=== PATIENT | female | born 1965 | race Caucasian/White ===

== ENCOUNTER 2016-06-01 12:39 | Emergency (ER) | payer OTHER, MEDICARE ==
--- NOTE | 2016-06-01 14:50 | EDDOCDS ---
Physician Documentation [facility] Name: Candice Malcolm Age: 50 yrs Sex: Female : 1965 Arrival Date: 06/01/2016 Time: 12:39 Bed TR7 Private MD: rGeg Wolf A. Disposition: 06/01/16 14:49 Patient has left against medical advice. - Patients states they are going to Home/Self Care. - Condition is Stable. Medication Reconciliation, Local Pharmacy Hours form. Follow up: Private Physician; When: As needed. Historical: - Allergies: Aspirin; Erythromycin; PENICILLINS; SULFA (SULFONAMIDES); - Home Meds: 1. Clozaril 325 oral once daily pt reports taking 650 mg this am (Last dose: 06/01/2016) 2. atenolol 25 mg Oral tab 1 tab once daily (Last dose: 05/31/2016) 3. Ativan 1 mg Oral tab 1 tab qid (Last dose: 06/01/2016) 4. Paxil 40 mg Oral tab 1 tab once daily (Last dose: 06/01/2016) 5. Requip 4 mg Oral tab 1 tab daily (Last dose: Unknown) 6. Synthroid 100 mcg oral tab 1 tab once daily - PMHx: Anxiety; Asthma; Depression; Hernia; Hypothyroidism; restless leg syndrome; tachycardia; - PSHx: D & C; Uterine Ablation; Tubal ligation; Oophorectomy- bilateral; - Social history: Smoking status: Patient states was never smoker of tobacco. No barriers to communication noted. - : The pt / caregiver states he / she is not on anticoagulants. Home medication list is obtained from the patient. - Exposure Risk Screening:: None identified. 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 I don't get them any more". mb9 Vital Signs: 12:41 BP 144 / 83; Pulse 105; Resp 18 S; Temp 96.9(O); Pulse Ox 100% on R/A; Weight 99.79 kg gr2 / 220 lbs (R); Height 5 ft. 6 in. (167.64 cm) (R); Pain 3/10; 12:41 Body Mass Index 35.51 (99.79 kg, 167.64 cm) gr2 MDM: 13:37 ED course: prior to going into patient's room patient had eloped notified PSA who will sd1 do pickup letter if unable to convince patient to return. Signatures: Junie Mccall MD MD sd1 Dereck Fuller RN RN bcj Rogelio Green RN RN mb9 MTDHuy
--- NOTE | 2016-06-01 14:50 | EDDOCDS ---
Nurse's Notes [facility] Name: Candice Malcolm Age: 50 yrs Sex: Female : 1965 Arrival Date: 06/01/2016 Time: 12:39 Bed TR7 Private MD: Greg Wolf A. Diagnosis: Presentation: 06/01 12:47 Presenting complaint: Patient states: "There is probably nothing you can do for me". mb9 pt's daughter states, "She takes clazaril and her dr in [place] told her to take a double dose this morning because she hasn't taken it in 2 days". pt reports that normally she takes 325 mg daily and that a Dr Chao in [place] told her to take 650 mg this am. pt reports missing a dose in the past that she has had the same symptoms. Adult Sepsis Screening: The patient does not have new or worsening altered mentation. Patient's respiratory rate is less than 22. Systolic blood pressure is greater than 100. Patient has a qSOFA score of 0- Negative Sepsis Screen. Suicide/Homicide risk assessment- the patient denies having any suicidal and/or homicidal ideations and does not present with any other emotional, behavioral or mental health complaints. 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 Transition of care: patient was not received from another setting of care. 12:47 Acuity: JAVED Level 3 mb9 12:47 Method Of Arrival: Walkin/Carried/Asstd mb9 Triage Assessment: 12:53 General: Appears in no apparent distress, Behavior is pleasant, quiet. Pain: Denies mb9 pain. HIV screening NA for this visit Offered previously. Neurological: Level of Consciousness is awake, alert, lethargic, Oriented to person, place, time. Respiratory: Airway is patent Respiratory effort is even, unlabored. 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 I don't get them any more". mb9 Historical: - Allergies: Aspirin; Erythromycin; PENICILLINS; SULFA (SULFONAMIDES); - Home Meds: 1. Clozaril 325 oral once daily pt reports taking 650 mg this am (Last dose: 06/01/2016) 2. atenolol 25 mg Oral tab 1 tab once daily (Last dose: 05/31/2016) 3. Ativan 1 mg Oral tab 1 tab qid (Last dose: 06/01/2016) 4. Paxil 40 mg Oral tab 1 tab once daily (Last dose: 06/01/2016) 5. Requip 4 mg Oral tab 1 tab daily (Last dose: Unknown) 6. Synthroid 100 mcg oral tab 1 tab once daily - PMHx: Anxiety; Asthma; Depression; Hernia; Hypothyroidism; restless leg syndrome; tachycardia; - PSHx: D & C; Uterine Ablation; Tubal ligation; Oophorectomy- bilateral; - Social history: Smoking status: Patient states was never smoker of tobacco. No barriers to communication noted. - : The pt / caregiver states he / she is not on anticoagulants. Home medication list is obtained from the patient. - Exposure Risk Screening:: None identified. Assessment: 13:13 General: TARAN Epps states he spoke with patient's psychiatrist and was told that he kcs would never tell a patient to double up on her meds and this should be treated as a true overdose.. Vital Signs: 12:41 BP 144 / 83; Pulse 105; Resp 18 S; Temp 96.9(O); Pulse Ox 100% on R/A; Weight 99.79 kg gr2 (R); Height 5 ft. 6 in. (167.64 cm) (R); Pain 3/10; 12:41 Body Mass Index 35.51 (99.79 kg, 167.64 cm) gr2 Vitals: 12:41 Log In Time: June 01, 2016 at 12:41. RN notified that patient meets Red Flag gr2 criteria. ED Course: 12:40 Patient visited by Fernanda Umaña. gr2 12:40 Patient moved to Waiting gr2 12:41 Greg Wolf is Private Physician. gr2 12:45 Patient visited by Fernanda Umaña. gr2 12:46 Patient moved to Pre RCE gr2 12:50 Triage Initiated mb9 13:00 Patient moved to Triage 3 mb9 13:31 Patient moved to 3 mb9 13:34 [facility] bs[facility] 13:34 Junei Mccall MD is Attending Physician. bs6 13:38 Patient moved to I10 / 23 sd1 13:44 Patient moved to TR7 mk4 Order Results: There are currently no results for this order. Outcome: 14:49 Patient left against medical advice. [facility] 14:49 Patient left the ED. [facility] Signatures: Junie Mccall MD MD sd1 Kerry Roldan, RN RN kcs Dereck Fuller RN RN bcj Fernanda Umaña gr2 Alisha Tineo RN RN mk4 Lorrie Albarado DO DO bs6 Rogelio GreenRN RN mb9 MTDD
--- NOTE | 2016-06-03 15:51 | EDDOCDS ---
Nurse's Notes [facility] Name: Candice Malcolm Age: 50 yrs Sex: Female : 1965 Arrival Date: 06/01/2016 Time: 12:39 Bed TR7 Private MD: Greg Wolf A. Diagnosis: Presentation: 06/01 12:47 Presenting complaint: Patient states: "There is probably nothing you can do for me". mb9 pt's daughter states, "She takes clazaril and her dr in [place] told her to take a double dose this morning because she hasn't taken it in 2 days". pt reports that normally she takes 325 mg daily and that a Dr Chao in [place] told her to take 650 mg this am. pt reports missing a dose in the past that she has had the same symptoms. Adult Sepsis Screening: The patient does not have new or worsening altered mentation. Patient's respiratory rate is less than 22. Systolic blood pressure is greater than 100. Patient has a qSOFA score of 0- Negative Sepsis Screen. Suicide/Homicide risk assessment- the patient denies having any suicidal and/or homicidal ideations and does not present with any other emotional, behavioral or mental health complaints. 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 Transition of care: patient was not received from another setting of care. 12:47 Acuity: JAVED Level 3 mb9 12:47 Method Of Arrival: Walkin/Carried/Asstd mb9 Triage Assessment: 12:53 General: Appears in no apparent distress, Behavior is pleasant, quiet. Pain: Denies mb9 pain. HIV screening NA for this visit Offered previously. Neurological: Level of Consciousness is awake, alert, lethargic, Oriented to person, place, time. Respiratory: Airway is patent Respiratory effort is even, unlabored. 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 I don't get them any more". mb9 Historical: - Allergies: Aspirin; Erythromycin; PENICILLINS; SULFA (SULFONAMIDES); - Home Meds: 1. Clozaril 325 oral once daily pt reports taking 650 mg this am (Last dose: 06/01/2016) 2. atenolol 25 mg Oral tab 1 tab once daily (Last dose: 05/31/2016) 3. Ativan 1 mg Oral tab 1 tab qid (Last dose: 06/01/2016) 4. Paxil 40 mg Oral tab 1 tab once daily (Last dose: 06/01/2016) 5. Requip 4 mg Oral tab 1 tab daily (Last dose: Unknown) 6. Synthroid 100 mcg oral tab 1 tab once daily - PMHx: Anxiety; Asthma; Depression; Hernia; Hypothyroidism; restless leg syndrome; tachycardia; - PSHx: D & C; Uterine Ablation; Tubal ligation; Oophorectomy- bilateral; - Social history: Smoking status: Patient states was never smoker of tobacco. No barriers to communication noted. - : The pt / caregiver states he / she is not on anticoagulants. Home medication list is obtained from the patient. - Exposure Risk Screening:: None identified. Assessment: 13:13 General: TARAN Epps states he spoke with patient's psychiatrist and was told that he kcs would never tell a patient to double up on her meds and this should be treated as a true overdose.. Vital Signs: 12:41 BP 144 / 83; Pulse 105; Resp 18 S; Temp 96.9(O); Pulse Ox 100% on R/A; Weight 99.79 kg gr2 (R); Height 5 ft. 6 in. (167.64 cm) (R); Pain 3/10; 12:41 Body Mass Index 35.51 (99.79 kg, 167.64 cm) gr2 Vitals: 12:41 Log In Time: June 01, 2016 at 12:41. RN notified that patient meets Red Flag gr2 criteria. ED Course: 12:40 Patient visited by Fernanda Umaña. gr2 12:40 Patient moved to Waiting gr2 12:41 Greg Wolf is Private Physician. gr2 12:45 Patient visited by Fernanda Umaña. gr2 12:46 Patient moved to Pre RCE gr2 12:50 Triage Initiated mb9 13:00 Patient moved to Triage 3 mb9 13:31 Patient moved to 3 mb9 13:34 [facility] bs[facility] 13:34 Junie Mccall MD is Attending Physician. bs6 13:38 Patient moved to I10 / 23 sd1 13:44 Patient moved to TR7 mk4 Order Results: There are currently no results for this order. Outcome: 14:49 Patient left against medical advice. [facility] 14:49 Patient left the ED. [facility] Signatures: Junie Mccall MD MD sd1 Kerry Roldan, RN RN kcs Dereck Fuller RN RN bcj Fernanda Umaña gr2 Alisha Tineo RN RN mk4 Lorrie Albarado DO DO bs6 Rogelio GreenRN RN mb9 Chart Complete MTDD
--- NOTE | 2016-06-03 15:51 | EDDOCDS ---
Physician Documentation [facility] Name: Candice Malcolm Age: 50 yrs Sex: Female : 1965 Arrival Date: 06/01/2016 Time: 12:39 Bed TR7 Private MD: Greg Wolf A. Disposition: 06/01/16 14:49 Patient has left against medical advice. - Patients states they are going to Home/Self Care. - Condition is Stable. Medication Reconciliation, Local Pharmacy Hours form. Follow up: Private Physician; When: As needed. Historical: - Allergies: Aspirin; Erythromycin; PENICILLINS; SULFA (SULFONAMIDES); - Home Meds: 1. Clozaril 325 oral once daily pt reports taking 650 mg this am (Last dose: 06/01/2016) 2. atenolol 25 mg Oral tab 1 tab once daily (Last dose: 05/31/2016) 3. Ativan 1 mg Oral tab 1 tab qid (Last dose: 06/01/2016) 4. Paxil 40 mg Oral tab 1 tab once daily (Last dose: 06/01/2016) 5. Requip 4 mg Oral tab 1 tab daily (Last dose: Unknown) 6. Synthroid 100 mcg oral tab 1 tab once daily - PMHx: Anxiety; Asthma; Depression; Hernia; Hypothyroidism; restless leg syndrome; tachycardia; - PSHx: D & C; Uterine Ablation; Tubal ligation; Oophorectomy- bilateral; - Social history: Smoking status: Patient states was never smoker of tobacco. No barriers to communication noted. - : The pt / caregiver states he / she is not on anticoagulants. Home medication list is obtained from the patient. - Exposure Risk Screening:: None identified. 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 I don't get them any more". mb9 Vital Signs: 12:41 BP 144 / 83; Pulse 105; Resp 18 S; Temp 96.9(O); Pulse Ox 100% on R/A; Weight 99.79 kg gr2 / 220 lbs (R); Height 5 ft. 6 in. (167.64 cm) (R); Pain 3/10; 12:41 Body Mass Index 35.51 (99.79 kg, 167.64 cm) gr2 MDM: 13:37 ED course: prior to going into patient's room patient had eloped notified PSA who will sd1 do pickup letter if unable to convince patient to return. Signatures: Junie Mccall MD MD sd1 Dereck Fuller RN RN bcj Rogelio Green RN RN mb9 Chart Complete MTDD
--- NOTE | 2016-06-03 15:51 | EDDOCDS ---
Physician Documentation [facility] Name: Candice Malcolm Age: 50 yrs Sex: Female : 1965 Arrival Date: 06/01/2016 Time: 12:39 Bed TR7 Private MD: Greg Wolf A. Disposition: 06/01/16 14:49 Patient has left against medical advice. - Patients states they are going to Home/Self Care. - Condition is Stable. Medication Reconciliation, Local Pharmacy Hours form. Follow up: Private Physician; When: As needed. Historical: - Allergies: Aspirin; Erythromycin; PENICILLINS; SULFA (SULFONAMIDES); - Home Meds: 1. Clozaril 325 oral once daily pt reports taking 650 mg this am (Last dose: 06/01/2016) 2. atenolol 25 mg Oral tab 1 tab once daily (Last dose: 05/31/2016) 3. Ativan 1 mg Oral tab 1 tab qid (Last dose: 06/01/2016) 4. Paxil 40 mg Oral tab 1 tab once daily (Last dose: 06/01/2016) 5. Requip 4 mg Oral tab 1 tab daily (Last dose: Unknown) 6. Synthroid 100 mcg oral tab 1 tab once daily - PMHx: Anxiety; Asthma; Depression; Hernia; Hypothyroidism; restless leg syndrome; tachycardia; - PSHx: D & C; Uterine Ablation; Tubal ligation; Oophorectomy- bilateral; - Social history: Smoking status: Patient states was never smoker of tobacco. No barriers to communication noted. - : The pt / caregiver states he / she is not on anticoagulants. Home medication list is obtained from the patient. - Exposure Risk Screening:: None identified. 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 I don't get them any more". mb9 Vital Signs: 12:41 BP 144 / 83; Pulse 105; Resp 18 S; Temp 96.9(O); Pulse Ox 100% on R/A; Weight 99.79 kg gr2 / 220 lbs (R); Height 5 ft. 6 in. (167.64 cm) (R); Pain 3/10; 12:41 Body Mass Index 35.51 (99.79 kg, 167.64 cm) gr2 MDM: 13:37 ED course: prior to going into patient's room patient had eloped notified PSA who will sd1 do pickup letter if unable to convince patient to return. Signatures: Junie Mccall MD MD sd1 Dereck Fuller RN RN bcj Rogelio Green RN RN mb9 Chart Complete MTDD
--- NOTE | 2016-06-07 07:53 | EDDOCDS ---
Nurse's Notes [facility] Name: Candice Malcolm Age: 50 yrs Sex: Female : 1965 Arrival Date: 06/01/2016 Time: 12:39 Bed TR7 Private MD: Greg Wolf A. Diagnosis: Presentation: 06/01 12:47 Presenting complaint: Patient states: "There is probably nothing you can do for me". mb9 pt's daughter states, "She takes clazaril and her dr in [place] told her to take a double dose this morning because she hasn't taken it in 2 days". pt reports that normally she takes 325 mg daily and that a Dr Chao in [place] told her to take 650 mg this am. pt reports missing a dose in the past that she has had the same symptoms. Adult Sepsis Screening: The patient does not have new or worsening altered mentation. Patient's respiratory rate is less than 22. Systolic blood pressure is greater than 100. Patient has a qSOFA score of 0- Negative Sepsis Screen. Suicide/Homicide risk assessment- the patient denies having any suicidal and/or homicidal ideations and does not present with any other emotional, behavioral or mental health complaints. 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 Transition of care: patient was not received from another setting of care. 12:47 Acuity: JAVED Level 3 mb9 12:47 Method Of Arrival: Walkin/Carried/Asstd mb9 Triage Assessment: 12:53 General: Appears in no apparent distress, Behavior is pleasant, quiet. Pain: Denies mb9 pain. HIV screening NA for this visit Offered previously. Neurological: Level of Consciousness is awake, alert, lethargic, Oriented to person, place, time. Respiratory: Airway is patent Respiratory effort is even, unlabored. 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 I don't get them any more". mb9 Historical: - Allergies: Aspirin; Erythromycin; PENICILLINS; SULFA (SULFONAMIDES); - Home Meds: 1. Clozaril 325 oral once daily pt reports taking 650 mg this am (Last dose: 06/01/2016) 2. atenolol 25 mg Oral tab 1 tab once daily (Last dose: 05/31/2016) 3. Ativan 1 mg Oral tab 1 tab qid (Last dose: 06/01/2016) 4. Paxil 40 mg Oral tab 1 tab once daily (Last dose: 06/01/2016) 5. Requip 4 mg Oral tab 1 tab daily (Last dose: Unknown) 6. Synthroid 100 mcg oral tab 1 tab once daily - PMHx: Anxiety; Asthma; Depression; Hernia; Hypothyroidism; restless leg syndrome; tachycardia; - PSHx: D & C; Uterine Ablation; Tubal ligation; Oophorectomy- bilateral; - Social history: Smoking status: Patient states was never smoker of tobacco. No barriers to communication noted. - : The pt / caregiver states he / she is not on anticoagulants. Home medication list is obtained from the patient. - Exposure Risk Screening:: None identified. Assessment: 13:13 General: TARAN Epps states he spoke with patient's psychiatrist and was told that he [facility] would never tell a patient to double up on her meds and this should be treated as a true overdose.. Vital Signs: 12:41 BP 144 / 83; Pulse 105; Resp 18 S; Temp 96.9(O); Pulse Ox 100% on R/A; Weight 99.79 kg gr2 (R); Height 5 ft. 6 in. (167.64 cm) (R); Pain 3/10; 12:41 Body Mass Index 35.51 (99.79 kg, 167.64 cm) gr2 Vitals: 12:41 Log In Time: June 01, 2016 at 12:41. RN notified that patient meets Red Flag gr2 criteria. ED Course: 12:40 Patient visited by Fernanda Umaña. gr2 12:40 Patient moved to Waiting gr2 12:41 Greg Wolf is Private Physician. gr2 12:45 Patient visited by Fernanda Umaña. gr2 12:46 Patient moved to Pre RCE gr2 12:50 Triage Initiated mb9 13:00 Patient moved to Triage 3 mb9 13:31 Patient moved to 3 mb9 13:34 [facility] Albarado [facility] bs6 13:34 Junie Mccall MD is Attending Physician. bs6 13:38 Patient moved to I10 / 23 sd1 13:44 Patient moved to TR7 mk4 Order Results: There are currently no results for this order. Outcome: 14:49 Patient left against medical advice. [facility] 14:49 Patient left the ED. [facility] Addendum: 06/07/2016 07:52 Narrative: Pt returned a few hours later for treatment of same. tc Signatures: Junie Mccall MD MD sd1 Kerry Roldan, RN RN [facility] Arlet Lainez tc Dereck Fuller RN RN trevorj Fernanda Umaña gr2 Alisha Tineo RN RN mk4 Lorrie Albarado, DO bs6 Rogelio GreenRN RN mb9 MTDD
--- NOTE | 2016-06-07 07:53 | EDDOCDS ---
Physician Documentation [facility] Name: Candice Malcolm Age: 50 yrs Sex: Female : 1965 Arrival Date: 06/01/2016 Time: 12:39 Bed TR7 Private MD: Greg Wolf A. Disposition: 06/01/16 14:49 Patient has left against medical advice. - Patients states they are going to Home/Self Care. - Condition is Stable. Medication Reconciliation, Local Pharmacy Hours form. Follow up: Private Physician; When: As needed. Historical: - Allergies: Aspirin; Erythromycin; PENICILLINS; SULFA (SULFONAMIDES); - Home Meds: 1. Clozaril 325 oral once daily pt reports taking 650 mg this am (Last dose: 06/01/2016) 2. atenolol 25 mg Oral tab 1 tab once daily (Last dose: 05/31/2016) 3. Ativan 1 mg Oral tab 1 tab qid (Last dose: 06/01/2016) 4. Paxil 40 mg Oral tab 1 tab once daily (Last dose: 06/01/2016) 5. Requip 4 mg Oral tab 1 tab daily (Last dose: Unknown) 6. Synthroid 100 mcg oral tab 1 tab once daily - PMHx: Anxiety; Asthma; Depression; Hernia; Hypothyroidism; restless leg syndrome; tachycardia; - PSHx: D & C; Uterine Ablation; Tubal ligation; Oophorectomy- bilateral; - Social history: Smoking status: Patient states was never smoker of tobacco. No barriers to communication noted. - : The pt / caregiver states he / she is not on anticoagulants. Home medication list is obtained from the patient. - Exposure Risk Screening:: None identified. 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 I don't get them any more". mb9 Vital Signs: 12:41 BP 144 / 83; Pulse 105; Resp 18 S; Temp 96.9(O); Pulse Ox 100% on R/A; Weight 99.79 kg gr2 / 220 lbs (R); Height 5 ft. 6 in. (167.64 cm) (R); Pain 3/10; 12:41 Body Mass Index 35.51 (99.79 kg, 167.64 cm) gr2 MDM: 13:37 ED course: prior to going into patient's room patient had eloped notified PSA who will sd1 do pickup letter if unable to convince patient to return. Signatures: Junie Mccall MD MD sd1 Dereck Fuller RN RN bcj Rogelio Green RN RN mb9 MTDHuy
--- NOTE | 2016-06-07 07:53 | EDDOCDS ---
Physician Documentation [facility] Name: Candice Malcolm Age: 50 yrs Sex: Female : 1965 Arrival Date: 06/01/2016 Time: 12:39 Bed TR7 Private MD: Greg Wolf A. Disposition: 06/01/16 14:49 Patient has left against medical advice. - Patients states they are going to Home/Self Care. - Condition is Stable. Medication Reconciliation, Local Pharmacy Hours form. Follow up: Private Physician; When: As needed. Historical: - Allergies: Aspirin; Erythromycin; PENICILLINS; SULFA (SULFONAMIDES); - Home Meds: 1. Clozaril 325 oral once daily pt reports taking 650 mg this am (Last dose: 06/01/2016) 2. atenolol 25 mg Oral tab 1 tab once daily (Last dose: 05/31/2016) 3. Ativan 1 mg Oral tab 1 tab qid (Last dose: 06/01/2016) 4. Paxil 40 mg Oral tab 1 tab once daily (Last dose: 06/01/2016) 5. Requip 4 mg Oral tab 1 tab daily (Last dose: Unknown) 6. Synthroid 100 mcg oral tab 1 tab once daily - PMHx: Anxiety; Asthma; Depression; Hernia; Hypothyroidism; restless leg syndrome; tachycardia; - PSHx: D & C; Uterine Ablation; Tubal ligation; Oophorectomy- bilateral; - Social history: Smoking status: Patient states was never smoker of tobacco. No barriers to communication noted. - : The pt / caregiver states he / she is not on anticoagulants. Home medication list is obtained from the patient. - Exposure Risk Screening:: None identified. 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 I don't get them any more". mb9 Vital Signs: 12:41 BP 144 / 83; Pulse 105; Resp 18 S; Temp 96.9(O); Pulse Ox 100% on R/A; Weight 99.79 kg gr2 / 220 lbs (R); Height 5 ft. 6 in. (167.64 cm) (R); Pain 3/10; 12:41 Body Mass Index 35.51 (99.79 kg, 167.64 cm) gr2 MDM: 13:37 ED course: prior to going into patient's room patient had eloped notified PSA who will sd1 do pickup letter if unable to convince patient to return. Signatures: Junie Mccall MD MD sd1 Dereck Fuller RN RN bcj Rogelio Green RN RN mb9 MTDHuy
--- NOTE | 2016-06-08 13:08 | EDDOCDS ---
Nurse's Notes [facility] Name: Candice Malcolm Age: 50 yrs Sex: Female : 1965 Arrival Date: 06/01/2016 Time: 12:39 Bed TR7 Private MD: Greg Wolf A. Diagnosis: Presentation: 06/01 12:47 Presenting complaint: Patient states: "There is probably nothing you can do for me". mb9 pt's daughter states, "She takes clazaril and her dr in [place] told her to take a double dose this morning because she hasn't taken it in 2 days". pt reports that normally she takes 325 mg daily and that a Dr Chao in [place] told her to take 650 mg this am. pt reports missing a dose in the past that she has had the same symptoms. Adult Sepsis Screening: The patient does not have new or worsening altered mentation. Patient's respiratory rate is less than 22. Systolic blood pressure is greater than 100. Patient has a qSOFA score of 0- Negative Sepsis Screen. Suicide/Homicide risk assessment- the patient denies having any suicidal and/or homicidal ideations and does not present with any other emotional, behavioral or mental health complaints. 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 Transition of care: patient was not received from another setting of care. 12:47 Acuity: JAVED Level 3 mb9 12:47 Method Of Arrival: Walkin/Carried/Asstd mb9 Triage Assessment: 12:53 General: Appears in no apparent distress, Behavior is pleasant, quiet. Pain: Denies mb9 pain. HIV screening NA for this visit Offered previously. Neurological: Level of Consciousness is awake, alert, lethargic, Oriented to person, place, time. Respiratory: Airway is patent Respiratory effort is even, unlabored. 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 I don't get them any more". mb9 Historical: - Allergies: Aspirin; Erythromycin; PENICILLINS; SULFA (SULFONAMIDES); - Home Meds: 1. Clozaril 325 oral once daily pt reports taking 650 mg this am (Last dose: 06/01/2016) 2. atenolol 25 mg Oral tab 1 tab once daily (Last dose: 05/31/2016) 3. Ativan 1 mg Oral tab 1 tab qid (Last dose: 06/01/2016) 4. Paxil 40 mg Oral tab 1 tab once daily (Last dose: 06/01/2016) 5. Requip 4 mg Oral tab 1 tab daily (Last dose: Unknown) 6. Synthroid 100 mcg oral tab 1 tab once daily - PMHx: Anxiety; Asthma; Depression; Hernia; Hypothyroidism; restless leg syndrome; tachycardia; - PSHx: D & C; Uterine Ablation; Tubal ligation; Oophorectomy- bilateral; - Social history: Smoking status: Patient states was never smoker of tobacco. No barriers to communication noted. - : The pt / caregiver states he / she is not on anticoagulants. Home medication list is obtained from the patient. - Exposure Risk Screening:: None identified. Assessment: 13:13 General: TARAN Epps states he spoke with patient's psychiatrist and was told that he [facility] would never tell a patient to double up on her meds and this should be treated as a true overdose.. Vital Signs: 12:41 BP 144 / 83; Pulse 105; Resp 18 S; Temp 96.9(O); Pulse Ox 100% on R/A; Weight 99.79 kg gr2 (R); Height 5 ft. 6 in. (167.64 cm) (R); Pain 3/10; 12:41 Body Mass Index 35.51 (99.79 kg, 167.64 cm) gr2 Vitals: 12:41 Log In Time: June 01, 2016 at 12:41. RN notified that patient meets Red Flag gr2 criteria. ED Course: 12:40 Patient visited by Fernanda Umaña. gr2 12:40 Patient moved to Waiting gr2 12:41 Greg Wolf is Private Physician. gr2 12:45 Patient visited by Fernanda Umaña. gr2 12:46 Patient moved to Pre RCE gr2 12:50 Triage Initiated mb9 13:00 Patient moved to Triage 3 mb9 13:31 Patient moved to 3 mb9 13:34 [facility] bs6 13:34 Junie Mccall MD is Attending Physician. bs6 13:38 Patient moved to I10 / 23 sd1 13:44 Patient moved to TR7 mk4 Order Results: There are currently no results for this order. Outcome: 14:49 Patient left against medical advice. [facility] 14:49 Patient left the ED. [facility] Addendum: 06/07/2016 07:52 Narrative: Pt returned a few hours later for treatment of same. tc Signatures: Junie Mccall MD MD sd1 Kerry Roldan, RN RN [facility] Arlet Lainez tc Dereck Fuller RN RN bcj Fernanda Umaña gr2 Alisha Tineo RN RN mk4 Lorrie Albarado, DO DO bs6 Rogelio GreenRN RN mb9 Chart Complete MTDD
--- NOTE | 2016-06-08 13:08 | EDDOCDS ---
Physician Documentation [facility] Name: Candice Malcolm Age: 50 yrs Sex: Female : 1965 Arrival Date: 06/01/2016 Time: 12:39 Bed TR7 Private MD: Greg Wolf A. Disposition: 06/01/16 14:49 Patient has left against medical advice. - Patients states they are going to Home/Self Care. - Condition is Stable. Medication Reconciliation, Local Pharmacy Hours form. Follow up: Private Physician; When: As needed. Historical: - Allergies: Aspirin; Erythromycin; PENICILLINS; SULFA (SULFONAMIDES); - Home Meds: 1. Clozaril 325 oral once daily pt reports taking 650 mg this am (Last dose: 06/01/2016) 2. atenolol 25 mg Oral tab 1 tab once daily (Last dose: 05/31/2016) 3. Ativan 1 mg Oral tab 1 tab qid (Last dose: 06/01/2016) 4. Paxil 40 mg Oral tab 1 tab once daily (Last dose: 06/01/2016) 5. Requip 4 mg Oral tab 1 tab daily (Last dose: Unknown) 6. Synthroid 100 mcg oral tab 1 tab once daily - PMHx: Anxiety; Asthma; Depression; Hernia; Hypothyroidism; restless leg syndrome; tachycardia; - PSHx: D & C; Uterine Ablation; Tubal ligation; Oophorectomy- bilateral; - Social history: Smoking status: Patient states was never smoker of tobacco. No barriers to communication noted. - : The pt / caregiver states he / she is not on anticoagulants. Home medication list is obtained from the patient. - Exposure Risk Screening:: None identified. 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 I don't get them any more". mb9 Vital Signs: 12:41 BP 144 / 83; Pulse 105; Resp 18 S; Temp 96.9(O); Pulse Ox 100% on R/A; Weight 99.79 kg gr2 / 220 lbs (R); Height 5 ft. 6 in. (167.64 cm) (R); Pain 3/10; 12:41 Body Mass Index 35.51 (99.79 kg, 167.64 cm) gr2 MDM: 13:37 ED course: prior to going into patient's room patient had eloped notified PSA who will sd1 do pickup letter if unable to convince patient to return. Signatures: Junie Mccall MD MD sd1 Dereck Fuller RN RN bcj Rogelio Green RN RN mb9 Chart Complete MTDD
--- NOTE | 2016-06-08 13:08 | EDDOCDS ---
Physician Documentation [facility] Name: Candice Malcolm Age: 50 yrs Sex: Female : 1965 Arrival Date: 06/01/2016 Time: 12:39 Bed TR7 Private MD: Greg Wolf A. Disposition: 06/01/16 14:49 Patient has left against medical advice. - Patients states they are going to Home/Self Care. - Condition is Stable. Medication Reconciliation, Local Pharmacy Hours form. Follow up: Private Physician; When: As needed. Historical: - Allergies: Aspirin; Erythromycin; PENICILLINS; SULFA (SULFONAMIDES); - Home Meds: 1. Clozaril 325 oral once daily pt reports taking 650 mg this am (Last dose: 06/01/2016) 2. atenolol 25 mg Oral tab 1 tab once daily (Last dose: 05/31/2016) 3. Ativan 1 mg Oral tab 1 tab qid (Last dose: 06/01/2016) 4. Paxil 40 mg Oral tab 1 tab once daily (Last dose: 06/01/2016) 5. Requip 4 mg Oral tab 1 tab daily (Last dose: Unknown) 6. Synthroid 100 mcg oral tab 1 tab once daily - PMHx: Anxiety; Asthma; Depression; Hernia; Hypothyroidism; restless leg syndrome; tachycardia; - PSHx: D & C; Uterine Ablation; Tubal ligation; Oophorectomy- bilateral; - Social history: Smoking status: Patient states was never smoker of tobacco. No barriers to communication noted. - : The pt / caregiver states he / she is not on anticoagulants. Home medication list is obtained from the patient. - Exposure Risk Screening:: None identified. 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 I don't get them any more". mb9 Vital Signs: 12:41 BP 144 / 83; Pulse 105; Resp 18 S; Temp 96.9(O); Pulse Ox 100% on R/A; Weight 99.79 kg gr2 / 220 lbs (R); Height 5 ft. 6 in. (167.64 cm) (R); Pain 3/10; 12:41 Body Mass Index 35.51 (99.79 kg, 167.64 cm) gr2 MDM: 13:37 ED course: prior to going into patient's room patient had eloped notified PSA who will sd1 do pickup letter if unable to convince patient to return. Signatures: Junie Mccall MD MD sd1 Dercek Fuller RN RN bcj Rogelio Green RN RN mb9 Chart Complete MTDD
== END 2016-06-01 14:49 | disposition left against medical advice (07) ==
LOC: M ED 12:39
DX: T43.501A Poisoning by unspecified antipsychotics and neuroleptics, accidental (unintentional), initial encounter (principal); X58.XXXA Exposure to other specified factors, initial encounter; Y92.89 Other specified places as the place of occurrence of the external cause; Y93.89 Activity, other specified; Y99.8 Other external cause status; F41.9 Anxiety disorder, unspecified; J45.909 Unspecified asthma, uncomplicated; F32.9 Major depressive disorder, single episode, unspecified; K46.9 Unspecified abdominal hernia without obstruction or gangrene; E03.9 Hypothyroidism, unspecified; G25.81 Restless legs syndrome; R00.0 Tachycardia, unspecified; Z79.899 Other long term (current) drug therapy; Z88.6 Allergy status to analgesic agent; Z88.1 Allergy status to other antibiotic agents; Z88.0 Allergy status to penicillin; Z88.2 Allergy status to sulfonamides; Z53.29 Procedure and treatment not carried out because of patient's decision for other reasons

== ENCOUNTER 2016-06-01 15:16 | Emergency (ER) | payer OTHER, MEDICARE ==
[2016-06-01 16:34] LABS: MEAN CORPUSCULAR HEMOGLOBIN 30.4 pg (27.0-33.0); MEAN CORPUSCULAR HGB CONC 35.1 g/dl (32.0-36.5); MEAN CORPUSCULAR VOLUME 86.6 fl (80.0-96.0); RED CELL DISTRIBUTION WIDTH 13.1 % (11.5-14.5); WHITE BLOOD COUNT 4.9 K/mm3 (4.0-10.0)
[2016-06-01 16:58] LABS: ALBUMIN 3.6 GM/DL (3.2-5.2); ALBUMIN/GLOBULIN RATIO 1.06 (1.00-1.93); ALKALINE PHOSPHATASE 147 U/L (45-117); ALT/SGPT 50 U/L (12-78); ANION GAP 9 MEQ/L (8-16); AST/SGOT 34 U/L (15-37); BILIRUBIN,DIRECT < 0.1 MG/DL (0.0-0.2); BILIRUBIN,TOTAL 0.3 MG/DL (0.2-1.0); BLOOD UREA NITROGEN 11 MG/DL (7-18); CALCIUM LEVEL 8.3 MG/DL (8.5-10.1); CARBON DIOXIDE LEVEL 25 MEQ/L (21-32); CHLORIDE LEVEL 110 MEQ/L (98-107); CREATININE FOR GFR 0.77 MG/DL (0.55-1.02); GLOMERULAR FILTRATION RATE > 60.0 (>51); GLUCOSE, FASTING 85 MG/DL (70-105); POTASSIUM SERUM 4.1 MEQ/L (3.5-5.1); SODIUM LEVEL 144 MEQ/L (136-145)
[2016-06-01] MEDS ORDERED: ACETAMINOPHEN 325 MG TAB As Ordered ONE (18:00)
--- NOTE | 2016-06-01 18:24 | EDDOCDS ---
Physician Documentation [facility] Name: Candice Malcolm Age: 50 yrs Sex: Female : 1965 Arrival Date: 06/01/2016 Time: 15:16 Bed 13 Private MD: Disposition: 06/01/16 18:05 Discharged to Home/Self Care. Impression: Patient's noncompliance with medical treatment and regimen. - Condition is Stable. - Medication Reconciliation, Local Pharmacy Hours form. - Follow up: Private Physician; When: Call to arrange an appointment; Reason: Recheck today's complaints. - Problem is an ongoing problem. - Symptoms have improved. Historical: - Allergies: Aspirin; Erythromycin; PENICILLINS; SULFA (SULFONAMIDES); - Home Meds: 1. atenolol 25 mg Oral tab 1 tab once daily (Last dose: 06/01/2016 08:00) 2. Ativan 1 mg Oral tab 1 tab qid (Last dose: 06/01/2016 08:00) 3. Clozaril 325 oral once daily pt reports taking 650 mg this am (Last dose: 06/01/2016 08:00) 4. Paxil 40 mg Oral tab 1 tab once daily (Last dose: 05/31/2016) 5. Requip 4 mg Oral tab 1 tab daily (Last dose: 05/31/2016) 6. Synthroid 100 mcg Oral tab 1 tab once daily (Last dose: 06/01/2016 08:00) 7. Anafranil 50 mg oral cap 4 caps nightly (Last dose: 05/31/2016) - PMHx: Anxiety; Asthma; Depression; Hernia; Hypothyroidism; restless leg syndrome; tachycardia; - PSHx: D & C; Uterine Ablation; Tubal ligation; Oophorectomy- bilateral; - Social history: Smoking status: Patient states was never smoker of tobacco. No barriers to communication noted, The patient speaks fluent South Korean, Speaks appropriately for age. - Family history: Not pertinent. - : The pt / caregiver states he / she is not on anticoagulants. Home medication list is obtained from the patient. - Exposure Risk Screening:: None identified. 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 6 in. 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 sd1 16:08 ECG WITH READING ER PHYS+CARDIAG ordered. EDMS 16:08 Consult PFS/PSA/Wire Twister ordered. sd1 16:08 Consult PFS/PSA/Wire Twister: Patient's case requires discussion with on-call wy1 Psychiatrist ordered. 16:08 PSA/PFS to call Nursing Financial Institution Branch Manager, to enter patient data on [place] Safe [place] if patient sd1 involuntarily admitted or transferred for SI or HI ordered. 16:08 Confirm accurate psychiatric medication list and times of last dosage ordered. sd1 16:08 Detain Pt Until Medically/PFS Cleared ordered. sd1 16:09 Acetaminophen Level Ordered. EDMS 16:09 Basic Metabolic Profile Ordered. EDMS 16:09 Complete Blood Count Ordered. EDMS 16:09 Drug Eval Toxicology ED Only Ordered. EDMS 16:09 Ethyl Alcohol (ethanol) Ordered. EDMS 16:09 Liver Profile Ordered. EDMS 16:09 Salicylate Level Ordered. EDMS 16:09 Thyroid Stimulating Hormone Ordered. EDMS 16:22 Consult PFS/PSA/Wire Twister complete. dsf 16:22 Consult PFS/PSA/Wire Twister: Patient's case requires discussion with on-call [facility] Psychiatrist complete. 16:22 PSA/PFS to call Nursing Financial Institution Branch Manager, to enter patient data [place] Safe [place] if patient dsf involuntarily admitted or transferred for SI or HI complete. 17:54 Acetaminophen Level Reviewed. cs11 17:54 Basic Metabolic Profile Reviewed. cs11 17:54 Liver Profile Reviewed. cs11 17:54 Salicylate Level Reviewed. cs11 17:54 Complete Blood Count Reviewed. cs11 17:54 Ethyl Alcohol (ethanol) Reviewed. cs11 17:54 Thyroid Stimulating Hormone Reviewed. cs11 17:55 Acetaminophen Tablet 650 mg PO once ordered. cs11 Administered Medications: 18:20 Drug: Acetaminophen 650 mg [acetaminophen 325 mg tablet (2 tabs)] Route: PO; dsf Signatures: Dispatcher [employer] Junie Basurto MD MD sd1 Shanel Vidal,RN RN dsf Jorge Luis Bartlett, DO DO cs11 MTDHuy
--- NOTE | 2016-06-01 18:24 | EDDOCDS ---
Nurse's Notes [facility] Name: Candice Malcolm Age: 50 yrs Sex: Female : 1965 Arrival Date: 06/01/2016 Time: 15:16 Bed 13 Private MD: Diagnosis: Patient's noncompliance with medical treatment and regimen Presentation: 06/01 15:19 Presenting complaint: Patient states: brought in by police and EMS. Pt states she has dsf been out of her clazaril for 2 nights and her doctor in [place] told her to take 2 doses. Pt states her doctor has had her do that in the past . Pt denies SI or HI. Suicide/Homicide risk assessment- the patient denies having any suicidal and/or homicidal ideations and does not present with any other emotional, behavioral or mental health complaints. 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 Transition of care: patient was not received from another setting of care. 15:19 Acuity: JAVED Level 3 dsf 15:19 Method Of Arrival: Ambulance dsf 15:19 Adult Sepsis Screening: The patient does not have new or worsening altered mentation. dsf Patient's respiratory rate is less than 22. Systolic blood pressure is greater than 100. Patient has a qSOFA score of 0- Negative Sepsis Screen. Triage Assessment: 15:23 General: Appears in no apparent distress, Behavior is appropriate for age, cooperative. dsf Pain: Location: head Pain currently is 5 out of 10 on a pain scale. Quality of pain is described as aching. HIV screening NA for this visit Offered previously. Neurological: Level of Consciousness is awake, alert. Cardiovascular: No deficits noted. Respiratory: No deficits noted. Derm: Skin is pink, warm & dry. 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 atenolol 25 mg Oral tab 1 tab once daily (Last dose: 06/01/2016 08:00) 2. Ativan 1 mg Oral tab 1 tab qid (Last dose: 06/01/2016 08:00) 3. Clozaril 325 oral once daily pt reports taking 650 mg this am (Last dose: 06/01/2016 08:00) 4. Paxil 40 mg Oral tab 1 tab once daily (Last dose: 05/31/2016) 5. Requip 4 mg Oral tab 1 tab daily (Last dose: 05/31/2016) 6. Synthroid 100 mcg Oral tab 1 tab once daily (Last dose: 06/01/2016 08:00) 7. Anafranil 50 mg oral cap 4 caps nightly (Last dose: 05/31/2016) - PMHx: Anxiety; Asthma; Depression; Hernia; Hypothyroidism; restless leg syndrome; tachycardia; - PSHx: D & C; Uterine Ablation; Tubal ligation; Oophorectomy- bilateral; - Social history: Smoking status: Patient states was never smoker of tobacco. No barriers to communication noted, The patient speaks fluent Turkmen, Speaks appropriately for age. - Family history: Not pertinent. - : The pt / caregiver states he / she is not on anticoagulants. Home medication list is obtained from the patient. - Exposure Risk Screening:: None identified. Screenin:22 Screening information is obtained from the patient. Fall risk: No risks identified. dsf Assistance ADL's: requires no assistance with activities of daily living. Abuse/DV Screen: The patient / caregiver reports he/she is: not in a situation that causes fear, pain or injury. Nutritional screening: No deficits noted. Advance Directives: Currently, there is no health care proxy. home support is adequate. Assessment: 15:23 Adult Sepsis Screening: The patient does not have new or worsening altered mentation. dsf Patient's respiratory rate is less than 22. Systolic blood pressure is greater than 100. Patient has a qSOFA score of 0- Negative Sepsis Screen. General: see triage nursing assessment . 16:23 General: Appears in no apparent distress, comfortable, Behavior is appropriate for age, dsf cooperative, Smells of cat urine . Pain: Denies pain. Neurological: Level of Consciousness is awake, alert, Oriented to person, place, time. Cardiovascular: Capillary refill < 3 seconds Heart tones S1 S2 present. Respiratory: Airway is patent Respiratory effort is even, unlabored, Respiratory pattern is regular, symmetrical, Breath sounds are clear bilaterally. GI: Abdomen is non- distended Bowel sounds present X 4 quads. Abd is soft and non tender X 4 quads. Derm: Skin is pink, warm & dry. 17:13 General: purse, cellphone and ativan medication pill bottle given to daughter to take dsf home . 17:16 General: Appears in no apparent distress, Behavior is appropriate for age, cooperative. dsf Neurological: Level of Consciousness is awake, alert. Cardiovascular: Capillary refill < 3 seconds. Respiratory: Airway is patent Respiratory effort is even, unlabored, Respiratory pattern is regular, symmetrical. Derm: Skin is pink, warm & dry. 17:50 General: Appears in no apparent distress, Behavior is appropriate for age, cooperative. dsf Neurological: Level of Consciousness is awake, alert. Cardiovascular: Capillary refill < 3 seconds. Respiratory: Airway is patent Respiratory effort is even, unlabored, Respiratory pattern is regular, symmetrical. Derm: Skin is pink, warm & dry. 18:21 Adult Sepsis Screening: The patient does not have new or worsening altered mentation. dsf Patient's respiratory rate is less than 22. Systolic blood pressure is greater than 100. Patient has a qSOFA score of 0- Negative Sepsis Screen. General: Appears in no apparent distress, Behavior is appropriate for age, cooperative. Pain: Location: head Pain currently is 5 out of 10 on a pain scale. Neurological: Level of Consciousness is awake, alert. Cardiovascular: No deficits noted. Respiratory: No deficits noted. Derm: Skin is pink, warm & dry. Vital Signs: 15:23 BP 152 / 78; Pulse 91; Resp 20; Pulse Ox 98% on R/A; Weight 99.79 kg (R); Height 5 ft. dsf 6 in. (167.64 cm); Pain 5/10; 15:25 BP 152 / 78 (auto/); dsf 16:20 BP 166 / 87 (auto/); dsf 16:21 Pulse 92 MON; Pulse Ox 95% ; dsf 16:35 BP 164 / 96 (auto/); dsf 16:35 Pulse 90 MON; Pulse Ox 97% ; dsf 16:50 BP 168 / 117 (auto/); dsf 16:50 Pulse 88 MON; Pulse Ox 97% ; dsf 16:51 Pulse 88 MON; Pulse Ox 97% ; dsf 17:05 BP 134 / 66 (auto/); dsf 17:05 Pulse 82 MON; Pulse Ox 96% ; dsf 18:05 BP 137 / 65; Pulse 81; Resp 20; Temp 98.2(TE); Pulse Ox 98% on R/A; Pain 10/06; dsf 15:23 Body Mass Index 35.51 (99.79 kg, 167.64 cm) dsf Vitals: 15:23 Log In Time N/A - ambulance arrival. dsf ED Course: 15:17 Patient visited by Kim Thomason, Professional Fee Coder. lbd 15:17 Patient moved to Waiting lbd 15:17 Patient moved to 13 lbd 15:20 Triage Initiated dsf 15:48 Patient visited by Shanel Vidal RN. dsf 15:59 Junie Mccall MD is Attending Physician. sd1 15:59 Patient visited by Junie Mccall MD. sd1 16:01 Property removed, inventory done, secured in secure belongings bag, Secure bag Number dpm [id number], placed in ED safe. 16:21 Accompanied by Family Member, Patient has correct armband on for positive ct3 identification. Placed in psych safe attire. Bed in low position. Call light in reach. Side rails up X 1. child monitor on. Pulse ox on. NIBP on. 16:21 EKG done. (by ED staff). Reviewed by Junie Mccall MD. ct3 16:22 Acetaminophen Level Sent. dsf 16:22 Basic Metabolic Profile Sent. dsf 16:22 Complete Blood Count Sent. dsf 16:22 Ethyl Alcohol (ethanol) Sent. dsf 16:22 Liver Profile Sent. dsf 16:22 Salicylate Level Sent. dsf 16:22 Thyroid Stimulating Hormone Sent. dsf 16:23 Patient visited by Ani Ordoñez PCA. ct3 17:38 Attending Physician role handed off by Junie Mccall MD cs11 17:38 Jorge Luis Bartlett DO is Attending Physician. cs11 17:51 Patient visited by Shanel Vidal RN. dsf 18:22 No IV's were initiated during this patient's visit. No procedures done that require dsf assistance. 18:23 The patient / caregiver is instructed regarding the plan of care and ED course. dsf Administered Medications: 18:20 Drug: Acetaminophen 650 mg [acetaminophen 325 mg tablet (2 tabs)] Route: PO; dsf Order Results: Lab Order: Acetaminophen Level; SPEC'M 06/01/16 16:12 Test: ACETAMINOPHEN LEVEL; Value: < 2.0; Range: 10.0-30.0; Abnormal: Below low normal; Units: UG/ML; Status: F Lab Order: Basic Metabolic Profile; [facility]01[facility] 16:12 Test: GLUCOSE, FASTING; Value: 85; Range: 70-105; Units: MG/DL; Status: F Test: BLOOD UREA NITROGEN; Value: 11; Range: 7-18; Units: MG/DL; Status: F Test: CREATININE FOR GFR; Value: 0.77; Range: 0.55-1.02; Units: MG/DL; Status: F Test: GLOMERULAR FILTRATION RATE; Value: > 60.0; Range: >51; Status: F Test: SODIUM LEVEL; Value: 144; Range: 136-145; Units: MEQ/L; Status: F Test: POTASSIUM SERUM; Value: 4.1; Range: 3.5-5.1; Units: MEQ/L; Status: F Test: CHLORIDE LEVEL; Value: 110; Range: 98-107; Abnormal: Above high normal; Units: MEQ/L; Status: F Test: CARBON DIOXIDE LEVEL; Value: 25; Range: 21-32; Units: MEQ/L; Status: F Test: ANION GAP; Value: 9; Range: 8-16; Units: MEQ/L; Status: F Test: CALCIUM LEVEL; Value: 8.3; Range: 8.5-10.1; Abnormal: Below low normal; Units: MG/DL; Status: F Test Note: ; Units are mL/min/1.73 m2 Chronic Kidney Disease Staging per NKF: Stage I & II GFR >=60 Normal to Mildly Decreased Stage III GFR 30-59 Moderately Decreased Stage IV GFR 15-29 Severely Decreased Stage V GFR <15 Very Little GFR Left ESRD GFR <15 on ZOO DIRECTOR Lab Order: Complete Blood Count; [facility]06/01/16 16:12 Test: WHITE BLOOD COUNT; Value: 4.9; Range: 4.0-10.0; Units: K/mm3; Status: F Test: RED BLOOD COUNT; Value: 4.61; Range: 4.00-5.40; Units: M/mm3; Status: F Test: HEMOGLOBIN; Value: 14.0; Range: 12.0-16.0; Units: g/dl; Status: F Test: HEMATOCRIT; Value: 39.9; Range: 36.0-47.0; Units: %; Status: F Test: MEAN CORPUSCULAR VOLUME; Value: 86.6; Range: 80.0-96.0; Units: fl; Status: F Test: MEAN CORPUSCULAR HEMOGLOBIN; Value: 30.4; Range: 27.0-33.0; Units: pg; Status: F Test: MEAN CORPUSCULAR HGB CONC; Value: 35.1; Range: 32.0-36.5; Units: g/dl; Status: F Test: RED CELL DISTRIBUTION WIDTH; Value: 13.1; Range: 11.5-14.5; Units: %; Status: F Test: PLATELET COUNT, AUTOMATED; Value: 231; Range: 150-450; Units: k/mm3; Status: F Lab Order: Ethyl Alcohol (ethanol); [facility] 06/01/16 16:12 Test: ETHYL ALCOHOL (ETHANOL); Value: < 0.003; Range: 0.000-0.010; Units: %; Status: F Lab Order: Liver Profile; [facility] 06/01/16 16:12 Test: AST/SGOT; Value: 34; Range: 15-37; Units: U/L; Status: F Test: ALT/SGPT; Value: 50; Range: 12-78; Units: U/L; Status: F Test: ALKALINE PHOSPHATASE; Value: 147; Range: 45-117; Abnormal: Above high normal; Units: U/L; Status: F Test: BILIRUBIN,TOTAL; Value: 0.3; Range: 0.2-1.0; Units: MG/DL; Status: F Test: BILIRUBIN,DIRECT; Value: < 0.1; Range: 0.0-0.2; Units: MG/DL; Status: F Test: TOTAL PROTEIN; Value: 7.0; Range: 6.4-8.2; Units: GM/DL; Status: F Test: ALBUMIN; Value: 3.6; Range: 3.2-5.2; Units: GM/DL; Status: F Test: ALBUMIN/GLOBULIN RATIO; Value: 1.06; Range: 1.00-1.93; Status: F Lab Order: Salicylate Level; [facility] 06/01/16 16:12 Test: SALICYLATE LEVEL; Value: < 1.7; Range: 5.0-30.0; Abnormal: Below low normal; Units: MG/DL; Status: F Lab Order: Thyroid Stimulating Hormone; SPEC'M 06/01/16 16:12 Test: THYROID STIMULATING HORMONE; Value: 2.150; Range: 0.358-3.740; Units: uIU/ML; Status: F Outcome: 18:05 Discharge ordered by Provider. cs11 18:22 Discharge Assessment: Patient awake, alert and oriented x 3. No cognitive and/or dsf functional deficits noted. Patient verbalized understanding of disposition instructions. patient administered narcotics - no. The following High Risk Discharge criteria are identified: None. Discharged to home ambulatory. Condition: stable. Discharge instructions given to patient, Instructed on discharge instructions, follow up and referral plans. Demonstrated understanding of instructions, Pt was receptive of discharge instructions/ teaching. No special radiology studies were completed. 18:23 Patient left the ED. dsf Signatures: Junie Mccall MD MD sd1 Kim Thomason, Professional Fee Coder Unit lbd Ani Ordoñez, DEMETRIUS MISSILE INSPECTOR ct3 Shanel Vidal,ALEXEY RN dsf Justin Amaya dpm, Craig, DO DO cs11 DORIAN
[2016-06-02] MEDS ORDERED: GASTROGRAFIN SOLUTION 30ML (Q9963) As Ordered ONE (09:19)
--- NOTE | 2016-06-02 19:46 | ECGEPIP ---
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
--- NOTE | 2016-06-03 19:24 | EDDOCDS ---
Physician Documentation [facility] Name: Candice Malcolm Age: 50 yrs Sex: Female : 1965 Arrival Date: 06/01/2016 Time: 15:16 Bed 13 Private MD: Disposition: 06/01/16 18:05 Discharged to Home/Self Care. Impression: Patient's noncompliance with medical treatment and regimen. - Condition is Stable. - Medication Reconciliation, Local Pharmacy Hours form. - Follow up: Private Physician; When: Call to arrange an appointment; Reason: Recheck today's complaints. - Problem is an ongoing problem. - Symptoms have improved. Historical: - Allergies: Aspirin; Erythromycin; PENICILLINS; SULFA (SULFONAMIDES); - Home Meds: 1. atenolol 25 mg Oral tab 1 tab once daily (Last dose: 06/01/2016 08:00) 2. Ativan 1 mg Oral tab 1 tab qid (Last dose: 06/01/2016 08:00) 3. Clozaril 325 oral once daily pt reports taking 650 mg this am (Last dose: 06/01/2016 08:00) 4. Paxil 40 mg Oral tab 1 tab once daily (Last dose: 05/31/2016) 5. Requip 4 mg Oral tab 1 tab daily (Last dose: 05/31/2016) 6. Synthroid 100 mcg Oral tab 1 tab once daily (Last dose: 06/01/2016 08:00) 7. Anafranil 50 mg oral cap 4 caps nightly (Last dose: 05/31/2016) - PMHx: Anxiety; Asthma; Depression; Hernia; Hypothyroidism; restless leg syndrome; tachycardia; - PSHx: D & C; Uterine Ablation; Tubal ligation; Oophorectomy- bilateral; - Social history: Smoking status: Patient states was never smoker of tobacco. No barriers to communication noted, The patient speaks fluent [place]egalese, Speaks appropriately for age. - Family history: Not pertinent. - : The pt / caregiver states he / she is not on anticoagulants. Home medication list is obtained from the patient. - Exposure Risk Screening:: None identified. 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 6 in. 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 sd1 16:08 ECG WITH READING ER PHYS+CARDIAG ordered. EDMS 16:08 Consult PFS/PSA/Evaporator Supervisor ordered. sd1 16:08 Consult PFS/PSA/Evaporator Supervisor: Patient's case requires discussion with on-call ak1 Psychiatrist ordered. 16:08 PSA/PFS to call Nursing Pitch Gatherer, to enter patient data on [place] Safe Act if patient sd1 involuntarily admitted or transferred for SI or HI ordered. 16:08 Confirm accurate psychiatric medication list and times of last dosage ordered. sd1 16:08 Detain Pt Until Medically/PFS Cleared ordered. sd1 16:09 Acetaminophen Level Ordered. EDMS 16:09 Basic Metabolic Profile Ordered. EDMS 16:09 Complete Blood Count Ordered. EDMS 16:09 Drug Eval Toxicology ED Only Ordered. EDMS 16:09 Ethyl Alcohol (ethanol) Ordered. EDMS 16:09 Liver Profile Ordered. EDMS 16:09 Salicylate Level Ordered. EDMS 16:09 Thyroid Stimulating Hormone Ordered. EDMS 16:22 Consult PFS/PSA/Evaporator Supervisor complete. dsf 16:22 Consult PFS/PSA/Evaporator Supervisor: Patient's case requires discussion with on-call [facility] Psychiatrist complete. 16:22 PSA/PFS to call Nursing Pitch Gatherer, to enter patient data on [place] Safe [place] if patient dsf involuntarily admitted or transferred for SI or HI complete. 17:54 Acetaminophen Level Reviewed. cs11 17:54 Basic Metabolic Profile Reviewed. cs11 17:54 Liver Profile Reviewed. cs11 17:54 Salicylate Level Reviewed. cs11 17:54 Complete Blood Count Reviewed. cs11 17:54 Ethyl Alcohol (ethanol) Reviewed. cs11 17:54 Thyroid Stimulating Hormone Reviewed. cs11 17:55 Acetaminophen Tablet 650 mg PO once ordered. cs11 06/02 11:58 T-Sheet-- Draft Copy was scanned into [employer] and attached to record. gb 11:58 ECG/EKG was scanned into [employer] and attached to record. gb Administered Medications: 06/01 18:20 Drug: Acetaminophen 650 mg [acetaminophen 325 mg tablet (2 tabs)] Route: PO; dsf Signatures: Dispatcher [employer] EDMS Junie Mccall MD MD sd1 Radha Kelley, Reg Reg Shanel Mars,RN RN dsf Jorge Luis Bartlett, DO cs11 The chart was reviewed and I authenticate all verbal orders and agree with the evaluation and treatment provided.Attachments: 06/02 11:58 T-Sheet-- Draft Copy gb 11:58 ECG/EKG gb Chart Complete MTDD
--- NOTE | 2016-06-03 19:24 | EDDOCDS ---
Nurse's Notes [facility] Name: Cristo Olson Age: 50 yrs Sex: Female : 1965 Arrival Date: 06/01/2016 Time: 15:16 Bed 13 Private MD: Diagnosis: Patient's noncompliance with medical treatment and regimen Presentation: 06/01 15:19 Presenting complaint: Patient states: brought in by police and EMS. Pt states she has dsf been out of her clazaril for 2 nights and her doctor in [place] told her to take 2 doses. Pt states her doctor has had her do that in the past . Pt denies SI or HI. Suicide/Homicide risk assessment- the patient denies having any suicidal and/or homicidal ideations and does not present with any other emotional, behavioral or mental health complaints. 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 Transition of care: patient was not received from another setting of care. 15:19 Acuity: JAVED Level 3 dsf 15:19 Method Of Arrival: Ambulance dsf 15:19 Adult Sepsis Screening: The patient does not have new or worsening altered mentation. dsf Patient's respiratory rate is less than 22. Systolic blood pressure is greater than 100. Patient has a qSOFA score of 0- Negative Sepsis Screen. Triage Assessment: 15:23 General: Appears in no apparent distress, Behavior is appropriate for age, cooperative. dsf Pain: Location: head Pain currently is 5 out of 10 on a pain scale. Quality of pain is described as aching. HIV screening NA for this visit Offered previously. Neurological: Level of Consciousness is awake, alert. Cardiovascular: No deficits noted. Respiratory: No deficits noted. Derm: Skin is pink, warm & dry. 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 atenolol 25 mg Oral tab 1 tab once daily (Last dose: 06/01/2016 08:00) 2. Ativan 1 mg Oral tab 1 tab qid (Last dose: 06/01/2016 08:00) 3. Clozaril 325 oral once daily pt reports taking 650 mg this am (Last dose: 06/01/2016 08:00) 4. Paxil 40 mg Oral tab 1 tab once daily (Last dose: 05/31/2016) 5. Requip 4 mg Oral tab 1 tab daily (Last dose: 05/31/2016) 6. Synthroid 100 mcg Oral tab 1 tab once daily (Last dose: 06/01/2016 08:00) 7. Anafranil 50 mg oral cap 4 caps nightly (Last dose: 05/31/2016) - PMHx: Anxiety; Asthma; Depression; Hernia; Hypothyroidism; restless leg syndrome; tachycardia; - PSHx: D & C; Uterine Ablation; Tubal ligation; Oophorectomy- bilateral; - Social history: Smoking status: Patient states was never smoker of tobacco. No barriers to communication noted, The patient speaks fluent Y[place], Speaks appropriately for age. - Family history: Not pertinent. - : The pt / caregiver states he / she is not on anticoagulants. Home medication list is obtained from the patient. - Exposure Risk Screening:: None identified. Screenin:22 Screening information is obtained from the patient. Fall risk: No risks identified. dsf Assistance ADL's: requires no assistance with activities of daily living. Abuse/DV Screen: The patient / caregiver reports he/she is: not in a situation that causes fear, pain or injury. Nutritional screening: No deficits noted. Advance Directives: Currently, there is no health care proxy. home support is adequate. Assessment: 15:23 Adult Sepsis Screening: The patient does not have new or worsening altered mentation. dsf Patient's respiratory rate is less than 22. Systolic blood pressure is greater than 100. Patient has a qSOFA score of 0- Negative Sepsis Screen. General: see triage nursing assessment . 16:23 General: Appears in no apparent distress, comfortable, Behavior is appropriate for age, dsf cooperative, Smells of cat urine . Pain: Denies pain. Neurological: Level of Consciousness is awake, alert, Oriented to person, place, time. Cardiovascular: Capillary refill < 3 seconds Heart tones S1 S2 present. Respiratory: Airway is patent Respiratory effort is even, unlabored, Respiratory pattern is regular, symmetrical, Breath sounds are clear bilaterally. GI: Abdomen is non- distended Bowel sounds present X 4 quads. Abd is soft and non tender X 4 quads. Derm: Skin is pink, warm & dry. 17:13 General: purse, cellphone and ativan medication pill bottle given to daughter to take dsf home . 17:16 General: Appears in no apparent distress, Behavior is appropriate for age, cooperative. dsf Neurological: Level of Consciousness is awake, alert. Cardiovascular: Capillary refill < 3 seconds. Respiratory: Airway is patent Respiratory effort is even, unlabored, Respiratory pattern is regular, symmetrical. Derm: Skin is pink, warm & dry. 17:50 General: Appears in no apparent distress, Behavior is appropriate for age, cooperative. dsf Neurological: Level of Consciousness is awake, alert. Cardiovascular: Capillary refill < 3 seconds. Respiratory: Airway is patent Respiratory effort is even, unlabored, Respiratory pattern is regular, symmetrical. Derm: Skin is pink, warm & dry. 18:21 Adult Sepsis Screening: The patient does not have new or worsening altered mentation. dsf Patient's respiratory rate is less than 22. Systolic blood pressure is greater than 100. Patient has a qSOFA score of 0- Negative Sepsis Screen. General: Appears in no apparent distress, Behavior is appropriate for age, cooperative. Pain: Location: head Pain currently is 5 out of 10 on a pain scale. Neurological: Level of Consciousness is awake, alert. Cardiovascular: No deficits noted. Respiratory: No deficits noted. Derm: Skin is pink, warm & dry. Social Work Consult: 20:47 Social Work Note: PT left AMA earlier, returned via city police. Pt was originally seen ac as overdose, left and had to be returned. Pt states she forgot to take her medications two days ago, so took double today. After taking her meds she began to feel "funny" so her daughter called for an ambulance. Pt denies SI/HI. Pt is well known to this senior writer from previous contacts. Daughter states she has no concerns for pt's safety at this time. Pt advised to f/u with her psychiatrist, Dr. Wolf in [place]. No further intervention required. Vital Signs: 15:23 BP 152 / 78; Pulse 91; Resp 20; Pulse Ox 98% on R/A; Weight 99.79 kg (R); Height 5 ft. dsf 6 in. (167.64 cm); Pain 5/10; 15:25 BP 152 / 78 (auto/); dsf 16:20 BP 166 / 87 (auto/); dsf 16:21 Pulse 92 MON; Pulse Ox 95% ; dsf 16:35 BP 164 / 96 (auto/); dsf 16:35 Pulse 90 MON; Pulse Ox 97% ; dsf 16:50 BP 168 / 117 (auto/); dsf 16:50 Pulse 88 MON; Pulse Ox 97% ; dsf 16:51 Pulse 88 MON; Pulse Ox 97% ; dsf 17:05 BP 134 / 66 (auto/); dsf 17:05 Pulse 82 MON; Pulse Ox 96% ; dsf 18:05 BP 137 / 65; Pulse 81; Resp 20; Temp 98.2(TE); Pulse Ox 98% on R/A; Pain 5/10; dsf 15:23 Body Mass Index 35.51 (99.79 kg, 167.64 cm) dsf Vitals: 15:23 Log In Time N/A - ambulance arrival. dsf ED Course: 15:17 Patient visited by Kim Thomason, Patient Registration Clerk. lbd 15:17 Patient moved to Waiting lbd 15:17 Patient moved to 13 lbd 15:20 Triage Initiated dsf 15:48 Patient visited by Shanel Vidal RN. dsf 15:59 Junie Mccall MD is Attending Physician. sd1 15:59 Patient visited by Junie Mccall MD. sd1 16:01 Property removed, inventory done, secured in secure belongings bag, Secure bag Number dpm [id number], placed in ED safe. 16:21 Accompanied by Family Member, Patient has correct armband on for positive ct3 identification. Placed in psych safe attire. Bed in low position. Call light in reach. Side rails up X 1. lunchroom monitor on. Pulse ox on. NIBP on. 16:21 EKG done. (by ED staff). Reviewed by Junie Mccall MD. ct3 16:22 Acetaminophen Level Sent. dsf 16:22 Basic Metabolic Profile Sent. dsf 16:22 Complete Blood Count Sent. dsf 16:22 Ethyl Alcohol (ethanol) Sent. dsf 16:22 Liver Profile Sent. dsf 16:22 Salicylate Level Sent. dsf 16:22 Thyroid Stimulating Hormone Sent. dsf 16:23 Patient visited by Ani Ordoñez PCA. ct3 17:38 Attending Physician role handed off by Junie Mccall MD cs11 17:38 Jorge Luis aBrtlett DO is Attending Physician. cs11 17:51 Patient visited by Shanel Vidal RN. dsf 18:22 No IV's were initiated during this patient's visit. No procedures done that require dsf assistance. 18:23 The patient / caregiver is instructed regarding the plan of care and ED course. dsf 06/02 11:58 T-Sheet-- Draft Copy was scanned into [employer] and attached to record. gb 11:58 ECG/EKG was scanned into [employer] and attached to record. gb 20:05 EKG-ADULT Returned. EDMS Administered Medications: 06/01 18:20 Drug: Acetaminophen 650 mg [acetaminophen 325 mg tablet (2 tabs)] Route: PO; dsf Order Results: Lab Order: Acetaminophen Level; SPEC'M 06/01/16 16:12 Test: ACETAMINOPHEN LEVEL; Value: < 2.0; Range: 10.0-30.0; Abnormal: Below low normal; Units: UG/ML; Status: F Lab Order: Basic Metabolic Profile; SPEC'M 06/01/16 16:12 Test: GLUCOSE, FASTING; Value: 85; Range: 70-105; Units: MG/DL; Status: F Test: BLOOD UREA NITROGEN; Value: 11; Range: 7-18; Units: MG/DL; Status: F Test: CREATININE FOR GFR; Value: 0.77; Range: 0.55-1.02; Units: MG/DL; Status: F Test: GLOMERULAR FILTRATION RATE; Value: > 60.0; Range: >51; Status: F Test: SODIUM LEVEL; Value: 144; Range: 136-145; Units: MEQ/L; Status: F Test: POTASSIUM SERUM; Value: 4.1; Range: 3.5-5.1; Units: MEQ/L; Status: F Test: CHLORIDE LEVEL; Value: 110; Range: 98-107; Abnormal: Above high normal; Units: MEQ/L; Status: F Test: CARBON DIOXIDE LEVEL; Value: 25; Range: 21-32; Units: MEQ/L; Status: F Test: ANION GAP; Value: 9; Range: 8-16; Units: MEQ/L; Status: F Test: CALCIUM LEVEL; Value: 8.3; Range: 8.5-10.1; Abnormal: Below low normal; Units: MG/DL; Status: F Test Note: ; Units are mL/min/1.73 m2 Chronic Kidney Disease Staging per NKF: Stage I & II GFR >=60 Normal to Mildly Decreased Stage III GFR 30-59 Moderately Decreased Stage IV GFR 15-29 Severely Decreased Stage V GFR <15 Very Little GFR Left ESRD GFR <15 on HAND CLOTH EXAMINER Lab Order: Complete Blood Count; [facility]06/01/16 16:12 Test: WHITE BLOOD COUNT; Value: 4.9; Range: 4.0-10.0; Units: K/mm3; Status: F Test: RED BLOOD COUNT; Value: 4.61; Range: 4.00-5.40; Units: M/mm3; Status: F Test: HEMOGLOBIN; Value: 14.0; Range: 12.0-16.0; Units: g/dl; Status: F Test: HEMATOCRIT; Value: 39.9; Range: 36.0-47.0; Units: %; Status: F Test: MEAN CORPUSCULAR VOLUME; Value: 86.6; Range: 80.0-96.0; Units: fl; Status: F Test: MEAN CORPUSCULAR HEMOGLOBIN; Value: 30.4; Range: 27.0-33.0; Units: pg; Status: F Test: MEAN CORPUSCULAR HGB CONC; Value: 35.1; Range: 32.0-36.5; Units: g/dl; Status: F Test: RED CELL DISTRIBUTION WIDTH; Value: 13.1; Range: 11.5-14.5; Units: %; Status: F Test: PLATELET COUNT, AUTOMATED; Value: 231; Range: 150-450; Units: k/mm3; Status: F Lab Order: Ethyl Alcohol (ethanol); 06/01/16 16:12 Test: ETHYL ALCOHOL (ETHANOL); Value: < 0.003; Range: 0.000-0.010; Units: %; Status: F Lab Order: Liver Profile; 06/01/16 16:12 Test: AST/SGOT; Value: 34; Range: 15-37; Units: U/L; Status: F Test: ALT/SGPT; Value: 50; Range: 12-78; Units: U/L; Status: F Test: ALKALINE PHOSPHATASE; Value: 147; Range: 45-117; Abnormal: Above high normal; Units: U/L; Status: F Test: BILIRUBIN,TOTAL; Value: 0.3; Range: 0.2-1.0; Units: MG/DL; Status: F Test: BILIRUBIN,DIRECT; Value: < 0.1; Range: 0.0-0.2; Units: MG/DL; Status: F Test: TOTAL PROTEIN; Value: 7.0; Range: 6.4-8.2; Units: GM/DL; Status: F Test: ALBUMIN; Value: 3.6; Range: 3.2-5.2; Units: GM/DL; Status: F Test: ALBUMIN/GLOBULIN RATIO; Value: 1.06; Range: 1.00-1.93; Status: F Lab Order: Salicylate Level; SPEC'M 06/01/16 16:12 Test: SALICYLATE LEVEL; Value: < 1.7; Range: 5.0-30.0; Abnormal: Below low normal; Units: MG/DL; Status: F Lab Order: Thyroid Stimulating Hormone; SPEC'M 06/01/16 16:12 Test: THYROID STIMULATING HORMONE; Value: 2.150; Range: 0.358-3.740; Units: uIU/ML; Status: F Radiology Order: EKG-ADULT Test: EKG-ADULT REASON FOR EXAMINATION: OD; Stationary ECG Study; [facility] - ED; ; Test Date: 2016-06-01; Pat Name: CRISTO OLSON Department:; Room: -; Gender: F Director Of Patient Financial Services: ct; : 1965 Requested By: Junie Mccall; Order Number: [id number] Reading MD: Junie Mccall; Measurements; Intervals [place]; Rate: 94 P: 42; MD: 149 QRS: -23; QRSD: 120 T: 18; QT: 405; QTc: 507; Interpretive Statements; SINUS RHYTHM; POSSIBLE LEFT ATRIAL ENLARGEMENT; BORDERLINE LEFT AXIS DEVIATION; POSSIBLE RIGHT VENTRICULAR CONDUCTION DELAY; INCREASED RATE 07/01/15; Electronically Signed On 06-02-2016 19:46:25 EST by Junie Mccall; Outcome: 18:05 Discharge ordered by Provider. cs11 18:22 Discharge Assessment: Patient awake, alert and oriented x 3. No cognitive and/or dsf functional deficits noted. Patient verbalized understanding of disposition instructions. patient administered narcotics - no. The following High Risk Discharge criteria are identified: None. Discharged to home ambulatory. Condition: stable. Discharge instructions given to patient, Instructed on discharge instructions, follow up and referral plans. Demonstrated understanding of instructions, Pt was receptive of discharge instructions/ teaching. No special radiology studies were completed. 18:23 Patient left the ED. dsf Signatures: Dispatcher [employer] EDMS Junie Mccall MD MD sd1 Kim Thomason, Patient Registration Clerk Unit lbd Derrick Izquierdo, ADRYAN PSA ac Radha Kelley, Reg Reg gb Ani Ordoñez, SENIOR MARKET RESEARCH ANALYST SENIOR MARKET RESEARCH ANALYST ct3 Shanel Vidal,ALEXEY RN dsf Justin Amaya dpm, Craig, DO cs11 Chart Complete DORIAN
--- NOTE | 2016-06-03 19:24 | EDDOCDS ---
Physician Documentation [facility] Name: Candice Malcolm Age: 50 yrs Sex: Female : 1965 Arrival Date: 06/01/2016 Time: 15:16 Bed 13 Private MD: Disposition: 06/01/16 18:05 Discharged to Home/Self Care. Impression: Patient's noncompliance with medical treatment and regimen. - Condition is Stable. - Medication Reconciliation, Local Pharmacy Hours form. - Follow up: Private Physician; When: Call to arrange an appointment; Reason: Recheck today's complaints. - Problem is an ongoing problem. - Symptoms have improved. Historical: - Allergies: Aspirin; Erythromycin; PENICILLINS; SULFA (SULFONAMIDES); - Home Meds: 1. atenolol 25 mg Oral tab 1 tab once daily (Last dose: 06/01/2016 08:00) 2. Ativan 1 mg Oral tab 1 tab qid (Last dose: 06/01/2016 08:00) 3. Clozaril 325 oral once daily pt reports taking 650 mg this am (Last dose: 06/01/2016 08:00) 4. Paxil 40 mg Oral tab 1 tab once daily (Last dose: 05/31/2016) 5. Requip 4 mg Oral tab 1 tab daily (Last dose: 05/31/2016) 6. Synthroid 100 mcg Oral tab 1 tab once daily (Last dose: 06/01/2016 08:00) 7. Anafranil 50 mg oral cap 4 caps nightly (Last dose: 05/31/2016) - PMHx: Anxiety; Asthma; Depression; Hernia; Hypothyroidism; restless leg syndrome; tachycardia; - PSHx: D & C; Uterine Ablation; Tubal ligation; Oophorectomy- bilateral; - Social history: Smoking status: Patient states was never smoker of tobacco. No barriers to communication noted, The patient speaks fluent [place], Speaks appropriately for age. - Family history: Not pertinent. - : The pt / caregiver states he / she is not on anticoagulants. Home medication list is obtained from the patient. - Exposure Risk Screening:: None identified. 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 6 in. (167.64 cm); Pain 5/10; 15:25 BP 152 / 78 (auto/); dsf 16:20 BP 166 / 87 (auto/); dsf 16:21 Pulse 92 MON; Pulse Ox 95% ; dsf 16:35 BP 164 / 96 (auto/); dsf 16:35 Pulse 90 MON; Pulse Ox 97% ; dsf 16:50 BP 168 / 117 (auto/); dsf 16:50 Pulse 88 MON; Pulse Ox 97% ; dsf 16:51 Pulse 88 MON; Pulse Ox 97% ; dsf 17:05 BP 134 / 66 (auto/); dsf 17:05 Pulse 82 MON; Pulse Ox 96% ; dsf 18:05 BP 137 / 65; Pulse 81; Resp 20; Temp 98.2(TE); Pulse Ox 98% on R/A; Pain 5/10; dsf 15:23 Body Mass Index 35.51 (99.79 kg, 167.64 cm) dsf MDM: 16:07 Bodily Injury Adjuster/Pulse Ox/q 15 min VS ordered. sd1 16:08 ECG WITH READING ER PHYS+CARDIAG ordered. EDMS 16:08 Consult PFS/PSA/Stress Test Technician ordered. sd1 16:08 Consult PFS/PSA/Stress Test Technician: Patient's case requires discussion with on-call ma1 Psychiatrist ordered. 16:08 PSA/PFS to call Nursing Correctional Counselor/Case Manager, to enter patient data on [place] Safe [place] if patient sd1 involuntarily admitted or transferred for SI or HI ordered. 16:08 Confirm accurate psychiatric medication list and times of last dosage ordered. sd1 16:08 Detain Pt Until Medically/PFS Cleared ordered. sd1 16:09 Acetaminophen Level Ordered. EDMS 16:09 Basic Metabolic Profile Ordered. EDMS 16:09 Complete Blood Count Ordered. EDMS 16:09 Drug Eval Toxicology ED Only Ordered. EDMS 16:09 Ethyl Alcohol (ethanol) Ordered. EDMS 16:09 Liver Profile Ordered. EDMS 16:09 Salicylate Level Ordered. EDMS 16:09 Thyroid Stimulating Hormone Ordered. EDMS 16:22 Consult PFS/PSA/Stress Test Technician complete. dsf 16:22 Consult PFS/PSA/Stress Test Technician: Patient's case requires discussion with on-call [facility] Psychiatrist complete. 16:22 PSA/PFS to call Nursing Correctional Counselor/Case Manager, to enter patient data [place] Safe [place] if patient dsf involuntarily admitted or transferred for SI or HI complete. 17:54 Acetaminophen Level Reviewed. cs11 17:54 Basic Metabolic Profile Reviewed. cs11 17:54 Liver Profile Reviewed. cs11 17:54 Salicylate Level Reviewed. cs11 17:54 Complete Blood Count Reviewed. cs11 17:54 Ethyl Alcohol (ethanol) Reviewed. cs11 17:54 Thyroid Stimulating Hormone Reviewed. cs11 17:55 Acetaminophen Tablet 650 mg PO once ordered. cs11 06/02 11:58 T-Sheet-- Draft Copy was scanned into [employer] and attached to record. gb 11:58 ECG/EKG was scanned into [employer] and attached to record. gb Administered Medications: 06/01 18:20 Drug: Acetaminophen 650 mg [acetaminophen 325 mg tablet (2 tabs)] Route: PO; dsf Signatures: Dispatcher [employer] EDMS Junie Mccall MD MD sd1 Radha Kelley, Reg Reg Shanel Mars,RN RN dsf Jorge Luis Bartlett, DO cs11 The chart was reviewed and I authenticate all verbal orders and agree with the evaluation and treatment provided.Attachments: 06/02 11:58 T-Sheet-- Draft Copy gb 11:58 ECG/EKG gb Chart Complete MTDD
== END 2016-06-01 18:23 | disposition home or self-care (01) ==
LOC: M ED 15:16
DX: Z91.19 Patient's noncompliance with other medical treatment and regimen (principal); J45.909 Unspecified asthma, uncomplicated; F41.9 Anxiety disorder, unspecified; F32.9 Major depressive disorder, single episode, unspecified; K46.9 Unspecified abdominal hernia without obstruction or gangrene; E03.9 Hypothyroidism, unspecified; G25.81 Restless legs syndrome; R00.0 Tachycardia, unspecified; Z79.899 Other long term (current) drug therapy; Z88.6 Allergy status to analgesic agent; Z88.1 Allergy status to other antibiotic agents; Z88.2 Allergy status to sulfonamides; Z88.0 Allergy status to penicillin
CPT/HCPCS: 80048; 80076; 84443; 85027; 93005; 93041; 99284; G0480; Q9963

== ENCOUNTER → 2016-09-01 | Outpatient (CLI) | payer OTHER, MEDICARE ==
--- NOTE | 2016-09-01 20:14 | REPMRS ---
Patient History The patient states she had a clinical breast exam in 07/2016. Family history of pancreatic cancer in maternal aunt, breast cancer in maternal aunt at age 50 or over, colorectal cancer in maternal aunt, breast cancer in 2 maternal cousins, and breast cancer in paternal cousin at age 50 or over. Digital Woman Screen Mammo: September 01, 2016 - Exam #: [id number] Bilateral CC and MLO view(s) were taken. Technologist: Karina Wright, Technologist Prior study comparison: October 03, 2013, bilateral bilat screen digital mammo, performed at [facility] ([facility]). October 13, 2011, bilateral bilat screen digital mammo, performed at [facility] ([facility]). October 09, 2010, bilateral screening mammogram, performed at [facility] ([facility]). FINDINGS: There are scattered fibroglandular densities. There has been no change in the appearance of the mammogram from the prior studies. There is a mild amount of scattered fibroglandular density which is fairly symmetric. There is no interval development of dominant mass, architectural distortion, or clustered microcalcification suggestive of malignancy. ASSESSMENT: BI-RADS/ACR category 1 mammogram. Negative. Recommendation Routine screening mammogram in 1 year (for women over age 40). This mammogram was interpreted with the aid of an FDA-approved computer-aided dectection system. Electronically Signed By: Filippo Clark MD 09/01/162012
== END ==
LOC: M WHC 13:01
PROVIDERS: ATTEND Obstetrics & Gynecology Female Pelvic Medicine and Reconstructive Surgery
DX: Z12.31 Encounter for screening mammogram for malignant neoplasm of breast (principal)

== ENCOUNTER → 2016-09-01 | Outpatient (CLI) | payer OTHER, MEDICARE ==
[2016-09-01 14:48] LABS: BASO % 0.1 % (0.0-1.0); EOS % 0.4 % (0.0-3.0); LARGE UNSTAINED CELL # 0.1 K/mm3 (0.0-0.4); LARGE UNSTAINED CELL % 1.3 % (0.0-4.0); LYMPH # 1.2 K/mm3 (1.5-4.5); LYMPH % 23.3 % (24.0-44.0); MEAN CORPUSCULAR HGB CONC 34.9 g/dl (32.0-36.5); MEAN CORPUSCULAR VOLUME 88.8 fl (80.0-96.0); MONO # 0.2 K/mm3 (0.0-0.8); MONO % 4.8 % (0.0-5.0); NEUTROPHILS # 3.5 K/mm3 (1.8-7.7); NEUTROPHILS % 70.1 % (36.0-66.0); PLATELET COUNT, AUTOMATED 227 k/mm3 (150-450); RED CELL DISTRIBUTION WIDTH 13.4 % (11.5-14.5)
== END ==
LOC: M LAB 14:05
PROVIDERS: ATTEND Acupuncturist
DX: Z79.899 Other long term (current) drug therapy (principal)

== ENCOUNTER → 2016-10-13 | Outpatient (CLI) | payer OTHER, MEDICARE ==
[2016-10-13 15:00] LABS: EOS % 0.3 % (0.0-3.0); LARGE UNSTAINED CELL # 0.1 K/mm3 (0.0-0.4); LARGE UNSTAINED CELL % 1.2 % (0.0-4.0); LYMPH % 22.3 % (24.0-44.0); MEAN CORPUSCULAR HEMOGLOBIN 31.8 pg (27.0-33.0); MEAN CORPUSCULAR HGB CONC 34.6 g/dl (32.0-36.5); MEAN CORPUSCULAR VOLUME 91.9 fl (80.0-96.0); MONO # 0.2 K/mm3 (0.0-0.8); MONO % 5.4 % (0.0-5.0); NEUTROPHILS % 70.8 % (36.0-66.0); PLATELET COUNT, AUTOMATED 215 k/mm3 (150-450); RED CELL DISTRIBUTION WIDTH 14.1 % (11.5-14.5); WHITE BLOOD COUNT 4.3 K/mm3 (4.0-10.0)
== END ==
LOC: M LAB 13:30
PROVIDERS: ATTEND Acupuncturist
DX: Z79.899 Other long term (current) drug therapy (principal)

== ENCOUNTER → 2016-11-13 | Outpatient (CLI) | payer OTHER, MEDICARE ==
[2016-11-13 11:28] LABS: BASO % 0.2 % (0.0-1.0); EOS % 0.7 % (0.0-3.0); LARGE UNSTAINED CELL # 0.1 K/mm3 (0.0-0.4); LARGE UNSTAINED CELL % 2.1 % (0.0-4.0); LYMPH # 1.4 K/mm3 (1.5-4.5); LYMPH % 28.7 % (24.0-44.0); MEAN CORPUSCULAR HEMOGLOBIN 31.9 pg (27.0-33.0); MEAN CORPUSCULAR HGB CONC 34.8 g/dl (32.0-36.5); MEAN CORPUSCULAR VOLUME 91.6 fl (80.0-96.0); MONO # 0.2 K/mm3 (0.0-0.8); MONO % 4.1 % (0.0-5.0); NEUTROPHILS # 2.9 K/mm3 (1.8-7.7); NEUTROPHILS % 64.1 % (36.0-66.0); PLATELET COUNT, AUTOMATED 255 k/mm3 (150-450); RED CELL DISTRIBUTION WIDTH 13.5 % (11.5-14.5); WHITE BLOOD COUNT 4.6 K/mm3 (4.0-10.0)
== END ==
LOC: M LAB 11:02
PROVIDERS: ATTEND Nurse Practitioner Psychiatric/Mental Health
DX: Z79.899 Other long term (current) drug therapy (principal)

== ENCOUNTER → 2017-02-21 | Outpatient (CLI) | payer OTHER, MEDICARE ==
[2017-02-21 10:53] LABS: MEAN CORPUSCULAR HEMOGLOBIN 31.7 pg (27.0-33.0); MEAN CORPUSCULAR HGB CONC 34.1 g/dl (32.0-36.5); PLATELET COUNT, AUTOMATED 224 10^3/uL (150-450); RED CELL DISTRIBUTION WIDTH 13.2 % (11.5-14.5)
[2017-02-21 10:56] LABS: ADD MANUAL DIFFER YES; DIFF SLIDE NUMBER 123
[2017-02-21 11:36] LABS: ANISOCYTOSIS 1+
== END ==
LOC: M LAB 08:34
PROVIDERS: ATTEND Nurse Practitioner Psychiatric/Mental Health
DX: Z79.899 Other long term (current) drug therapy (principal)

== ENCOUNTER → 2017-03-03 | Outpatient (CLI) | payer OTHER, MEDICARE ==
[2017-03-09 08:09] LABS: CLOMIPRAMINE 203 ng/mL (70-200); NORCLOMIPRAMINE 218 ng/mL (150-300); TOTAL (CLO+NORCLO) 421 ng/mL (220-500)
== END ==
LOC: M WUC 17:29
PROVIDERS: ATTEND Acupuncturist
DX: Z79.899 Other long term (current) drug therapy (principal)
CPT/HCPCS: 36415; G0480

== ENCOUNTER → 2017-04-16 | Outpatient (CLI) | payer OTHER, MEDICARE ==
[2017-04-16 13:13] LABS: ALBUMIN 3.6 GM/DL (3.2-5.2); ALBUMIN/GLOBULIN RATIO 1.16 (1.00-1.93); ALKALINE PHOSPHATASE 122 U/L (45-117); ALT/SGPT 34 U/L (12-78); ANION GAP 8 MEQ/L (8-16); AST/SGOT 16 U/L (7-37); BILIRUBIN,TOTAL 0.3 MG/DL (0.2-1.0); BLOOD UREA NITROGEN 10 MG/DL (7-18); CALCIUM LEVEL 8.6 MG/DL (8.5-10.1); CARBON DIOXIDE LEVEL 27 MEQ/L (21-32); CHLORIDE LEVEL 106 MEQ/L (98-107); CREATININE FOR GFR 0.84 MG/DL (0.55-1.02); GLOMERULAR FILTRATION RATE > 60.0 (>51); GLUCOSE, FASTING 113 MG/DL (70-105); POTASSIUM SERUM 4.1 MEQ/L (3.5-5.1); SODIUM LEVEL 141 MEQ/L (136-145); TOTAL PROTEIN 6.7 GM/DL (6.4-8.2)
== END ==
LOC: M WUC 10:29
PROVIDERS: ATTEND Acupuncturist
DX: Z79.899 Other long term (current) drug therapy (principal)

== ENCOUNTER → 2017-04-27 | Outpatient (CLI) | payer OTHER, MEDICARE ==
[2017-04-27 19:50] LABS: BASO % 0.2 % (0.0-1.0); EOS % 0.4 % (0.0-3.0); IMMATURE GRANULOCYTE % 1.7 % (0-0); LYMPH # 1.3 10^3/uL (1.5-4.5); LYMPH % 27.3 % (24.0-44.0); MEAN CORPUSCULAR HEMOGLOBIN 31.2 pg (27.0-33.0); MEAN CORPUSCULAR HGB CONC 34.3 g/dl (32.0-36.5); MONO # 0.3 10^3/uL (0.0-0.8); MONO % 6.2 % (0.0-5.0); NEUTROPHILS % 64.2 % (36.0-66.0); PLATELET COUNT, AUTOMATED 247 10^3/uL (150-450); RED CELL DISTRIBUTION WIDTH 13.2 % (11.5-14.5); WHITE BLOOD COUNT 4.7 10^3/uL (4.0-10.0)
== END ==
LOC: M WUC 15:51
PROVIDERS: ATTEND Acupuncturist
DX: Z79.899 Other long term (current) drug therapy (principal)

== ENCOUNTER → 2017-05-27 | Outpatient (CLI) | payer OTHER, MEDICARE ==
[2017-05-27 18:03] LABS: BASO % 0.3 % (0.0-1.0); IMMATURE GRANULOCYTE # 0.1 10^3/uL (0-0); LYMPH # 1.1 10^3/uL (1.5-4.5); LYMPH % 17.7 % (24.0-44.0); MEAN CORPUSCULAR HEMOGLOBIN 31.3 pg (27.0-33.0); MEAN CORPUSCULAR HGB CONC 34.2 g/dl (32.0-36.5); MEAN CORPUSCULAR VOLUME 91.5 fl (80.0-96.0); MONO # 0.3 10^3/uL (0.0-0.8); MONO % 5.6 % (0.0-5.0); NEUTROPHILS # 4.6 10^3/uL (1.8-7.7); NEUTROPHILS % 75.4 % (36.0-66.0); PLATELET COUNT, AUTOMATED 281 10^3/uL (150-450); RED CELL DISTRIBUTION WIDTH 13.2 % (11.5-14.5); WHITE BLOOD COUNT 6.1 10^3/uL (4.0-10.0)
[2017-05-27 18:11] LABS: ALBUMIN 3.5 GM/DL (3.2-5.2); ALBUMIN/GLOBULIN RATIO 1.06 (1.00-1.93); ALKALINE PHOSPHATASE 140 U/L (45-117); ALT/SGPT 28 U/L (12-78); ANION GAP 8 MEQ/L (8-16); AST/SGOT 15 U/L (7-37); BILIRUBIN,TOTAL 0.2 MG/DL (0.2-1.0); BLOOD UREA NITROGEN 9 MG/DL (7-18); CALCIUM LEVEL 7.8 MG/DL (8.5-10.1); CARBON DIOXIDE LEVEL 26 MEQ/L (21-32); CHLORIDE LEVEL 109 MEQ/L (98-107); CREATININE FOR GFR 0.76 MG/DL (0.55-1.02); GLOMERULAR FILTRATION RATE > 60.0 (>51); GLUCOSE, FASTING 120 MG/DL (70-105); SODIUM LEVEL 143 MEQ/L (136-145); THYROXINE (T4) 7.5 UG/DL (4.5-12.0); TOTAL PROTEIN 6.8 GM/DL (6.4-8.2)
[2017-06-02 00:06] LABS: CLOMIPRAMINE 237 ng/mL (70-200); NORCLOMIPRAMINE 243 ng/mL (150-300); TOTAL (CLO+NORCLO) 480 ng/mL (220-500)
== END ==
LOC: M WUC 14:23
DX: Z51.81 Encounter for therapeutic drug level monitoring (principal); Z79.899 Other long term (current) drug therapy
CPT/HCPCS: 84443

== ENCOUNTER → 2017-06-26 | Outpatient (CLI) | payer OTHER, MEDICARE ==
[2017-06-26 17:41] LABS: BASO % 0.2 % (0.0-1.0); EOS % 0.2 % (0.0-3.0); HEMATOCRIT 39.3 % (36.0-47.0); HEMOGLOBIN 13.3 g/dl (12.0-16.0); IMMATURE GRANULOCYTE # 0.1 10^3/uL (0-0); IMMATURE GRANULOCYTE % 1.3 % (0-0); LYMPH # 1.4 10^3/uL (1.5-4.5); LYMPH % 26.2 % (24.0-44.0); MEAN CORPUSCULAR HEMOGLOBIN 30.7 pg (27.0-33.0); MEAN CORPUSCULAR HGB CONC 33.8 g/dl (32.0-36.5); MEAN CORPUSCULAR VOLUME 90.8 fl (80.0-96.0); MONO # 0.4 10^3/uL (0.0-0.8); MONO % 7.2 % (0.0-5.0); NEUTROPHILS # 3.5 10^3/uL (1.8-7.7); NEUTROPHILS % 64.9 % (36.0-66.0); PLATELET COUNT, AUTOMATED 248 10^3/uL (150-450); RED BLOOD COUNT 4.33 10^6/uL (4.00-5.40); WHITE BLOOD COUNT 5.5 10^3/uL (4.0-10.0)
== END ==
LOC: M WUC 13:46
DX: Z79.899 Other long term (current) drug therapy (principal)

== ENCOUNTER → 2017-07-27 | Outpatient (CLI) | payer OTHER, MEDICARE ==
[2017-07-27 13:51] LABS: EOS % 0.2 % (0.0-3.0); HEMATOCRIT 38.9 % (36.0-47.0); HEMOGLOBIN 13.2 g/dl (12.0-16.0); IMMATURE GRANULOCYTE % 1.2 % (0-3.0); LYMPH % 23.2 % (24.0-44.0); MEAN CORPUSCULAR HEMOGLOBIN 30.6 pg (27.0-33.0); MEAN CORPUSCULAR HGB CONC 33.9 g/dl (32.0-36.5); MEAN CORPUSCULAR VOLUME 90.3 fl (80.0-96.0); MONO # 0.3 10^3/uL (0.0-0.8); MONO % 6.2 % (0.0-5.0); NEUTROPHILS # 2.9 10^3/uL (1.8-7.7); NEUTROPHILS % 69.2 % (36.0-66.0); PLATELET COUNT, AUTOMATED 232 10^3/uL (150-450); RED BLOOD COUNT 4.31 10^6/uL (4.00-5.40); RED CELL DISTRIBUTION WIDTH 13.2 % (11.5-14.5); WHITE BLOOD COUNT 4.2 10^3/uL (4.0-10.0)
== END ==
LOC: M WUC 12:49
DX: Z51.81 Encounter for therapeutic drug level monitoring (principal); Z79.899 Other long term (current) drug therapy
CPT/HCPCS: 85025

== ENCOUNTER → 2017-08-24 | Outpatient (CLI) | payer OTHER, MEDICARE ==
[2017-08-24 16:37] LABS: BASO % 0.2 % (0.0-1.0); EOS % 0.2 % (0.0-3.0); HEMATOCRIT 42.4 % (36.0-47.0); HEMOGLOBIN 14.1 g/dl (12.0-16.0); IMMATURE GRANULOCYTE % 0.9 % (0-3.0); LYMPH # 1.2 10^3/uL (1.5-4.5); LYMPH % 21.9 % (24.0-44.0); MEAN CORPUSCULAR HEMOGLOBIN 30.5 pg (27.0-33.0); MEAN CORPUSCULAR HGB CONC 33.3 g/dl (32.0-36.5); MEAN CORPUSCULAR VOLUME 91.6 fl (80.0-96.0); MONO # 0.3 10^3/uL (0.0-0.8); MONO % 6.4 % (0.0-5.0); NEUTROPHILS # 3.7 10^3/uL (1.8-7.7); NEUTROPHILS % 70.4 % (36.0-66.0); PLATELET COUNT, AUTOMATED 298 10^3/uL (150-450); RED BLOOD COUNT 4.63 10^6/uL (4.00-5.40); RED CELL DISTRIBUTION WIDTH 13.3 % (11.5-14.5); WHITE BLOOD COUNT 5.3 10^3/uL (4.0-10.0)
== END ==
LOC: M WUC 12:32
DX: Z79.899 Other long term (current) drug therapy (principal)

== ENCOUNTER → 2017-09-27 | Outpatient (CLI) | payer OTHER, MEDICARE ==
[2017-09-27 20:57] LABS: BASO % 0.2 % (0.0-1.0); EOS % 0.4 % (0.0-3.0); HEMATOCRIT 40.1 % (36.0-47.0); HEMOGLOBIN 13.6 g/dl (12.0-15.5); IMMATURE GRANULOCYTE % 1.4 % (0-3.0); LYMPH # 1.5 10^3/uL (1.5-4.5); LYMPH % 31.4 % (24.0-44.0); MEAN CORPUSCULAR HEMOGLOBIN 31.1 pg (27.0-33.0); MEAN CORPUSCULAR HGB CONC 33.9 g/dl (32.0-36.5); MEAN CORPUSCULAR VOLUME 91.8 fl (80.0-96.0); MONO # 0.4 10^3/uL (0.0-0.8); MONO % 7.9 % (0.0-5.0); NEUTROPHILS # 2.9 10^3/uL (1.8-7.7); NEUTROPHILS % 58.7 % (36.0-66.0); PLATELET COUNT, AUTOMATED 257 10^3/uL (150-450); RED BLOOD COUNT 4.37 10^6/uL (4.00-5.40); RED CELL DISTRIBUTION WIDTH 13.1 % (11.5-14.5); WHITE BLOOD COUNT 4.9 10^3/uL (4.0-10.0)
== END ==
LOC: M WUC 16:06
DX: Z51.81 Encounter for therapeutic drug level monitoring (principal); Z79.899 Other long term (current) drug therapy
CPT/HCPCS: 85025

== ENCOUNTER → 2017-10-26 | Outpatient (CLI) | payer OTHER, MEDICARE | LOC: M WHC 10:56 | DX: Z12.31 Encounter for screening mammogram for malignant neoplasm of breast (principal); Z78.0 Asymptomatic menopausal state; Z80.3 Family history of malignant neoplasm of breast; Z80.0 Family history of malignant neoplasm of digestive organs | CPT/HCPCS: 77067 ==

== ENCOUNTER → 2017-10-28 | Outpatient (CLI) | payer OTHER, MEDICARE ==
[2017-10-28 20:27] LABS: BASO % 0.2 % (0.0-1.0); EOS % 0.2 % (0.0-3.0); HEMOGLOBIN 13.3 g/dl (12.0-15.5); IMMATURE GRANULOCYTE % 1.2 % (0-3.0); LYMPH # 1.4 10^3/uL (1.5-4.5); LYMPH % 24.8 % (24.0-44.0); MEAN CORPUSCULAR HEMOGLOBIN 30.9 pg (27.0-33.0); MEAN CORPUSCULAR HGB CONC 34.1 g/dl (32.0-36.5); MEAN CORPUSCULAR VOLUME 90.7 fl (80.0-96.0); MONO # 0.4 10^3/uL (0.0-0.8); MONO % 6.7 % (0.0-5.0); NEUTROPHILS # 3.8 10^3/uL (1.8-7.7); NEUTROPHILS % 66.9 % (36.0-66.0); PLATELET COUNT, AUTOMATED 273 10^3/uL (150-450); RED CELL DISTRIBUTION WIDTH 13.1 % (11.5-14.5); WHITE BLOOD COUNT 5.7 10^3/uL (4.0-10.0)
== END ==
LOC: M WUC 17:22
DX: Z51.81 Encounter for therapeutic drug level monitoring (principal); Z79.899 Other long term (current) drug therapy
CPT/HCPCS: 85025

== ENCOUNTER → 2017-11-28 | Outpatient (CLI) | payer OTHER, MEDICARE ==
[2017-11-28 20:09] LABS: EOS % 0.2 % (0.0-3.0); HEMATOCRIT 38.9 % (36.0-47.0); HEMOGLOBIN 13.2 g/dl (12.0-15.5); IMMATURE GRANULOCYTE % 0.9 % (0-3.0); LYMPH # 1.3 10^3/uL (1.5-4.5); LYMPH % 24.4 % (24.0-44.0); MEAN CORPUSCULAR HEMOGLOBIN 30.6 pg (27.0-33.0); MEAN CORPUSCULAR HGB CONC 33.9 g/dl (32.0-36.5); MONO # 0.4 10^3/uL (0.0-0.8); NEUTROPHILS # 3.6 10^3/uL (1.8-7.7); NEUTROPHILS % 67.5 % (36.0-66.0); PLATELET COUNT, AUTOMATED 263 10^3/uL (150-450); RED BLOOD COUNT 4.32 10^6/uL (4.00-5.40); RED CELL DISTRIBUTION WIDTH 13.2 % (11.5-14.5); WHITE BLOOD COUNT 5.3 10^3/uL (4.0-10.0)
== END ==
LOC: M WUC 15:23
DX: Z51.81 Encounter for therapeutic drug level monitoring (principal); Z79.899 Other long term (current) drug therapy

== ENCOUNTER → 2017-12-28 | Outpatient (CLI) | payer OTHER, MEDICARE ==
[2017-12-28 17:03] LABS: EOS % 0.2 % (0.0-3.0); HEMATOCRIT 39.2 % (36.0-47.0); HEMOGLOBIN 13.2 g/dl (12.0-15.5); IMMATURE GRANULOCYTE % 0.9 % (0-3.0); LYMPH % 22.7 % (24.0-44.0); MEAN CORPUSCULAR HEMOGLOBIN 30.8 pg (27.0-33.0); MEAN CORPUSCULAR HGB CONC 33.7 g/dl (32.0-36.5); MEAN CORPUSCULAR VOLUME 91.6 fl (80.0-96.0); MONO # 0.2 10^3/uL (0.0-0.8); MONO % 5.2 % (0.0-5.0); NEUTROPHILS # 3.2 10^3/uL (1.8-7.7); PLATELET COUNT, AUTOMATED 225 10^3/uL (150-450); RED BLOOD COUNT 4.28 10^6/uL (4.00-5.40); RED CELL DISTRIBUTION WIDTH 13.6 % (11.5-14.5); WHITE BLOOD COUNT 4.4 10^3/uL (4.0-10.0)
== END ==
LOC: M WUC 13:41
DX: Z51.81 Encounter for therapeutic drug level monitoring (principal); Z79.899 Other long term (current) drug therapy
CPT/HCPCS: 85025

== ENCOUNTER → 2018-02-01 | Outpatient (CLI) | payer OTHER, MEDICARE ==
[2018-02-01 12:19] LABS: EOS % 0.2 % (0.0-3.0); HEMATOCRIT 38.4 % (36.0-47.0); IMMATURE GRANULOCYTE % 0.7 % (0-3.0); LYMPH # 0.9 10^3/uL (1.5-4.5); LYMPH % 16.6 % (24.0-44.0); MEAN CORPUSCULAR HEMOGLOBIN 31.2 pg (27.0-33.0); MEAN CORPUSCULAR HGB CONC 33.9 g/dl (32.0-36.5); MEAN CORPUSCULAR VOLUME 92.1 fl (80.0-96.0); MONO # 0.3 10^3/uL (0.0-0.8); MONO % 5.8 % (0.0-5.0); NEUTROPHILS # 4.4 10^3/uL (1.8-7.7); NEUTROPHILS % 76.7 % (36.0-66.0); PLATELET COUNT, AUTOMATED 247 10^3/uL (150-450); RED BLOOD COUNT 4.17 10^6/uL (4.00-5.40); RED CELL DISTRIBUTION WIDTH 13.5 % (11.5-14.5); WHITE BLOOD COUNT 5.7 10^3/uL (4.0-10.0)
[2018-02-01 13:15] LABS: TOTAL 25(OH) VITAMIN D 36.6 NG/ML (30.0-100.0)
[2018-02-01 13:19] LABS: TOTAL T3 71.6 NG/DL (60.0-181.0)
[2018-02-04 00:07] LABS: CLOMIPRAMINE 346 ng/mL (70-200); NORCLOMIPRAMINE 329 ng/mL (150-300); TOTAL (CLO+NORCLO) 675 ng/mL (220-500)
== END ==
LOC: M WUC 10:15
DX: E55.9 Vitamin D deficiency, unspecified (principal); Z79.899 Other long term (current) drug therapy
CPT/HCPCS: 84443

== ENCOUNTER → 2018-03-01 | Outpatient (CLI) | payer OTHER, MEDICARE ==
[2018-03-01 17:19] LABS: BASO % 0.2 % (0.0-1.0); EOS % 0.2 % (0.0-3.0); HEMOGLOBIN 12.7 g/dl (12.0-15.5); IMMATURE GRANULOCYTE % 1.6 % (0-3.0); LYMPH # 1.2 10^3/uL (1.5-4.5); LYMPH % 23.7 % (24.0-44.0); MEAN CORPUSCULAR HGB CONC 33.4 g/dl (32.0-36.5); MEAN CORPUSCULAR VOLUME 92.7 fl (80.0-96.0); MONO # 0.4 10^3/uL (0.0-0.8); MONO % 7.5 % (0.0-5.0); NEUTROPHILS # 3.4 10^3/uL (1.8-7.7); NEUTROPHILS % 66.8 % (36.0-66.0); PLATELET COUNT, AUTOMATED 289 10^3/uL (150-450); RED CELL DISTRIBUTION WIDTH 13.3 % (11.5-14.5); WHITE BLOOD COUNT 5.1 10^3/uL (4.0-10.0)
== END ==
LOC: M WUC 11:35
DX: Z51.81 Encounter for therapeutic drug level monitoring (principal); Z79.899 Other long term (current) drug therapy
CPT/HCPCS: 85025

== ENCOUNTER → 2018-03-31 | Outpatient (CLI) | payer MEDICARE, OTHER ==
[2018-03-31 16:42] LABS: EOS % 0.2 % (0.0-3.0); HEMATOCRIT 38.9 % (36.0-47.0); HEMOGLOBIN 13.4 g/dl (12.0-15.5); IMMATURE GRANULOCYTE % 0.6 % (0-3.0); LYMPH # 1.2 10^3/uL (1.5-4.5); LYMPH % 23.4 % (24.0-44.0); MEAN CORPUSCULAR HEMOGLOBIN 30.9 pg (27.0-33.0); MEAN CORPUSCULAR HGB CONC 34.4 g/dl (32.0-36.5); MEAN CORPUSCULAR VOLUME 89.6 fl (80.0-96.0); MONO # 0.3 10^3/uL (0.0-0.8); MONO % 5.8 % (0.0-5.0); NEUTROPHILS # 3.6 10^3/uL (1.8-7.7); PLATELET COUNT, AUTOMATED 239 10^3/uL (150-450); RED BLOOD COUNT 4.34 10^6/uL (4.00-5.40); RED CELL DISTRIBUTION WIDTH 13.3 % (11.5-14.5); WHITE BLOOD COUNT 5.2 10^3/uL (4.0-10.0)
== END ==
LOC: M WUC 13:29
DX: Z51.81 Encounter for therapeutic drug level monitoring (principal); Z79.899 Other long term (current) drug therapy
CPT/HCPCS: 85025

== ENCOUNTER → 2018-05-03 | Outpatient (CLI) | payer OTHER, MEDICARE ==
[2018-05-03 16:51] LABS: BASO % 0.4 % (0.0-1.0); EOS % 0.2 % (0.0-3.0); HEMATOCRIT 41.1 % (36.0-47.0); IMMATURE GRANULOCYTE % 1.1 % (0-3.0); LYMPH # 1.4 10^3/uL (1.5-4.5); LYMPH % 24.2 % (24.0-44.0); MEAN CORPUSCULAR HGB CONC 34.1 g/dl (32.0-36.5); MEAN CORPUSCULAR VOLUME 91.1 fl (80.0-96.0); MONO # 0.4 10^3/uL (0.0-0.8); MONO % 6.3 % (0.0-5.0); NEUTROPHILS # 3.8 10^3/uL (1.8-7.7); NEUTROPHILS % 67.8 % (36.0-66.0); PLATELET COUNT, AUTOMATED 240 10^3/uL (150-450); RED BLOOD COUNT 4.51 10^6/uL (4.00-5.40); RED CELL DISTRIBUTION WIDTH 13.2 % (11.5-14.5); WHITE BLOOD COUNT 5.6 10^3/uL (4.0-10.0)
== END ==
LOC: M WUC 13:35
DX: Z79.899 Other long term (current) drug therapy (principal)
CPT/HCPCS: 85025

== ENCOUNTER → 2018-06-16 | Outpatient (CLI) | payer OTHER, MEDICARE ==
[2018-06-16 14:20] LABS: BASO % 0.2 % (0.0-1.0); EOS % 0.2 % (0.0-3.0); HEMOGLOBIN 13.7 g/dl (12.0-15.5); LYMPH # 1.9 10^3/uL (1.5-4.5); LYMPH % 34.5 % (24.0-44.0); MEAN CORPUSCULAR HEMOGLOBIN 30.8 pg (27.0-33.0); MEAN CORPUSCULAR HGB CONC 33.4 g/dl (32.0-36.5); MEAN CORPUSCULAR VOLUME 92.1 fl (80.0-96.0); MONO # 0.3 10^3/uL (0.0-0.8); MONO % 6.3 % (0.0-5.0); NEUTROPHILS # 3.1 10^3/uL (1.8-7.7); NEUTROPHILS % 57.7 % (36.0-66.0); PLATELET COUNT, AUTOMATED 217 10^3/uL (150-450); RED BLOOD COUNT 4.45 10^6/uL (4.00-5.40); WHITE BLOOD COUNT 5.4 10^3/uL (4.0-10.0)
[2018-06-16 15:02] LABS: HEMOGLOBIN A1c 5.4 %
[2018-06-16 15:08] LABS: ALBUMIN 3.7 GM/DL (3.2-5.2); ALT/SGPT 36 U/L (12-78); BILIRUBIN,TOTAL 0.3 MG/DL (0.2-1.0); BLOOD UREA NITROGEN 19 MG/DL (7-18); CALCIUM LEVEL 8.3 MG/DL (8.5-10.1); CARBON DIOXIDE LEVEL 25 MEQ/L (21-32); CHLORIDE LEVEL 108 MEQ/L (98-107); CHOLESTEROL LEVEL 197 MG/DL (<200); CREATININE FOR GFR 0.96 MG/DL (0.55-1.30); GLOMERULAR FILTRATION RATE > 60.0 (>51); GLUCOSE, FASTING 93 MG/DL (70-100); HDL CHOLESTEROL 50 MG/DL (>40); LDL CHOLESTEROL 107 MG/DL (<100); NON-HDL-C 147 MG/DL; POTASSIUM SERUM 4.4 MEQ/L (3.5-5.1); SODIUM LEVEL 142 MEQ/L (136-145); THYROXINE (T4) 6.8 UG/DL (4.5-12.0); TOTAL PROTEIN 6.9 GM/DL (6.4-8.2); TRIGLYCERIDES LEVEL 202 MG/DL (<150)
[2018-06-16 16:08] LABS: TOTAL T3 84.2 NG/DL (60.0-181.0)
[2018-06-20 10:16] LABS: CLOMIPRAMINE 377 ng/mL (70-200); CLOZAPINE 1 654 ng/mL (350-650); CLOZAPINE 2 253 ng/mL (Not Estab.); CLOZAPINE 3 907 ng/mL (.); NORCLOMIPRAMINE 410 ng/mL (150-300); TOTAL (CLO+NORCLO) 787 ng/mL (220-500)
== END ==
LOC: M WUC 09:02
PROVIDERS: ATTEND Acupuncturist
DX: Z79.899 Other long term (current) drug therapy (principal)
CPT/HCPCS: 36415; 80053; 80061; 80159; 83036; 84436; 84443; 84480; 85025; G0480

== ENCOUNTER → 2018-06-30 | Outpatient (CLI) | payer OTHER, MEDICARE ==
[2018-06-30 15:54] LABS: BASO % 0.1 % (0.0-1.0); EOS % 0.1 % (0.0-3.0); HEMATOCRIT 38.7 % (36.0-47.0); HEMOGLOBIN 13.4 g/dl (12.0-15.5); LYMPH % 13.5 % (24.0-44.0); MEAN CORPUSCULAR HEMOGLOBIN 31.2 pg (27.0-33.0); MEAN CORPUSCULAR HGB CONC 34.6 g/dl (32.0-36.5); MONO # 0.3 10^3/uL (0.0-0.8); MONO % 4.5 % (0.0-5.0); NEUTROPHILS # 6.1 10^3/uL (1.8-7.7); NEUTROPHILS % 81.1 % (36.0-66.0); PLATELET COUNT, AUTOMATED 250 10^3/uL (150-450); WHITE BLOOD COUNT 7.6 10^3/uL (4.0-10.0)
== END ==
LOC: M WUC 13:49
PROVIDERS: ATTEND Acupuncturist
DX: Z79.899 Other long term (current) drug therapy (principal)

== ENCOUNTER → 2018-07-31 | Outpatient (CLI) | payer OTHER, MEDICARE ==
[2018-07-31 16:59] LABS: BASO % 0.2 % (0.0-1.0); EOS % 0.2 % (0.0-3.0); HEMATOCRIT 39.7 % (36.0-47.0); HEMOGLOBIN 13.5 g/dl (12.0-15.5); LYMPH # 1.5 10^3/uL (1.5-4.5); LYMPH % 23.7 % (24.0-44.0); MEAN CORPUSCULAR HEMOGLOBIN 30.8 pg (27.0-33.0); MEAN CORPUSCULAR VOLUME 90.6 fl (80.0-96.0); MONO # 0.4 10^3/uL (0.0-0.8); MONO % 5.7 % (0.0-5.0); NEUTROPHILS # 4.4 10^3/uL (1.8-7.7); NEUTROPHILS % 69.6 % (36.0-66.0); PLATELET COUNT, AUTOMATED 231 10^3/uL (150-450); RED BLOOD COUNT 4.38 10^6/uL (4.00-5.40); WHITE BLOOD COUNT 6.3 10^3/uL (4.0-10.0)
[2018-08-04 00:07] LABS: CLOMIPRAMINE 211 ng/mL (70-200); NORCLOMIPRAMINE 276 ng/mL (150-300); TOTAL (CLO+NORCLO) 487 ng/mL (220-500)
== END ==
LOC: M WUC 12:44
PROVIDERS: ATTEND Acupuncturist
DX: Z79.899 Other long term (current) drug therapy (principal)

== ENCOUNTER → 2018-08-28 | Outpatient (CLI) | payer MEDICARE, OTHER ==
[2018-08-28 17:15] LABS: BASO % 0.2 % (0.0-1.0); EOS % 0.4 % (0.0-3.0); HEMATOCRIT 38.3 % (36.0-47.0); HEMOGLOBIN 12.7 g/dl (12.0-15.5); LYMPH # 1.4 10^3/uL (1.5-4.5); LYMPH % 29.7 % (24.0-44.0); MEAN CORPUSCULAR HEMOGLOBIN 30.6 pg (27.0-33.0); MEAN CORPUSCULAR HGB CONC 33.2 g/dl (32.0-36.5); MEAN CORPUSCULAR VOLUME 92.3 fl (80.0-96.0); MONO # 0.4 10^3/uL (0.0-0.8); MONO % 7.3 % (0.0-5.0); NEUTROPHILS % 61.4 % (36.0-66.0); PLATELET COUNT, AUTOMATED 227 10^3/uL (150-450); RED BLOOD COUNT 4.15 10^6/uL (4.00-5.40); WHITE BLOOD COUNT 4.8 10^3/uL (4.0-10.0)
== END ==
LOC: M WUC 13:37
PROVIDERS: ATTEND Acupuncturist
DX: Z79.899 Other long term (current) drug therapy (principal)

== ENCOUNTER → 2018-09-26 | Outpatient (CLI) | payer MEDICARE, OTHER ==
[2018-09-26 16:53] LABS: BASO % 0.2 % (0.0-1.0); EOS % 0.2 % (0.0-3.0); HEMOGLOBIN 13.7 g/dl (12.0-15.5); LYMPH # 1.3 10^3/uL (1.5-4.5); LYMPH % 24.5 % (24.0-44.0); MEAN CORPUSCULAR HEMOGLOBIN 31.2 pg (27.0-33.0); MEAN CORPUSCULAR HGB CONC 34.3 g/dl (32.0-36.5); MEAN CORPUSCULAR VOLUME 91.1 fl (80.0-96.0); MONO # 0.3 10^3/uL (0.0-0.8); MONO % 6.2 % (0.0-5.0); NEUTROPHILS # 3.5 10^3/uL (1.8-7.7); NEUTROPHILS % 68.3 % (36.0-66.0); PLATELET COUNT, AUTOMATED 231 10^3/uL (150-450); RED BLOOD COUNT 4.39 10^6/uL (4.00-5.40); WHITE BLOOD COUNT 5.2 10^3/uL (4.0-10.0)
== END ==
LOC: M WUC 14:17
PROVIDERS: ATTEND Acupuncturist
DX: Z51.81 Encounter for therapeutic drug level monitoring (principal); Z79.899 Other long term (current) drug therapy

== ENCOUNTER → 2018-10-25 | Outpatient (CLI) | payer MEDICARE, OTHER ==
[2018-10-25 17:44] LABS: BASO % 0.2 % (0.0-1.0); EOS % 0.2 % (0.0-3.0); HEMATOCRIT 38.3 % (36.0-47.0); LYMPH # 1.3 10^3/uL (1.5-4.5); LYMPH % 29.3 % (24.0-44.0); MEAN CORPUSCULAR HEMOGLOBIN 31.2 pg (27.0-33.0); MEAN CORPUSCULAR HGB CONC 33.9 g/dl (32.0-36.5); MEAN CORPUSCULAR VOLUME 91.8 fl (80.0-96.0); MONO # 0.3 10^3/uL (0.0-0.8); MONO % 5.9 % (0.0-5.0); NEUTROPHILS # 2.9 10^3/uL (1.8-7.7); NEUTROPHILS % 63.1 % (36.0-66.0); PLATELET COUNT, AUTOMATED 249 10^3/uL (150-450); RED BLOOD COUNT 4.17 10^6/uL (4.00-5.40); WHITE BLOOD COUNT 4.5 10^3/uL (4.0-10.0)
== END ==
LOC: M WUC 11:27
PROVIDERS: ATTEND Acupuncturist
DX: Z79.899 Other long term (current) drug therapy (principal)

== ENCOUNTER → 2018-11-25 | Outpatient (CLI) | payer MEDICARE, OTHER ==
[2018-11-25 18:35] LABS: BASO % 0.3 % (0.0-1.0); EOS % 0.3 % (0.0-3.0); HEMATOCRIT 39.1 % (36.0-47.0); HEMOGLOBIN 12.9 g/dl (12.0-15.5); LYMPH # 1.1 10^3/uL (1.5-4.5); LYMPH % 27.2 % (24.0-44.0); MEAN CORPUSCULAR HEMOGLOBIN 30.6 pg (27.0-33.0); MEAN CORPUSCULAR VOLUME 92.9 fl (80.0-96.0); MONO # 0.3 10^3/uL (0.0-0.8); MONO % 6.9 % (0.0-5.0); NEUTROPHILS # 2.6 10^3/uL (1.8-7.7); NEUTROPHILS % 64.8 % (36.0-66.0); PLATELET COUNT, AUTOMATED 224 10^3/uL (150-450); RED BLOOD COUNT 4.21 10^6/uL (4.00-5.40); WHITE BLOOD COUNT 3.9 10^3/uL (4.0-10.0)
== END ==
LOC: M WUC 10:56
PROVIDERS: ATTEND Acupuncturist
DX: Z79.899 Other long term (current) drug therapy (principal)

== ENCOUNTER → 2018-12-27 | Outpatient (CLI) | payer MEDICARE, OTHER ==
[2018-12-27 20:13] LABS: EOS % 0.2 % (0.0-3.0); HEMATOCRIT 38.5 % (36.0-47.0); HEMOGLOBIN 13.3 g/dl (12.0-15.5); LYMPH # 1.4 10^3/uL (1.5-4.5); LYMPH % 30.8 % (24.0-44.0); MEAN CORPUSCULAR HEMOGLOBIN 30.9 pg (27.0-33.0); MEAN CORPUSCULAR HGB CONC 34.5 g/dl (32.0-36.5); MEAN CORPUSCULAR VOLUME 89.3 fl (80.0-96.0); MONO # 0.3 10^3/uL (0.0-0.8); MONO % 7.3 % (0.0-5.0); NEUTROPHILS # 2.8 10^3/uL (1.8-7.7); PLATELET COUNT, AUTOMATED 239 10^3/uL (150-450); RED BLOOD COUNT 4.31 10^6/uL (4.00-5.40); WHITE BLOOD COUNT 4.5 10^3/uL (4.0-10.0)
== END ==
LOC: M WUC 17:40
PROVIDERS: ATTEND Acupuncturist
DX: Z79.899 Other long term (current) drug therapy (principal)

== ENCOUNTER → 2019-01-11 | Outpatient (CLI) | payer MEDICARE, OTHER ==
--- NOTE | 2019-01-11 17:07 | REPMRS ---
Patient History The patient states she had a clinical breast exam in 11/2018. Family history of pancreatic cancer and breast cancer at age 50 or over in maternal aunt, breast cancer at age 50 or over in paternal cousin, breast cancer at age 50 or over in maternal cousin, colorectal cancer in maternal aunt, breast cancer in maternal cousin. Digital Woman Screen Mammo: January 11, 2019 - Exam #: [id number] Bilateral CC and MLO view(s) were taken. Technologist: Kim Carr, Technologist Prior study comparison: October 26, 2017, digital woman screen mammo performed at [facility]. September 01, 2016, digital woman screen mammo performed at [facility]. October 03, 2013, bilateral bilat screen digital mammo, performed at [facility] ([facility] FINDINGS: There are scattered fibroglandular densities. There has been no change in the appearance of the mammogram from the prior studies. There is a mild amount of scattered fibroglandular density which is fairly symmetric. There is no interval development of dominant mass, architectural distortion, or grouped microcalcification suggestive of malignancy. 3-D tomosynthesis shows no additional findings. Assessment: BI-RADS/ACR category 1 mammogram. Negative Mammogram. Recommendation Routine screening mammogram of both breasts in 1 year (for women over age 40). This patient's Lifetime Breast Cancer Risk is estimated at 11.5 %. This mammogram was interpreted with the aid of an FDA-approved computer-aided dectection system. Electronically Signed By: Filippo Clark MD 01/11/19 0865
== END ==
LOC: M WHC 13:08
PROVIDERS: ATTEND Obstetrics & Gynecology Female Pelvic Medicine and Reconstructive Surgery
DX: Z12.31 Encounter for screening mammogram for malignant neoplasm of breast (principal)

== ENCOUNTER → 2019-02-01 | Outpatient (CLI) | payer MEDICARE, OTHER ==
[2019-02-01 16:50] LABS: BASO % 0.2 % (0.0-1.0); EOS % 0.2 % (0.0-3.0); HEMOGLOBIN 12.7 g/dl (12.0-15.5); LYMPH # 1.4 10^3/uL (1.5-5.0); LYMPH % 25.9 % (24.0-44.0); MEAN CORPUSCULAR HEMOGLOBIN 30.9 pg (27.0-33.0); MEAN CORPUSCULAR HGB CONC 34.3 g/dl (32.0-36.5); MONO # 0.3 10^3/uL (0.0-0.8); MONO % 6.4 % (0.0-5.0); NEUTROPHILS # 3.5 10^3/uL (1.5-8.5); NEUTROPHILS % 66.7 % (36.0-66.0); PLATELET COUNT, AUTOMATED 243 10^3/uL (150-450); RED BLOOD COUNT 4.11 10^6/uL (4.00-5.40); WHITE BLOOD COUNT 5.3 10^3/uL (4.0-10.0)
== END ==
LOC: M WUC 14:23
PROVIDERS: ATTEND Acupuncturist
DX: Z79.899 Other long term (current) drug therapy (principal)

== ENCOUNTER → 2019-03-07 | Outpatient (CLI) | payer MEDICARE, OTHER ==
[2019-03-07 16:47] LABS: EOS % 0.2 % (0.0-3.0); HEMATOCRIT 38.6 % (36.0-47.0); HEMOGLOBIN 13.1 g/dl (12.0-15.5); LYMPH # 1.2 10^3/uL (1.5-5.0); MEAN CORPUSCULAR HEMOGLOBIN 30.7 pg (27.0-33.0); MEAN CORPUSCULAR HGB CONC 33.9 g/dl (32.0-36.5); MEAN CORPUSCULAR VOLUME 90.4 fl (80.0-96.0); MONO # 0.4 10^3/uL (0.0-0.8); NEUTROPHILS # 2.9 10^3/uL (1.5-8.5); NEUTROPHILS % 63.9 % (36.0-66.0); PLATELET COUNT, AUTOMATED 230 10^3/uL (150-450); RED BLOOD COUNT 4.27 10^6/uL (4.00-5.40); WHITE BLOOD COUNT 4.5 10^3/uL (4.0-10.0)
== END ==
LOC: M WUC 13:59
PROVIDERS: ATTEND Acupuncturist
DX: Z79.899 Other long term (current) drug therapy (principal)

== ENCOUNTER → 2019-04-05 | Outpatient (CLI) | payer MEDICARE, OTHER ==
[2019-04-05 17:08] LABS: BASO % 0.2 % (0.0-1.0); EOS % 0.2 % (0.0-3.0); HEMATOCRIT 38.7 % (36.0-47.0); HEMOGLOBIN 12.8 g/dl (12.0-15.5); LYMPH # 1.3 10^3/uL (1.5-5.0); LYMPH % 29.3 % (24.0-44.0); MEAN CORPUSCULAR HEMOGLOBIN 30.3 pg (27.0-33.0); MEAN CORPUSCULAR HGB CONC 33.1 g/dl (32.0-36.5); MEAN CORPUSCULAR VOLUME 91.7 fl (80.0-96.0); MONO # 0.3 10^3/uL (0.0-0.8); MONO % 6.6 % (0.0-5.0); NEUTROPHILS # 2.8 10^3/uL (1.5-8.5); NEUTROPHILS % 63.2 % (36.0-66.0); PLATELET COUNT, AUTOMATED 244 10^3/uL (150-450); RED BLOOD COUNT 4.22 10^6/uL (4.00-5.40); WHITE BLOOD COUNT 4.4 10^3/uL (4.0-10.0)
== END ==
LOC: M WUC 12:00
PROVIDERS: ATTEND Acupuncturist
DX: Z51.81 Encounter for therapeutic drug level monitoring (principal); Z79.899 Other long term (current) drug therapy

== ENCOUNTER → 2019-05-09 | Outpatient (CLI) | payer MEDICARE, OTHER ==
[2019-05-09 13:38] LABS: BASO % 0.2 % (0.0-1.0); EOS % 0.2 % (0.0-3.0); HEMATOCRIT 38.6 % (36.0-47.0); LYMPH # 1.2 10^3/uL (1.5-5.0); LYMPH % 20.7 % (24.0-44.0); MEAN CORPUSCULAR HEMOGLOBIN 30.4 pg (27.0-33.0); MEAN CORPUSCULAR HGB CONC 33.7 g/dl (32.0-36.5); MEAN CORPUSCULAR VOLUME 90.4 fl (80.0-96.0); MONO # 0.3 10^3/uL (0.0-0.8); MONO % 5.5 % (0.0-5.0); NEUTROPHILS # 4.4 10^3/uL (1.5-8.5); NEUTROPHILS % 72.7 % (36.0-66.0); PLATELET COUNT, AUTOMATED 229 10^3/uL (150-450); RED BLOOD COUNT 4.27 10^6/uL (4.00-5.40)
== END ==
LOC: M WUC 11:12
PROVIDERS: ATTEND Acupuncturist
DX: Z79.899 Other long term (current) drug therapy (principal)

== ENCOUNTER → 2019-06-14 | Outpatient (CLI) | payer MEDICARE, OTHER ==
[2019-06-14 16:23] LABS: BASO % 0.2 % (0.0-1.0); EOS % 0.4 % (0.0-3.0); HEMOGLOBIN 13.1 g/dl (12.0-15.5); LYMPH # 1.6 10^3/uL (1.5-5.0); LYMPH % 28.4 % (24.0-44.0); MEAN CORPUSCULAR HGB CONC 32.8 g/dl (32.0-36.5); MEAN CORPUSCULAR VOLUME 91.7 fl (80.0-96.0); MONO # 0.4 10^3/uL (0.0-0.8); MONO % 6.8 % (0.0-5.0); NEUTROPHILS # 3.6 10^3/uL (1.5-8.5); NEUTROPHILS % 63.5 % (36.0-66.0); PLATELET COUNT, AUTOMATED 253 10^3/uL (150-450); RED BLOOD COUNT 4.36 10^6/uL (4.00-5.40); WHITE BLOOD COUNT 5.7 10^3/uL (4.0-10.0)
== END ==
LOC: M WUC 10:53
PROVIDERS: ATTEND Acupuncturist
DX: Z51.81 Encounter for therapeutic drug level monitoring (principal); Z79.899 Other long term (current) drug therapy

== ENCOUNTER → 2019-07-18 | Outpatient (CLI) | payer MEDICARE, OTHER ==
[2019-07-18 15:48] LABS: BASO % 0.2 % (0.0-1.0); EOS % 0.2 % (0.0-3.0); HEMATOCRIT 38.6 % (36.0-47.0); HEMOGLOBIN 12.9 g/dl (12.0-15.5); LYMPH # 1.1 10^3/uL (1.5-5.0); LYMPH % 23.4 % (24.0-44.0); MEAN CORPUSCULAR HEMOGLOBIN 30.4 pg (27.0-33.0); MEAN CORPUSCULAR HGB CONC 33.4 g/dl (32.0-36.5); MEAN CORPUSCULAR VOLUME 90.8 fl (80.0-96.0); MONO # 0.3 10^3/uL (0.0-0.8); MONO % 5.7 % (0.0-5.0); NEUTROPHILS # 3.4 10^3/uL (1.5-8.5); NEUTROPHILS % 69.5 % (36.0-66.0); PLATELET COUNT, AUTOMATED 215 10^3/uL (150-450); RED BLOOD COUNT 4.25 10^6/uL (4.00-5.40); WHITE BLOOD COUNT 4.9 10^3/uL (4.0-10.0)
== END ==
LOC: M WUC 13:38
PROVIDERS: ATTEND Acupuncturist
DX: Z51.81 Encounter for therapeutic drug level monitoring (principal); Z79.899 Other long term (current) drug therapy

== ENCOUNTER → 2019-10-01 | Outpatient (CLI) | payer MEDICARE, OTHER ==
[2019-10-01 19:38] LABS: EOS % 0.2 % (0.0-3.0); HEMATOCRIT 39.6 % (36.0-47.0); HEMOGLOBIN 13.3 g/dl (12.0-15.5); LYMPH # 1.7 10^3/uL (1.5-5.0); LYMPH % 33.3 % (24.0-44.0); MEAN CORPUSCULAR HEMOGLOBIN 30.9 pg (27.0-33.0); MEAN CORPUSCULAR HGB CONC 33.6 g/dl (32.0-36.5); MEAN CORPUSCULAR VOLUME 92.1 fl (80.0-96.0); MONO # 0.4 10^3/uL (0.0-0.8); MONO % 6.8 % (0.0-5.0); NEUTROPHILS % 58.9 % (36.0-66.0); PLATELET COUNT, AUTOMATED 220 10^3/uL (150-450); WHITE BLOOD COUNT 5.2 10^3/uL (4.0-10.0)
== END ==
LOC: M WUC 13:34
PROVIDERS: ATTEND Acupuncturist
DX: Z51.81 Encounter for therapeutic drug level monitoring (principal); Z79.899 Other long term (current) drug therapy

== ENCOUNTER → 2019-11-07 | Outpatient (CLI) | payer MEDICARE, OTHER ==
[2019-11-07 16:19] LABS: BASO % 0.2 % (0.0-1.0); EOS % 0.2 % (0.0-3.0); HEMATOCRIT 39.1 % (36.0-47.0); HEMOGLOBIN 13.4 g/dl (12.0-15.5); LYMPH # 1.6 10^3/uL (1.5-5.0); LYMPH % 31.2 % (24.0-44.0); MEAN CORPUSCULAR HEMOGLOBIN 31.3 pg (27.0-33.0); MEAN CORPUSCULAR HGB CONC 34.3 g/dl (32.0-36.5); MEAN CORPUSCULAR VOLUME 91.4 fl (80.0-96.0); MONO # 0.3 10^3/uL (0.0-0.8); MONO % 6.1 % (0.0-5.0); NEUTROPHILS # 3.1 10^3/uL (1.5-8.5); NEUTROPHILS % 61.5 % (36.0-66.0); PLATELET COUNT, AUTOMATED 238 10^3/uL (150-450); RED BLOOD COUNT 4.28 10^6/uL (4.00-5.40); WHITE BLOOD COUNT 5.1 10^3/uL (4.0-10.0)
== END ==
LOC: M WUC 14:22
PROVIDERS: ATTEND Acupuncturist
DX: Z79.899 Other long term (current) drug therapy (principal)

== ENCOUNTER → 2020-01-01 | Outpatient (REF) | payer MEDICARE, OTHER ==
[2020-01-28 15:04] LABS: EOS % 0.2 % (0.0-3.0); HEMATOCRIT 42.9 % (36.0-47.0); HEMOGLOBIN 14.1 g/dl (12.0-15.5); LYMPH # 1.6 10^3/uL (1.5-5.0); LYMPH % 34.3 % (24.0-44.0); MEAN CORPUSCULAR HEMOGLOBIN 31.1 pg (27.0-33.0); MEAN CORPUSCULAR HGB CONC 32.9 g/dl (32.0-36.5); MEAN CORPUSCULAR VOLUME 94.7 fl (80.0-96.0); MONO # 0.4 10^3/uL (0.0-0.8); MONO % 7.3 % (0.0-5.0); NEUTROPHILS # 2.8 10^3/uL (1.5-8.5); NEUTROPHILS % 57.6 % (36.0-66.0); PLATELET COUNT, AUTOMATED 221 10^3/uL (150-450); RED BLOOD COUNT 4.53 10^6/uL (4.00-5.40); WHITE BLOOD COUNT 4.8 10^3/uL (4.0-10.0)
== END ==
LOC: M LABWUC 16:31
PROVIDERS: ATTEND Acupuncturist
DX: Z79.899 Other long term (current) drug therapy (principal)

== ENCOUNTER → 2020-02-03 | Outpatient (CLI) | payer MEDICARE, OTHER ==
[2020-02-03 16:59] LABS: BASO % 0.3 % (0.0-1.0); HEMATOCRIT 41.1 % (36.0-47.0); LYMPH # 1.3 10^3/uL (1.5-5.0); LYMPH % 31.6 % (24.0-44.0); MEAN CORPUSCULAR HEMOGLOBIN 31.3 pg (27.0-33.0); MEAN CORPUSCULAR HGB CONC 34.1 g/dl (32.0-36.5); MEAN CORPUSCULAR VOLUME 91.7 fl (80.0-96.0); MONO # 0.3 10^3/uL (0.0-0.8); MONO % 7.3 % (0.0-5.0); NEUTROPHILS # 2.4 10^3/uL (1.5-8.5); NEUTROPHILS % 59.8 % (36.0-66.0); PLATELET COUNT, AUTOMATED 243 10^3/uL (150-450); RED BLOOD COUNT 4.48 10^6/uL (4.00-5.40)
== END ==
LOC: M WUC 11:52
PROVIDERS: ATTEND Acupuncturist
DX: Z79.899 Other long term (current) drug therapy (principal)

== ENCOUNTER → 2020-03-03 | Outpatient (CLI) | payer MEDICARE, OTHER ==
[2020-03-03 20:26] LABS: BASO % 0.2 % (0.0-1.0); EOS % 0.2 % (0.0-3.0); HEMATOCRIT 43.1 % (36.0-47.0); HEMOGLOBIN 14.5 g/dl (12.0-15.5); LYMPH # 1.6 10^3/uL (1.5-5.0); LYMPH % 30.6 % (24.0-44.0); MEAN CORPUSCULAR HEMOGLOBIN 30.7 pg (27.0-33.0); MEAN CORPUSCULAR HGB CONC 33.6 g/dl (32.0-36.5); MEAN CORPUSCULAR VOLUME 91.1 fl (80.0-96.0); MONO # 0.3 10^3/uL (0.0-0.8); MONO % 5.3 % (0.0-5.0); NEUTROPHILS # 3.2 10^3/uL (1.5-8.5); NEUTROPHILS % 62.7 % (36.0-66.0); PLATELET COUNT, AUTOMATED 254 10^3/uL (150-450); RED BLOOD COUNT 4.73 10^6/uL (4.00-5.40); WHITE BLOOD COUNT 5.1 10^3/uL (4.0-10.0)
== END ==
LOC: M WUC 15:52
PROVIDERS: ATTEND Acupuncturist
DX: Z51.81 Encounter for therapeutic drug level monitoring (principal); Z79.899 Other long term (current) drug therapy

== ENCOUNTER → 2020-04-05 | Outpatient (CLI) | payer MEDICARE, OTHER ==
[2020-04-05 13:24] LABS: BASO % 0.4 % (0.0-1.0); HEMATOCRIT 41.5 % (36.0-47.0); HEMOGLOBIN 13.7 g/dl (12.0-15.5); LYMPH # 1.4 10^3/uL (1.5-5.0); LYMPH % 29.2 % (24.0-44.0); MEAN CORPUSCULAR HEMOGLOBIN 29.8 pg (27.0-33.0); MEAN CORPUSCULAR VOLUME 90.2 fl (80.0-96.0); MONO # 0.3 10^3/uL (0.0-0.8); MONO % 5.9 % (0.0-5.0); NEUTROPHILS % 63.4 % (36.0-66.0); PLATELET COUNT, AUTOMATED 221 10^3/uL (150-450); WHITE BLOOD COUNT 4.7 10^3/uL (4.0-10.0)
== END ==
LOC: M WUC 11:18
PROVIDERS: ATTEND Acupuncturist
DX: Z51.81 Encounter for therapeutic drug level monitoring (principal); Z79.899 Other long term (current) drug therapy

== ENCOUNTER → 2020-06-04 | Outpatient (CLI) | payer MEDICARE, OTHER ==
[2020-06-04 16:08] LABS: BASO % 0.1 % (0.0-1.0); EOS % 0.1 % (0.0-3.0); HEMATOCRIT 42.9 % (36.0-47.0); HEMOGLOBIN 14.4 g/dl (12.0-15.5); LYMPH # 1.9 10^3/uL (1.5-5.0); LYMPH % 26.9 % (24.0-44.0); MEAN CORPUSCULAR HEMOGLOBIN 30.7 pg (27.0-33.0); MEAN CORPUSCULAR HGB CONC 33.6 g/dl (32.0-36.5); MEAN CORPUSCULAR VOLUME 91.5 fl (80.0-96.0); MONO # 0.4 10^3/uL (0.0-0.8); MONO % 6.2 % (0.0-5.0); NEUTROPHILS # 4.7 10^3/uL (1.5-8.5); NEUTROPHILS % 65.7 % (36.0-66.0); PLATELET COUNT, AUTOMATED 223 10^3/uL (150-450); RED BLOOD COUNT 4.69 10^6/uL (4.00-5.40); WHITE BLOOD COUNT 7.1 10^3/uL (4.0-10.0)
== END ==
LOC: M WUC 14:57
PROVIDERS: ATTEND Acupuncturist
DX: Z51.81 Encounter for therapeutic drug level monitoring (principal); Z79.899 Other long term (current) drug therapy

== ENCOUNTER → 2020-06-06 | Outpatient (CLI) | payer MEDICARE, OTHER ==
--- NOTE | 2020-06-06 11:38 | REPMRS ---
Patient History The patient states she had a clinical breast exam in July 2019. Family history of pancreatic cancer and breast cancer at age 50 or over in maternal aunt, breast cancer at age 50 or over in paternal cousin, breast cancer at age 50 or over in maternal cousin, colorectal cancer in maternal aunt, breast cancer in maternal cousin. 3D TOMOSYNTHESIS WAS PERFORMED. [facility] for [facility] cancer [facility] 11.2%. Volpara breast density b. Digital Woman Screen Mammo: June 06, 2020 - Exam #: [id number] Bilateral CC and MLO view(s) were taken. Technologist: Cynthia Mata, Technologist Prior study comparison: January 11, 2019, bilateral digital woman screen mammo performed at [facility]. October 26, 2017, digital woman screen mammo performed at [facility]. FINDINGS: There are scattered fibroglandular densities. There has been no change in the appearance of the mammogram from the prior studies. There is a mild amount of residual fibroglandular tissue which is fairly symmetric. There is no interval development of dominant mass, architectural distortion, or clustered microcalcification suggestive of malignancy. Assessment: BI-RADS/ACR category 1 mammogram. Negative Mammogram. Recommendation Routine screening mammogram in 1 year (for women over age 40). This mammogram was interpreted with the aid of an FDA-approved computer-aided dectection system. Electronically Signed By: Freddie Rangel MD 06/06/20 2909
== END ==
LOC: M WHC 10:29
PROVIDERS: ATTEND Obstetrics & Gynecology Female Pelvic Medicine and Reconstructive Surgery
DX: Z12.31 Encounter for screening mammogram for malignant neoplasm of breast (principal); Z80.0 Family history of malignant neoplasm of digestive organs; Z80.3 Family history of malignant neoplasm of breast

== ENCOUNTER → 2020-07-07 | Outpatient (CLI) | payer MEDICARE, OTHER ==
[2020-07-07 19:28] LABS: BASO % 0.5 % (0.0-1.0); EOS % 0.2 % (0.0-3.0); HEMATOCRIT 38.6 % (36.0-47.0); HEMOGLOBIN 12.7 g/dl (12.0-15.5); LYMPH # 1.7 10^3/uL (1.5-5.0); LYMPH % 39.8 % (24.0-44.0); MEAN CORPUSCULAR HEMOGLOBIN 30.2 pg (27.0-33.0); MEAN CORPUSCULAR HGB CONC 32.9 g/dl (32.0-36.5); MEAN CORPUSCULAR VOLUME 91.9 fl (80.0-96.0); MONO # 0.4 10^3/uL (0.0-0.8); MONO % 9.3 % (0.0-5.0); NEUTROPHILS # 2.1 10^3/uL (1.5-8.5); NEUTROPHILS % 49.2 % (36.0-66.0); PLATELET COUNT, AUTOMATED 244 10^3/uL (150-450); WHITE BLOOD COUNT 4.2 10^3/uL (4.0-10.0)
== END ==
LOC: M WUC 15:13
PROVIDERS: ATTEND Acupuncturist
DX: Z79.899 Other long term (current) drug therapy (principal)

== ENCOUNTER → 2020-08-13 | Outpatient (REF) | payer MEDICARE, OTHER ==
[2020-08-13 16:44] LABS: BASO % 0.2 % (0.0-1.0); HEMATOCRIT 39.4 % (36.0-47.0); HEMOGLOBIN 12.9 g/dl (12.0-15.5); LYMPH # 1.3 10^3/uL (1.5-5.0); LYMPH % 24.1 % (24.0-44.0); MEAN CORPUSCULAR HEMOGLOBIN 30.1 pg (27.0-33.0); MEAN CORPUSCULAR HGB CONC 32.7 g/dl (32.0-36.5); MEAN CORPUSCULAR VOLUME 91.8 fl (80.0-96.0); MONO # 0.4 10^3/uL (0.0-0.8); MONO % 6.4 % (2.0-8.0); NEUTROPHILS # 3.8 10^3/uL (1.5-8.5); NEUTROPHILS % 68.8 % (36.0-66.0); PLATELET COUNT, AUTOMATED 228 10^3/uL (150-450); RED BLOOD COUNT 4.29 10^6/uL (4.00-5.40); WHITE BLOOD COUNT 5.5 10^3/uL (4.0-10.0)
== END ==
LOC: M WUC 15:47
PROVIDERS: ATTEND Acupuncturist
DX: Z79.899 Other long term (current) drug therapy (principal)

== ENCOUNTER → 2020-10-24 | Outpatient (REF) | payer MEDICARE, OTHER ==
[2020-10-24 16:46] LABS: BASO % 0.2 % (0.0-1.0); HEMATOCRIT 37.7 % (36.0-47.0); HEMOGLOBIN 12.5 g/dl (12.0-15.5); LYMPH # 1.5 10^3/uL (1.5-5.0); LYMPH % 22.3 % (24.0-44.0); MEAN CORPUSCULAR HEMOGLOBIN 30.3 pg (27.0-33.0); MEAN CORPUSCULAR HGB CONC 33.2 g/dl (32.0-36.5); MEAN CORPUSCULAR VOLUME 91.3 fl (80.0-96.0); MONO # 0.4 10^3/uL (0.0-0.8); MONO % 6.4 % (2.0-8.0); NEUTROPHILS # 4.6 10^3/uL (1.5-8.5); NEUTROPHILS % 69.9 % (36.0-66.0); PLATELET COUNT, AUTOMATED 254 10^3/uL (150-450); RED BLOOD COUNT 4.13 10^6/uL (4.00-5.40); WHITE BLOOD COUNT 6.6 10^3/uL (4.0-10.0)
[2020-10-24 17:20] LABS: ALBUMIN 3.6 GM/DL (3.2-5.2); ALT/SGPT 29 U/L (12-78); BILIRUBIN,TOTAL 0.5 MG/DL (0.2-1.0); BLOOD UREA NITROGEN 14 MG/DL (7-18); CARBON DIOXIDE LEVEL 24 MEQ/L (21-32); CHLORIDE LEVEL 110 MEQ/L (98-107); CHOLESTEROL LEVEL 217 MG/DL (<200); CREATININE FOR GFR 0.82 MG/DL (0.55-1.30); GLOMERULAR FILTRATION RATE > 60.0 (>51); GLUCOSE, FASTING 109 MG/DL (70-100); HDL CHOLESTEROL 50 MG/DL (>40); LDL CHOLESTEROL 127 MG/DL (<100); MAGNESIUM LEVEL 2.2 MG/DL (1.8-2.4); NON-HDL-C 167 MG/DL; POTASSIUM SERUM 4.3 MEQ/L (3.5-5.1); SODIUM LEVEL 142 MEQ/L (136-145); TOTAL PROTEIN 7.3 GM/DL (6.4-8.2); TRIGLYCERIDES LEVEL 202 MG/DL (<150)
== END ==
LOC: M LAB REF 16:19
PROVIDERS: ATTEND Physician Assistant
DX: E83.42 Hypomagnesemia (principal); E87.6 Hypokalemia; E03.9 Hypothyroidism, unspecified; I50.9 Heart failure, unspecified

== ENCOUNTER → 2020-10-29 | Outpatient (CLI) | payer MEDICARE, OTHER ==
[2020-10-29 16:56] LABS: BASO % 0.5 % (0.0-1.0); HEMOGLOBIN 12.9 g/dl (12.0-15.5); LYMPH # 1.5 10^3/uL (1.5-5.0); LYMPH % 26.7 % (24.0-44.0); MEAN CORPUSCULAR HEMOGLOBIN 30.5 pg (27.0-33.0); MEAN CORPUSCULAR HGB CONC 33.1 g/dl (32.0-36.5); MEAN CORPUSCULAR VOLUME 92.2 fl (80.0-96.0); MONO # 0.4 10^3/uL (0.0-0.8); MONO % 6.8 % (2.0-8.0); NEUTROPHILS # 3.7 10^3/uL (1.5-8.5); NEUTROPHILS % 64.1 % (36.0-66.0); PLATELET COUNT, AUTOMATED 255 10^3/uL (150-450); RED BLOOD COUNT 4.23 10^6/uL (4.00-5.40); WHITE BLOOD COUNT 5.7 10^3/uL (4.0-10.0)
== END ==
LOC: M WUC 14:22
PROVIDERS: ATTEND Acupuncturist
DX: Z51.81 Encounter for therapeutic drug level monitoring (principal); Z79.899 Other long term (current) drug therapy

== ENCOUNTER → 2020-11-27 | Outpatient (CLI) | payer MEDICARE, OTHER ==
[2020-11-27 16:20] LABS: BASO % 0.2 % (0.0-1.0); HEMATOCRIT 40.1 % (36.0-47.0); HEMOGLOBIN 13.3 g/dl (12.0-15.5); LYMPH # 1.3 10^3/uL (1.5-5.0); LYMPH % 28.1 % (24.0-44.0); MEAN CORPUSCULAR HEMOGLOBIN 30.5 pg (27.0-33.0); MEAN CORPUSCULAR HGB CONC 33.2 g/dl (32.0-36.5); MONO # 0.4 10^3/uL (0.0-0.8); MONO % 8.2 % (2.0-8.0); NEUTROPHILS % 62.2 % (36.0-66.0); PLATELET COUNT, AUTOMATED 237 10^3/uL (150-450); RED BLOOD COUNT 4.36 10^6/uL (4.00-5.40); WHITE BLOOD COUNT 4.7 10^3/uL (4.0-10.0)
== END ==
LOC: M WUC 14:46
PROVIDERS: ATTEND Acupuncturist
DX: Z51.81 Encounter for therapeutic drug level monitoring (principal); Z79.899 Other long term (current) drug therapy

== ENCOUNTER → 2020-12-07 | Outpatient (CLI) | payer MEDICARE, OTHER ==
[2020-12-07 10:07] LABS: BASO % 0.4 % (0.0-1.0); HEMATOCRIT 38.8 % (36.0-47.0); HEMOGLOBIN 12.8 g/dl (12.0-15.5); LYMPH # 1.6 10^3/uL (1.5-5.0); LYMPH % 33.1 % (24.0-44.0); MEAN CORPUSCULAR HEMOGLOBIN 30.3 pg (27.0-33.0); MEAN CORPUSCULAR VOLUME 91.9 fl (80.0-96.0); MONO # 0.3 10^3/uL (0.0-0.8); MONO % 5.6 % (2.0-8.0); NEUTROPHILS # 2.8 10^3/uL (1.5-8.5); NEUTROPHILS % 59.8 % (36.0-66.0); PLATELET COUNT, AUTOMATED 240 10^3/uL (150-450); RED BLOOD COUNT 4.22 10^6/uL (4.00-5.40); WHITE BLOOD COUNT 4.7 10^3/uL (4.0-10.0)
[2020-12-07 10:32] LABS: HEMOGLOBIN A1c 5.4 %
[2020-12-07 10:36] LABS: ALBUMIN 3.7 GM/DL (3.2-5.2); ALT/SGPT 29 U/L (12-78); BILIRUBIN,TOTAL 0.4 MG/DL (0.2-1.0); BLOOD UREA NITROGEN 19 MG/DL (7-18); CALCIUM LEVEL 8.3 MG/DL (8.5-10.1); CARBON DIOXIDE LEVEL 29 MEQ/L (21-32); CHLORIDE LEVEL 108 MEQ/L (98-107); CHOLESTEROL LEVEL 211 MG/DL (<200); FERRITIN 55 NG/ML (8-252); GLOMERULAR FILTRATION RATE > 60.0 (>51); GLUCOSE, FASTING 99 MG/DL (70-100); HDL CHOLESTEROL 50 MG/DL (>40); IRON (FE) 74 UG/DL (50-170); LDL CHOLESTEROL 131 MG/DL (<100); MAGNESIUM LEVEL 1.9 MG/DL (1.8-2.4); NON-HDL-C 161 MG/DL; PERCENT SATURATION 23.1 % (13.2-45.0); PHOSPHORUS LEVEL 3.9 MG/DL (2.5-4.9); POTASSIUM SERUM 4.3 MEQ/L (3.5-5.1); SODIUM LEVEL 143 MEQ/L (136-145); THYROXINE (T4) 7.6 UG/DL (4.5-12.0); TOTAL IRON BINDING CAPACITY 320 UG/DL (250-450); TRIGLYCERIDES LEVEL 151 MG/DL (<150)
[2020-12-08 11:09] LABS: TOTAL 25(OH) VITAMIN D 26.2 NG/ML (30.0-100.0)
[2020-12-08 11:10] LABS: TOTAL T3 101.9 NG/DL (60.0-181.0)
[2020-12-08 11:11] LABS: VITAMIN B12 LEVEL 290 PG/ML (247-911)
== END ==
LOC: M LAB 09:25
PROVIDERS: ATTEND Acupuncturist
DX: Z79.899 Other long term (current) drug therapy (principal); E55.9 Vitamin D deficiency, unspecified; D50.9 Iron deficiency anemia, unspecified
CPT/HCPCS: 36415; 80053; 80061; 80159; 82306; 82607; 82627; 82728; 83036; 83550; 83735; 84100; 84207; 84436; 84443; 84480; 85025; G0480

== ENCOUNTER → 2021-02-25 | Outpatient (CLI) | payer MEDICARE, OTHER ==
[2021-02-25 16:19] LABS: BASO % 0.5 % (0.0-1.0); EOS % 0.2 % (0.0-3.0); HEMOGLOBIN 13.5 g/dl (12.0-15.5); LYMPH # 1.4 10^3/uL (1.5-5.0); LYMPH % 25.4 % (24.0-44.0); MEAN CORPUSCULAR HEMOGLOBIN 30.7 pg (27.0-33.0); MEAN CORPUSCULAR HGB CONC 32.9 g/dl (32.0-36.5); MEAN CORPUSCULAR VOLUME 93.2 fl (80.0-96.0); MONO # 0.3 10^3/uL (0.0-0.8); MONO % 6.1 % (2.0-8.0); NEUTROPHILS # 3.7 10^3/uL (1.5-8.5); NEUTROPHILS % 66.4 % (36.0-66.0); PLATELET COUNT, AUTOMATED 262 10^3/uL (150-450); WHITE BLOOD COUNT 5.6 10^3/uL (4.0-10.0)
== END ==
LOC: M WUC 12:49
PROVIDERS: ATTEND Acupuncturist
DX: Z79.899 Other long term (current) drug therapy (principal); E55.9 Vitamin D deficiency, unspecified; D50.9 Iron deficiency anemia, unspecified; E53.9 Vitamin B deficiency, unspecified; R79.89 Other specified abnormal findings of blood chemistry

== ENCOUNTER → 2021-04-06 | Outpatient (CLI) | payer MEDICARE, OTHER ==
[2021-04-06 17:49] LABS: BASO % 0.2 % (0.0-1.0); EOS % 0.2 % (0.0-3.0); HEMOGLOBIN 13.5 g/dl (12.0-15.5); LYMPH # 1.9 10^3/uL (1.5-5.0); LYMPH % 31.8 % (24.0-44.0); MEAN CORPUSCULAR HEMOGLOBIN 30.2 pg (27.0-33.0); MEAN CORPUSCULAR HGB CONC 33.8 g/dl (32.0-36.5); MEAN CORPUSCULAR VOLUME 89.5 fl (80.0-96.0); MONO # 0.4 10^3/uL (0.0-0.8); MONO % 5.9 % (2.0-8.0); NEUTROPHILS # 3.7 10^3/uL (1.5-8.5); NEUTROPHILS % 61.2 % (36.0-66.0); PLATELET COUNT, AUTOMATED 247 10^3/uL (150-450); RED BLOOD COUNT 4.47 10^6/uL (4.00-5.40); WHITE BLOOD COUNT 6.1 10^3/uL (4.0-10.0)
== END ==
LOC: M LAB 16:22
PROVIDERS: ATTEND Acupuncturist
DX: Z51.81 Encounter for therapeutic drug level monitoring (principal); Z79.899 Other long term (current) drug therapy

== ENCOUNTER → 2021-05-04 | Outpatient (CLI) | payer MEDICARE, OTHER ==
[2021-05-04 17:53] LABS: BASO % 0.2 % (0.0-1.0); EOS % 0.4 % (0.0-3.0); HEMATOCRIT 39.1 % (36.0-47.0); HEMOGLOBIN 13.2 g/dl (12.0-15.5); LYMPH # 1.5 10^3/uL (1.5-5.0); LYMPH % 30.8 % (24.0-44.0); MEAN CORPUSCULAR HEMOGLOBIN 30.5 pg (27.0-33.0); MEAN CORPUSCULAR HGB CONC 33.8 g/dl (32.0-36.5); MEAN CORPUSCULAR VOLUME 90.3 fl (80.0-96.0); MONO # 0.3 10^3/uL (0.0-0.8); MONO % 6.8 % (2.0-8.0); NEUTROPHILS % 60.6 % (36.0-66.0); PLATELET COUNT, AUTOMATED 233 10^3/uL (150-450); RED BLOOD COUNT 4.33 10^6/uL (4.00-5.40); WHITE BLOOD COUNT 4.9 10^3/uL (4.0-10.0)
[2021-05-04 18:08] LABS: ALBUMIN 3.4 GM/DL (3.2-5.2); ALT/SGPT 26 U/L (12-78); BILIRUBIN,TOTAL 0.3 MG/DL (0.2-1.0); BLOOD UREA NITROGEN 13 MG/DL (7-18); CALCIUM LEVEL 8.6 MG/DL (8.5-10.1); CARBON DIOXIDE LEVEL 28 MEQ/L (21-32); CHLORIDE LEVEL 110 MEQ/L (98-107); CHOLESTEROL LEVEL 240 MG/DL (<200); CHOLESTEROL RISK RATIO 4.444 (<5); CREATININE FOR GFR 0.81 MG/DL (0.55-1.30); FERRITIN 61 NG/ML (8-252); GLOMERULAR FILTRATION RATE > 60.0 (>51); GLUCOSE, FASTING 99 MG/DL (70-100); HDL CHOLESTEROL 54 MG/DL (>40); IRON (FE) 62 UG/DL (50-170); LDL CHOLESTEROL 132 MG/DL (<100); MAGNESIUM LEVEL 2.2 MG/DL (1.8-2.4); NON-HDL-C 186 MG/DL; PERCENT SATURATION 18.6 % (13.2-45.0); PHOSPHORUS LEVEL 3.3 MG/DL (2.5-4.9); POTASSIUM SERUM 4.3 MEQ/L (3.5-5.1); SODIUM LEVEL 143 MEQ/L (136-145); THYROID STIMULATING HORMONE 0.981 uIU/ML (0.358-3.740); THYROXINE (T4) 6.1 UG/DL (4.5-12.0); TOTAL 25(OH) VITAMIN D 27.4 NG/ML (30.0-100.0); TOTAL IRON BINDING CAPACITY 334 UG/DL (250-450); TOTAL PROTEIN 6.9 GM/DL (6.4-8.2); TRIGLYCERIDES LEVEL 269 MG/DL (<150)
[2021-05-04 18:09] LABS: VITAMIN B12 LEVEL 380 PG/ML (247-911)
[2021-05-04 19:57] LABS: HEMOGLOBIN A1c 5.3 %
== END ==
LOC: M LAB 16:07
PROVIDERS: ATTEND Acupuncturist
DX: Z79.899 Other long term (current) drug therapy (principal); E55.9 Vitamin D deficiency, unspecified; D50.9 Iron deficiency anemia, unspecified; E53.9 Vitamin B deficiency, unspecified; R79.89 Other specified abnormal findings of blood chemistry
CPT/HCPCS: 36415; 80053; 80061; 80159; 82306; 82607; 82728; 83036; 83550; 83735; 84100; 84207; 84436; 84443; 84480; 85025; G0480

== ENCOUNTER → 2021-06-10 | Outpatient (CLI) | payer MEDICARE, OTHER ==
[2021-06-10 16:17] LABS: BASO % 0.2 % (0.0-1.0); EOS % 0.3 % (0.0-3.0); HEMATOCRIT 40.8 % (36.0-47.0); HEMOGLOBIN 13.5 g/dl (12.0-15.5); LYMPH # 2.4 10^3/uL (1.5-5.0); LYMPH % 37.6 % (24.0-44.0); MEAN CORPUSCULAR HEMOGLOBIN 30.3 pg (27.0-33.0); MEAN CORPUSCULAR HGB CONC 33.1 g/dl (32.0-36.5); MEAN CORPUSCULAR VOLUME 91.7 fl (80.0-96.0); MONO # 0.5 10^3/uL (0.0-0.8); MONO % 8.1 % (2.0-8.0); NEUTROPHILS # 3.3 10^3/uL (1.5-8.5); NEUTROPHILS % 53.2 % (36.0-66.0); PLATELET COUNT, AUTOMATED 262 10^3/uL (150-450); RED BLOOD COUNT 4.45 10^6/uL (4.00-5.40); WHITE BLOOD COUNT 6.3 10^3/uL (4.0-10.0)
== END ==
LOC: M WUC 14:08
PROVIDERS: ATTEND Acupuncturist
DX: Z51.81 Encounter for therapeutic drug level monitoring (principal); Z79.899 Other long term (current) drug therapy; R79.89 Other specified abnormal findings of blood chemistry; E55.9 Vitamin D deficiency, unspecified; E53.9 Vitamin B deficiency, unspecified

== ENCOUNTER → 2021-07-10 | Outpatient (CLI) | payer MEDICARE, OTHER ==
[2021-07-10 16:22] LABS: BASO % 0.2 % (0.0-1.0); HEMATOCRIT 41.8 % (36.0-47.0); HEMOGLOBIN 14.1 g/dl (12.0-15.5); LYMPH # 1.3 10^3/uL (1.5-5.0); LYMPH % 20.8 % (24.0-44.0); MEAN CORPUSCULAR HEMOGLOBIN 30.4 pg (27.0-33.0); MEAN CORPUSCULAR HGB CONC 33.7 g/dl (32.0-36.5); MEAN CORPUSCULAR VOLUME 90.1 fl (80.0-96.0); MONO # 0.3 10^3/uL (0.0-0.8); MONO % 5.1 % (2.0-8.0); NEUTROPHILS # 4.6 10^3/uL (1.5-8.5); NEUTROPHILS % 73.3 % (36.0-66.0); PLATELET COUNT, AUTOMATED 250 10^3/uL (150-450); RED BLOOD COUNT 4.64 10^6/uL (4.00-5.40); WHITE BLOOD COUNT 6.3 10^3/uL (4.0-10.0)
[2021-07-10 16:58] LABS: ALBUMIN 3.9 GM/DL (3.2-5.2); BILIRUBIN,TOTAL 0.3 MG/DL (0.2-1.0); CALCIUM LEVEL 8.7 MG/DL (8.5-10.1); CREATININE FOR GFR 1.02 MG/DL (0.55-1.30); GLOMERULAR FILTRATION RATE 59.3 (>51); THYROID STIMULATING HORMONE 2.88 uIU/ML (0.358-3.740); THYROXINE (T4) 6.2 UG/DL (4.5-12.0); TOTAL 25(OH) VITAMIN D 26.8 NG/ML (30.0-100.0); TOTAL PROTEIN 7.4 GM/DL (6.4-8.2); TOTAL T3 67.8 NG/DL (60.0-181.0)
== END ==
LOC: M WUC 13:06
PROVIDERS: ATTEND Acupuncturist
DX: E55.9 Vitamin D deficiency, unspecified (principal); Z79.899 Other long term (current) drug therapy; R79.89 Other specified abnormal findings of blood chemistry
CPT/HCPCS: 36415; 80053; 80159; 82306; 84436; 84443; 84480; 85025; G0480

== ENCOUNTER → 2021-08-14 | Outpatient (REF) | payer MEDICARE, OTHER ==
[~2021-08-14] MED LIST: ATEN50TA2; CLOM50CA3; CLON1TAB8; CLOZ25TA3; FAMO40TA3; PRED20TA PO; VENTAER INH
[2021-08-14 16:46] LABS: BASO % 0.2 % (0.0-1.0); EOS % 0.4 % (0.0-3.0); HEMATOCRIT 37.3 % (36.0-47.0); HEMOGLOBIN 12.6 g/dl (12.0-15.5); LYMPH # 1.2 10^3/uL (1.5-5.0); LYMPH % 26.9 % (24.0-44.0); MEAN CORPUSCULAR HEMOGLOBIN 30.5 pg (27.0-33.0); MEAN CORPUSCULAR HGB CONC 33.8 g/dl (32.0-36.5); MEAN CORPUSCULAR VOLUME 90.3 fl (80.0-96.0); MONO # 0.3 10^3/uL (0.0-0.8); MONO % 6.7 % (2.0-8.0); NEUTROPHILS # 2.9 10^3/uL (1.5-8.5); NEUTROPHILS % 64.9 % (36.0-66.0); PLATELET COUNT, AUTOMATED 204 10^3/uL (150-450); RED BLOOD COUNT 4.13 10^6/uL (4.00-5.40); WHITE BLOOD COUNT 4.5 10^3/uL (4.0-10.0)
== END ==
LOC: M LABWUC 15:48
PROVIDERS: ATTEND Acupuncturist
DX: Z79.899 Other long term (current) drug therapy (principal); E55.9 Vitamin D deficiency, unspecified; D50.9 Iron deficiency anemia, unspecified; E53.9 Vitamin B deficiency, unspecified; R79.89 Other specified abnormal findings of blood chemistry

== ENCOUNTER 2021-08-16 17:43 | Emergency (ER) | payer MEDICARE, OTHER ==
[~2021-08-16] VITALS: Ht 167.6 cm; Wt 113.6 kg
[2021-08-16] MEDS ORDERED: CLOZ25TA3 (17:59)
[2021-08-16] MEDS ORDERED: FAMO40TA3 (17:59)
[2021-08-16] MEDS ORDERED: CLOM50CA3 (17:59)
[2021-08-16] MEDS ORDERED: ATEN50TA2 (17:59)
[2021-08-16] MEDS ORDERED: CLON1TAB8 (17:59)
[2021-08-16] MEDS ORDERED: dexameTHASONE 4 MG/ML 1ML VIAL (J1100 PER 1MG) IV ONE (18:20)
[2021-08-16] MEDS: ALBUTEROL 90 MCG/ACT 8GM HFA INHALER INH SCH ×2 (18:35→18:37)
[2021-08-16 19:23] LABS: BASO % 0.4 % (0.0-1.0); EOS % 0.2 % (0.0-3.0); HEMATOCRIT 38.6 % (36.0-47.0); HEMOGLOBIN 12.8 g/dl (12.0-15.5); LYMPH % 21.9 % (24.0-44.0); MEAN CORPUSCULAR HEMOGLOBIN 30.4 pg (27.0-33.0); MEAN CORPUSCULAR HGB CONC 33.2 g/dl (32.0-36.5); MEAN CORPUSCULAR VOLUME 91.7 fl (80.0-96.0); MONO # 0.4 10^3/uL (0.0-0.8); MONO % 7.4 % (2.0-8.0); NEUTROPHILS # 3.2 10^3/uL (1.5-8.5); NEUTROPHILS % 68.8 % (36.0-66.0); PLATELET COUNT, AUTOMATED 190 10^3/uL (150-450); RED BLOOD COUNT 4.21 10^6/uL (4.00-5.40); WHITE BLOOD COUNT 4.7 10^3/uL (4.0-10.0)
[2021-08-16 19:43] LABS: ALBUMIN 3.5 GM/DL (3.2-5.2); ALT/SGPT 41 U/L (12-78); BILIRUBIN,TOTAL 0.4 MG/DL (0.2-1.0); BLOOD UREA NITROGEN 12 MG/DL (7-18); CALCIUM LEVEL 8.5 MG/DL (8.5-10.1); CARBON DIOXIDE LEVEL 29 MEQ/L (21-32); CHLORIDE LEVEL 105 MEQ/L (98-107); CREATININE FOR GFR 0.76 MG/DL (0.55-1.30); FERRITIN 81 NG/ML (8-252); GLOMERULAR FILTRATION RATE > 60.0 (>51); GLUCOSE, FASTING 97 MG/DL (70-100); SODIUM LEVEL 140 MEQ/L (136-145); TOTAL PROTEIN 6.9 GM/DL (6.4-8.2)
[2021-08-16 20:33] LABS: D-DIMER QUANT 2085.39 ng/ml (<500)
[2021-08-16 20:50] VITALS: O2SAT 93
[2021-08-16] MEDS ORDERED: ALBUTEROL SULFATE 2.5 MG/0.5 ML INH NEB SOLN NEB ONE (20:50)
[2021-08-16] MEDS ORDERED: VENTAER INH (20:52)
[2021-08-16] MEDS ORDERED: PRED20TA PO (20:52)
[2021-08-16] MEDS ORDERED: ISOVUE-370 76% 100ML VIAL As Ordered ONE (21:14)
[2021-08-16 21:36] VITALS: BP 123/73
== END 2021-08-16 22:42 | disposition home or self-care (01) ==
LOC: M ED 17:43
DX: R05.9 Cough, unspecified (principal); R06.2 Wheezing; B34.8 Other viral infections of unspecified site; I45.19 Other right bundle-branch block; Z88.0 Allergy status to penicillin; Z88.2 Allergy status to sulfonamides; Z88.8 Allergy status to other drugs, medicaments and biological substances; Z88.1 Allergy status to other antibiotic agents
CPT/HCPCS: 36600; 71045; 71275; 80053; 82728; 82803; 83605; 83735; 84145; 84484; 85025; 85379; 85384; 86140; 87040; 87798; 93005; 94640; 96374; 99284; J1100; Q9967

== ENCOUNTER → 2021-08-28 | Outpatient (CLI) | payer MEDICARE, OTHER ==
[2021-08-28 15:55] LABS: BASO % 0.3 % (0.0-1.0); EOS % 0.1 % (0.0-3.0); HEMOGLOBIN 12.9 g/dl (12.0-15.5); LYMPH # 1.5 10^3/uL (1.5-5.0); LYMPH % 20.1 % (24.0-44.0); MEAN CORPUSCULAR HEMOGLOBIN 30.4 pg (27.0-33.0); MEAN CORPUSCULAR HGB CONC 33.1 g/dl (32.0-36.5); MONO # 0.4 10^3/uL (0.0-0.8); MONO % 5.5 % (2.0-8.0); NEUTROPHILS # 5.5 10^3/uL (1.5-8.5); NEUTROPHILS % 71.9 % (36.0-66.0); PLATELET COUNT, AUTOMATED 205 10^3/uL (150-450); RED BLOOD COUNT 4.24 10^6/uL (4.00-5.40); WHITE BLOOD COUNT 7.6 10^3/uL (4.0-10.0)
[2021-08-28 16:23] LABS: BLOOD UREA NITROGEN 13 MG/DL (7-18); CALCIUM LEVEL 8.3 MG/DL (8.5-10.1); CARBON DIOXIDE LEVEL 28 MEQ/L (21-32); CHLORIDE LEVEL 109 MEQ/L (98-107); CHOLESTEROL LEVEL 180 MG/DL (<200); CREATININE FOR GFR 0.78 MG/DL (0.55-1.30); FERRITIN 77 NG/ML (8-252); GLOMERULAR FILTRATION RATE > 60.0 (>51); GLUCOSE, FASTING 97 MG/DL (70-100); HDL CHOLESTEROL 50 MG/DL (>40); IRON (FE) 55 UG/DL (50-170); LDL CHOLESTEROL 87 MG/DL (<100); MAGNESIUM LEVEL 2.1 MG/DL (1.8-2.4); NON-HDL-C 130 MG/DL; POTASSIUM SERUM 4.2 MEQ/L (3.5-5.1); SODIUM LEVEL 140 MEQ/L (136-145); TRIGLYCERIDES LEVEL 217 MG/DL (<150)
[2021-09-01 00:07] LABS: CLOMIPRAMINE 454 ng/mL (70-200); CLOZAPINE 1 959 ng/mL (350-650); CLOZAPINE 2 564 ng/mL (Not Estab.); CLOZAPINE 3 1523 ng/mL (.); NORCLOMIPRAMINE 280 ng/mL (150-300); TOTAL (CLO+NORCLO) 734 ng/mL (220-500)
== END ==
LOC: M WUC 13:49
PROVIDERS: ATTEND Acupuncturist
DX: Z51.81 Encounter for therapeutic drug level monitoring (principal); Z79.899 Other long term (current) drug therapy; D50.9 Iron deficiency anemia, unspecified; R79.89 Other specified abnormal findings of blood chemistry
CPT/HCPCS: 36415; 80048; 80061; 80159; 82728; 83540; 83735; 85025; G0480

== ENCOUNTER → 2021-12-01 | Outpatient (CLI) | payer MEDICARE, OTHER ==
[2021-12-01 18:19] LABS: BASO % 0.2 % (0.0-1.0); HEMATOCRIT 37.7 % (36.0-47.0); HEMOGLOBIN 12.7 g/dl (12.0-15.5); LYMPH # 1.2 10^3/uL (1.5-5.0); LYMPH % 22.4 % (24.0-44.0); MEAN CORPUSCULAR HEMOGLOBIN 29.5 pg (27.0-33.0); MEAN CORPUSCULAR HGB CONC 33.7 g/dl (32.0-36.5); MEAN CORPUSCULAR VOLUME 87.7 fl (80.0-96.0); MONO # 0.3 10^3/uL (0.0-0.8); MONO % 6.1 % (2.0-8.0); NEUTROPHILS # 3.7 10^3/uL (1.5-8.5); NEUTROPHILS % 70.3 % (36.0-66.0); PLATELET COUNT, AUTOMATED 239 10^3/uL (150-450); WHITE BLOOD COUNT 5.3 10^3/uL (4.0-10.0)
== END ==
LOC: M LAB 16:23
PROVIDERS: ATTEND Acupuncturist
DX: Z51.81 Encounter for therapeutic drug level monitoring (principal); Z79.899 Other long term (current) drug therapy

== ENCOUNTER → 2021-12-30 | Outpatient (CLI) | payer MEDICARE, OTHER ==
[2021-12-30 16:16] LABS: HEMATOCRIT 39.5 % (36.0-47.0); HEMOGLOBIN 13.2 g/dl (12.0-15.5); LYMPH # 1.8 10^3/uL (1.5-5.0); MEAN CORPUSCULAR HEMOGLOBIN 29.7 pg (27.0-33.0); MEAN CORPUSCULAR HGB CONC 33.4 g/dl (32.0-36.5); MONO # 0.5 10^3/uL (0.0-0.8); NEUTROPHILS # 3.8 10^3/uL (1.5-8.5); NEUTROPHILS % 62.3 % (36.0-66.0); PLATELET COUNT, AUTOMATED 272 10^3/uL (150-450); RED BLOOD COUNT 4.44 10^6/uL (4.00-5.40); WHITE BLOOD COUNT 6.1 10^3/uL (4.0-10.0)
== END ==
LOC: M WUC 14:22
PROVIDERS: ATTEND Acupuncturist
DX: Z79.899 Other long term (current) drug therapy (principal)

== ENCOUNTER → 2022-01-29 | Outpatient (REF) | payer MEDICARE, OTHER ==
[2022-01-29 20:38] LABS: BASO % 0.2 % (0.0-1.0); HEMATOCRIT 42.3 % (36.0-47.0); HEMOGLOBIN 13.8 g/dl (12.0-15.5); LYMPH # 1.8 10^3/uL (1.5-5.0); LYMPH % 28.9 % (24.0-44.0); MEAN CORPUSCULAR HEMOGLOBIN 29.5 pg (27.0-33.0); MEAN CORPUSCULAR HGB CONC 32.6 g/dl (32.0-36.5); MEAN CORPUSCULAR VOLUME 90.4 fl (80.0-96.0); MONO # 0.4 10^3/uL (0.0-0.8); MONO % 6.9 % (2.0-8.0); NEUTROPHILS # 3.9 10^3/uL (1.5-8.5); PLATELET COUNT, AUTOMATED 273 10^3/uL (150-450); RED BLOOD COUNT 4.68 10^6/uL (4.00-5.40); WHITE BLOOD COUNT 6.1 10^3/uL (4.0-10.0)
== END ==
LOC: M WUC 20:18
PROVIDERS: ATTEND Acupuncturist
DX: Z79.899 Other long term (current) drug therapy (principal)

== ENCOUNTER → 2022-03-04 | Outpatient (CLI) | payer MEDICARE, OTHER ==
[~2022-03-04] MED LIST changes: -CLOZ25TA3; +CLOZ25TA6
[2022-03-04 21:33] LABS: BASO % 0.3 % (0.0-1.0); HEMATOCRIT 43.5 % (36.0-47.0); LYMPH # 1.8 10^3/uL (1.5-5.0); LYMPH % 23.6 % (24.0-44.0); MEAN CORPUSCULAR HEMOGLOBIN 29.4 pg (27.0-33.0); MEAN CORPUSCULAR HGB CONC 32.2 g/dl (32.0-36.5); MEAN CORPUSCULAR VOLUME 91.4 fl (80.0-96.0); MONO # 0.4 10^3/uL (0.0-0.8); MONO % 5.7 % (2.0-8.0); NEUTROPHILS % 66.3 % (36.0-66.0); PLATELET COUNT, AUTOMATED 296 10^3/uL (150-450); RED BLOOD COUNT 4.76 10^6/uL (4.00-5.40); WHITE BLOOD COUNT 7.6 10^3/uL (4.0-10.0)
== END ==
LOC: M WUC 15:25
PROVIDERS: ATTEND Acupuncturist
DX: Z79.899 Other long term (current) drug therapy (principal)

== ENCOUNTER → 2022-04-06 | Outpatient (REF) | payer MEDICARE, OTHER ==
[2022-04-06 20:18] LABS: BASO % 0.3 % (0.0-1.0); HEMATOCRIT 40.1 % (36.0-47.0); HEMOGLOBIN 13.2 g/dl (12.0-15.5); LYMPH # 1.9 10^3/uL (1.5-5.0); LYMPH % 29.3 % (24.0-44.0); MEAN CORPUSCULAR HEMOGLOBIN 29.6 pg (27.0-33.0); MEAN CORPUSCULAR HGB CONC 32.9 g/dl (32.0-36.5); MEAN CORPUSCULAR VOLUME 89.9 fl (80.0-96.0); MONO # 0.6 10^3/uL (0.0-0.8); MONO % 8.4 % (2.0-8.0); NEUTROPHILS % 60.6 % (36.0-66.0); PLATELET COUNT, AUTOMATED 256 10^3/uL (150-450); RED BLOOD COUNT 4.46 10^6/uL (4.00-5.40); WHITE BLOOD COUNT 6.6 10^3/uL (4.0-10.0)
== END ==
LOC: M LAB REF 19:52
PROVIDERS: ATTEND Acupuncturist
DX: Z79.899 Other long term (current) drug therapy (principal)

== ENCOUNTER → 2022-04-21 | Outpatient (CLI) | payer MEDICARE, OTHER ==
[2022-04-21 16:54] LABS: HEMATOCRIT 39.8 % (36.0-47.0); HEMOGLOBIN 12.7 g/dl (12.0-15.5); LYMPH # 1.4 10^3/uL (1.5-5.0); MEAN CORPUSCULAR HEMOGLOBIN 29.4 pg (27.0-33.0); MEAN CORPUSCULAR HGB CONC 31.9 g/dl (32.0-36.5); MEAN CORPUSCULAR VOLUME 92.1 fl (80.0-96.0); MONO # 0.3 10^3/uL (0.0-0.8); MONO % 6.8 % (2.0-8.0); NEUTROPHILS # 2.7 10^3/uL (1.5-8.5); NEUTROPHILS % 60.7 % (36.0-66.0); PLATELET COUNT, AUTOMATED 239 10^3/uL (150-450); RED BLOOD COUNT 4.32 10^6/uL (4.00-5.40); WHITE BLOOD COUNT 4.4 10^3/uL (4.0-10.0)
[2022-04-21 18:08] LABS: ALBUMIN 3.5 G/DL (3.2-5.2); ALT/SGPT 27 U/L (7.0-40); BILIRUBIN,TOTAL 0.2 MG/DL (0.3-1.2); BLOOD UREA NITROGEN 19 MG/DL (9-23); CALCIUM LEVEL 8.5 MG/DL (8.5-10.1); CARBON DIOXIDE LEVEL 25 MMOL/L (20-31); CHLORIDE LEVEL 104 MMOL/L (98-107); CHOLESTEROL LEVEL 209 MG/DL (<200); CHOLESTEROL RISK RATIO 4.04 (<5); CREATININE FOR GFR 0.74 MG/DL (0.55-1.30); GLOMERULAR FILTRATION RATE > 60.0 (>51); GLUCOSE, FASTING 222 MG/DL (60-100); HDL CHOLESTEROL 51.7 MG/DL (>40); LDL CHOLESTEROL 104.1 MG/DL (<100); NON-HDL-C 157 MG/DL; POTASSIUM SERUM 4.3 MMOL/L (3.5-5.1); SODIUM LEVEL 141 MMOL/L (136-145); THYROID STIMULATING HORMONE 2.898 uIU/ML (0.55-4.78); TOTAL 25(OH) VITAMIN D 20.5 NG/ML (20.0-100.0); TOTAL PROTEIN 6.8 G/DL (5.7-8.2); TRIGLYCERIDES LEVEL 266 MG/DL (<150)
[2022-04-21 19:09] LABS: HEMOGLOBIN A1c 5.5 % (4.0-6.0)
== END ==
LOC: M RAD 10:52
PROVIDERS: ATTEND Nurse Practitioner Family
DX: J96.01 Acute respiratory failure with hypoxia (principal); Z13.228 Encounter for screening for other metabolic disorders; R91.8 Other nonspecific abnormal finding of lung field

== ENCOUNTER → 2022-04-30 | Outpatient (CLI) | payer MEDICARE, OTHER | LOC: M WHC 13:16 | PROVIDERS: ATTEND Obstetrics & Gynecology Female Pelvic Medicine and Reconstructive Surgery | DX: Z12.31 Encounter for screening mammogram for malignant neoplasm of breast (principal) ==

== ENCOUNTER → 2022-04-30 | Outpatient (CLI) | payer MEDICARE, OTHER | LOC: M PLAIMG 13:25 | PROVIDERS: ATTEND Nurse Practitioner Family | DX: R51.9 Headache, unspecified (principal); G31.9 Degenerative disease of nervous system, unspecified; I65.23 Occlusion and stenosis of bilateral carotid arteries; R90.82 White matter disease, unspecified; Z12.31 Encounter for screening mammogram for malignant neoplasm of breast ==

== ENCOUNTER → 2022-05-11 | Outpatient (CLI) | payer MEDICARE, OTHER ==
[2022-05-11 19:36] LABS: BASO % 0.3 % (0.0-1.0); HEMATOCRIT 42.2 % (36.0-47.0); HEMOGLOBIN 13.6 g/dl (12.0-15.5); LYMPH # 1.9 10^3/uL (1.5-5.0); LYMPH % 32.1 % (24.0-44.0); MEAN CORPUSCULAR HEMOGLOBIN 29.3 pg (27.0-33.0); MEAN CORPUSCULAR HGB CONC 32.2 g/dl (32.0-36.5); MEAN CORPUSCULAR VOLUME 90.9 fl (80.0-96.0); MONO # 0.4 10^3/uL (0.0-0.8); MONO % 7.3 % (2.0-8.0); NEUTROPHILS # 3.6 10^3/uL (1.5-8.5); NEUTROPHILS % 59.5 % (36.0-66.0); PLATELET COUNT, AUTOMATED 291 10^3/uL (150-450); RED BLOOD COUNT 4.64 10^6/uL (4.00-5.40); WHITE BLOOD COUNT 6.1 10^3/uL (4.0-10.0)
== END ==
LOC: M WUC 15:41
PROVIDERS: ATTEND Acupuncturist
DX: Z79.899 Other long term (current) drug therapy (principal)

== ENCOUNTER → 2022-06-07 | Outpatient (CLI) | payer MEDICARE, OTHER | LOC: M EKG 16:21 | PROVIDERS: ATTEND Acupuncturist | DX: Z79.899 Other long term (current) drug therapy (principal); I45.19 Other right bundle-branch block ==

== ENCOUNTER → 2022-06-09 | Outpatient (CLI) | payer MEDICARE, OTHER ==
[2022-06-09 19:44] LABS: BASO % 0.3 % (0.0-1.0); EOS # 0.1 10^3/uL (0.0-0.5); EOS % 1.8 % (0.0-3.0); HEMATOCRIT 39.7 % (36.0-47.0); HEMOGLOBIN 13.2 g/dl (12.0-15.5); LYMPH # 2.3 10^3/uL (1.5-5.0); LYMPH % 36.8 % (24.0-44.0); MEAN CORPUSCULAR HGB CONC 33.2 g/dl (32.0-36.5); MEAN CORPUSCULAR VOLUME 90.2 fl (80.0-96.0); MONO # 0.6 10^3/uL (0.0-0.8); MONO % 9.1 % (2.0-8.0); NEUTROPHILS # 3.2 10^3/uL (1.5-8.5); PLATELET COUNT, AUTOMATED 264 10^3/uL (150-450); WHITE BLOOD COUNT 6.3 10^3/uL (4.0-10.0)
== END ==
LOC: M WUC 15:51
PROVIDERS: ATTEND Acupuncturist
DX: Z79.899 Other long term (current) drug therapy (principal)

== ENCOUNTER 2022-07-03 10:46 | Inpatient (IN) | payer MEDICARE, OTHER ==
[~2022-07-03] VITALS: Ht 167.6 cm; Wt 129.3 kg
[~2022-07-03 10:46] MED LIST changes: -ATEN50TA2; +ATEN50TA2 PO; -CLOM50CA3; +CLOM50CA3 PO; -CLON1TAB8; +CLON1TAB8 PO; -CLOZ25TA6; +CLOZ25TA6 PO; -FAMO40TA3; +FAMO40TA3 PO
[2022-07-03] MEDS ORDERED: ADVA115A INH (11:02)
[2022-07-03] MEDS: IPRATROPIUM 0.5MG/ALBUTEROL 2.5MG INH SOL UD 3ML (DUONEB) NEB PRN ×3 (11:36→12:00)
[2022-07-03 11:48] LABS: BASO % 0.2 % (0.0-1.0); HEMATOCRIT 40.4 % (36.0-47.0); HEMOGLOBIN 13.4 g/dl (12.0-15.5); LYMPH # 0.3 10^3/uL (1.5-5.0); LYMPH % 2.7 % (24.0-44.0); MEAN CORPUSCULAR HGB CONC 33.2 g/dl (32.0-36.5); MEAN CORPUSCULAR VOLUME 90.4 fl (80.0-96.0); MONO # 0.5 10^3/uL (0.0-0.8); MONO % 4.7 % (2.0-8.0); NEUTROPHILS # 9.7 10^3/uL (1.5-8.5); NEUTROPHILS % 91.6 % (36.0-66.0); PLATELET COUNT, AUTOMATED 222 10^3/uL (150-450); RED BLOOD COUNT 4.47 10^6/uL (4.00-5.40); WHITE BLOOD COUNT 10.5 10^3/uL (4.0-10.0)
[2022-07-03 11:49] LABS: ABG BASE EXCESS 0.6 (-2.0-2.0); ABG HCO3 24.5 MEQ/L (22.0-26.0); ABG O2 SATURATION 93.4 % (95.0-99.0); ABG PARTIAL PRESSURE CO2 37.3 mmHg (35.0-45.0); ABG PARTIAL PRESSURE O2 64.1 mmHg (75.0-100.0); ABG STANDARD HCO3 24.9 MEQ/L (22.0-26.0); ABG TOTAL CO2 25.7 MEQ/L (22.0-29.0); ABG pH (ARTERIAL) 7.436 UNITS (7.350-7.450)
[2022-07-03 12:14] LABS: ALBUMIN 3.4 G/DL (3.2-5.2); ALKALINE PHOSPHATASE 145 U/L (46-116); ALT/SGPT 36 U/L (7.0-40); AST/SGOT 50 U/L (<34); BILIRUBIN,DIRECT 0.2 MG/DL (<0.4); BILIRUBIN,TOTAL 0.7 MG/DL (0.3-1.2); BLOOD UREA NITROGEN 17 MG/DL (9-23); CALCIUM LEVEL 8.3 MG/DL (8.5-10.1); CARBON DIOXIDE LEVEL 24 MMOL/L (20-31); CHLORIDE LEVEL 104 MMOL/L (98-107); CK-MB VALUE MASS 1.4 NG/ML (<3.6); CREATININE FOR GFR 0.76 MG/DL (0.55-1.30); GLOMERULAR FILTRATION RATE > 60.0 (>51); GLUCOSE, FASTING 175 MG/DL (60-100); POTASSIUM SERUM 4.5 MMOL/L (3.5-5.1); SODIUM LEVEL 139 MMOL/L (136-145); THYROID STIMULATING HORMONE 0.451 uIU/ML (0.55-4.78); TOTAL PROTEIN 7.1 G/DL (5.7-8.2)
[2022-07-03 12:15] LABS: CPK CREATINE PHOSPHOKINASE 145 U/L (34-145); MB/CK RELATIVE INDEX 0.96 (< OR =4)
[2022-07-03] MEDS ORDERED: ISOVUE-370 76% 100ML VIAL As Ordered ONE (12:30)
[2022-07-03] MEDS ORDERED: ACETAMINOPHEN TAB 650MG DOSE (2X325MG) PO PRN (15:05)
[2022-07-03] MEDS ORDERED: IPRATROPIUM 0.5MG/ALBUTEROL 2.5MG INH SOL UD 3ML (DUONEB) NEB PRN (15:05)
[2022-07-03] MEDS ORDERED: atenoloL 50 MG TAB PO SCH (15:20)
[2022-07-03] MEDS: IPRATROPIUM 0.5MG/ALBUTEROL 2.5MG INH SOL UD 3ML (DUONEB) NEB SCH ×3 (16:00→23:40)
[2022-07-03] MEDS ORDERED: CLOZ100T5 PO (16:27)
[2022-07-03] MEDS ORDERED: ALBU8.5H INH (16:27)
[2022-07-03] MEDS ORDERED: VITA200032 PO (16:30)
[2022-07-03] MEDS ORDERED: HOME MED LIST COMPLETE! XX SCH (16:30)
[2022-07-03] MEDS ORDERED: ATOR1TAB21 PO (16:30)
[2022-07-03] MEDS ORDERED: ROPI3TAB3 PO (16:30)
[2022-07-03] MEDS ORDERED: MIRT1TAB16 PO (16:30)
[2022-07-03] MEDS ORDERED: LEVO100T5 PO (16:30)
[2022-07-03] MEDS: AZITHROMYCIN 250MG TABLET PO SCH (16:44)
[2022-07-03 17:30] VITALS: BP 141/70
[2022-07-03] MEDS: atenoloL 25 MG TAB PO SCH (17:47)
[2022-07-03] MEDS: guaiFENesin 200 MG TAB PO SCH (19:04)
[2022-07-03] MEDS ORDERED: LR 1,000 ML IV ONE (19:30)
[2022-07-03 20:07] VITALS: BP 132/69
[2022-07-03] MEDS: ADVAIR HFA 115/21MCG INHALER INH SCH (20:16)
[2022-07-03 20:32] VITALS: O2SAT 94
[2022-07-03] MEDS: rOPINIRole 1MG TAB PO SCH (20:45)
[2022-07-03] MEDS: ATORVASTATIN 20 MG TAB PO SCH (20:46)
[2022-07-03] MEDS: FAMOTIDINE 20 MG TAB PO SCH (20:46)
[2022-07-04] VITALS (7 sets, daily range): BP systolic 103–158; BP diastolic 56–74
[2022-07-04] MEDS: guaiFENesin 200 MG TAB PO SCH ×4 (00:02→17:25)
[2022-07-04] MEDS: clonazePAM 1 MG TAB PO PRN ×4 (00:35→22:07)
[2022-07-04] MEDS: IPRATROPIUM 0.5MG/ALBUTEROL 2.5MG INH SOL UD 3ML (DUONEB) NEB SCH ×6 (03:30→23:18)
[2022-07-04 04:35] LABS: HEMATOCRIT 35.2 % (36.0-47.0); HEMOGLOBIN 11.8 g/dl (12.0-15.5); MEAN CORPUSCULAR HEMOGLOBIN 30.4 pg (27.0-33.0); MEAN CORPUSCULAR HGB CONC 33.5 g/dl (32.0-36.5); MEAN CORPUSCULAR VOLUME 90.7 fl (80.0-96.0); PLATELET COUNT, AUTOMATED 208 10^3/uL (150-450); RED BLOOD COUNT 3.88 10^6/uL (4.00-5.40); WHITE BLOOD COUNT 13.6 10^3/uL (4.0-10.0)
[2022-07-04 05:07] LABS: ALKALINE PHOSPHATASE 116 U/L (46-116); ALT/SGPT 32 U/L (7.0-40); AST/SGOT 30 U/L (<34); BILIRUBIN,TOTAL 0.5 MG/DL (0.3-1.2); BLOOD UREA NITROGEN 16 MG/DL (9-23); CALCIUM LEVEL 9.2 MG/DL (8.5-10.1); CARBON DIOXIDE LEVEL 25 MMOL/L (20-31); CHLORIDE LEVEL 105 MMOL/L (98-107); CREATININE FOR GFR 0.76 MG/DL (0.55-1.30); GLOMERULAR FILTRATION RATE > 60.0 (>51); GLUCOSE, FASTING 186 MG/DL (60-100); MAGNESIUM LEVEL 1.8 MG/DL (1.8-2.4); POTASSIUM SERUM 3.9 MMOL/L (3.5-5.1); SODIUM LEVEL 140 MMOL/L (136-145); TOTAL PROTEIN 6.2 G/DL (5.7-8.2)
[2022-07-04] MEDS: LEVOTHYROXINE 100MCG TABLET (0.1MG) PO SCH (06:10)
[2022-07-04] MEDS: ADVAIR HFA 115/21MCG INHALER INH SCH ×2 (07:33→19:14)
[2022-07-04] MEDS ORDERED: LIDOCAINE 2% 100MG/5ML SDV (FOR ANES.) As Ordered ONE (07:37)
[2022-07-04] MEDS ORDERED: ROCURONIUM BROMIDE 50MG/5ML VIAL As Ordered ONE (07:37)
[2022-07-04] MEDS ORDERED: propofoL 200 MG/20 ML VIAL As Ordered ONE (07:37)
[2022-07-04] MEDS ORDERED: ONDANSETRON 4MG 2ML VIAL As Ordered ONE (07:38)
[2022-07-04] MEDS ORDERED: THROMBIN 5,000 UNITS VIAL As Ordered ONE (07:51)
[2022-07-04] MEDS ORDERED: CETACAINE SPRAY 5GM As Ordered ONE (07:51)
[2022-07-04] MEDS: SODIUM CHLORIDE HYPERTONIC 3% 15ML NEB SOL INH SCH ×5 (08:00→23:18)
[2022-07-04] MEDS: FAMOTIDINE 20 MG TAB PO SCH ×2 (08:20→20:29)
[2022-07-04] MEDS: methylPREDNISolone 40MG 1ML VIAL IV SCH ×2 (08:20→17:25)
[2022-07-04] MEDS: AZITHROMYCIN 250MG TABLET PO SCH (08:20)
[2022-07-04] MEDS: atenoloL 25 MG TAB PO SCH (08:21)
[2022-07-04] MEDS: cefTRIAXone SOD 2 GM in D5W MINI-BAG PLUS 50 ML IV SCH (15:36)
[2022-07-04] MEDS: FUROSEMIDE 20 MG TAB PO SCH (15:36)
[2022-07-04] MEDS: ENOXAPARIN 40MG/0.4ML SYRINGE (J1650 PER 10MG) SC SCH (20:29)
[2022-07-04] MEDS: ATORVASTATIN 20 MG TAB PO SCH (20:29)
[2022-07-04] MEDS: rOPINIRole 1MG TAB PO SCH (20:29)
[2022-07-05] MEDS: guaiFENesin 200 MG TAB PO SCH ×5 (00:11→23:33)
[2022-07-05] MEDS: methylPREDNISolone 40MG 1ML VIAL IV SCH ×3 (00:11→16:29)
[2022-07-05] MEDS: IPRATROPIUM 0.5MG/ALBUTEROL 2.5MG INH SOL UD 3ML (DUONEB) NEB SCH ×6 (03:41→23:08)
[2022-07-05] MEDS: SODIUM CHLORIDE HYPERTONIC 3% 15ML NEB SOL INH SCH ×6 (03:41→23:08)
[2022-07-05 03:45] VITALS: BP 132/74
[2022-07-05] MEDS: LEVOTHYROXINE 100MCG TABLET (0.1MG) PO SCH (05:14)
[2022-07-05 05:26] LABS: HEMATOCRIT 34.7 % (36.0-47.0); HEMOGLOBIN 11.3 g/dl (12.0-15.5); MEAN CORPUSCULAR HEMOGLOBIN 29.8 pg (27.0-33.0); MEAN CORPUSCULAR HGB CONC 32.6 g/dl (32.0-36.5); MEAN CORPUSCULAR VOLUME 91.6 fl (80.0-96.0); PLATELET COUNT, AUTOMATED 210 10^3/uL (150-450); RED BLOOD COUNT 3.79 10^6/uL (4.00-5.40); WHITE BLOOD COUNT 12.2 10^3/uL (4.0-10.0)
[2022-07-05 05:48] LABS: ALBUMIN 2.9 G/DL (3.2-5.2); ALKALINE PHOSPHATASE 134 U/L (46-116); ALT/SGPT 31 U/L (7.0-40); AST/SGOT 30 U/L (<34); BILIRUBIN,TOTAL 0.3 MG/DL (0.3-1.2); BLOOD UREA NITROGEN 18 MG/DL (9-23); CALCIUM LEVEL 8.9 MG/DL (8.5-10.1); CARBON DIOXIDE LEVEL 26 MMOL/L (20-31); CHLORIDE LEVEL 105 MMOL/L (98-107); CREATININE FOR GFR 0.67 MG/DL (0.55-1.30); GLOMERULAR FILTRATION RATE > 60.0 (>51); GLUCOSE, FASTING 309 MG/DL (60-100); MAGNESIUM LEVEL 2.2 MG/DL (1.8-2.4); POTASSIUM SERUM 4.6 MMOL/L (3.5-5.1); SODIUM LEVEL 138 MMOL/L (136-145); TOTAL PROTEIN 6.2 G/DL (5.7-8.2)
[2022-07-05 06:20] LABS: LYMPHOCYTES 7 % (16-44); NEUTROPHILS 89 % (28-66)
[2022-07-05 06:21] LABS: PLATELET ESTIMATE NORMAL (NORMAL)
[2022-07-05 07:55] VITALS: BP 133/67
[2022-07-05] MEDS: ADVAIR HFA 115/21MCG INHALER INH SCH ×2 (08:26→19:44)
[2022-07-05] MEDS: FAMOTIDINE 20 MG TAB PO SCH ×2 (09:52→20:38)
[2022-07-05] MEDS: ENOXAPARIN 40MG/0.4ML SYRINGE (J1650 PER 10MG) SC SCH ×2 (09:52→20:37)
[2022-07-05] MEDS: atenoloL 25 MG TAB PO SCH (09:53)
[2022-07-05] MEDS: AZITHROMYCIN 250MG TABLET PO SCH (09:53)
[2022-07-05] MEDS: clonazePAM 1 MG TAB PO PRN ×3 (09:53→23:33)
[2022-07-05] MEDS: FUROSEMIDE 20 MG TAB PO SCH (09:54)
[2022-07-05 11:40] VITALS: BP 138/71
[2022-07-05 15:35] VITALS: BP 128/71
[2022-07-05] MEDS: cefTRIAXone SOD 2 GM in D5W MINI-BAG PLUS 50 ML IV SCH (16:30)
[2022-07-05 20:10] VITALS: BP 129/57
[2022-07-05] MEDS: rOPINIRole 1MG TAB PO SCH (20:38)
[2022-07-05] MEDS: ATORVASTATIN 20 MG TAB PO SCH (20:38)
[2022-07-06] VITALS (13 sets, daily range): BP systolic 132–139; BP diastolic 63–73; O2SAT 88–96
[2022-07-06] MEDS: methylPREDNISolone 40MG 1ML VIAL IV SCH ×2 (00:04→09:05)
[2022-07-06] MEDS: IPRATROPIUM 0.5MG/ALBUTEROL 2.5MG INH SOL UD 3ML (DUONEB) NEB SCH ×3 (03:21→11:20)
[2022-07-06] MEDS: SODIUM CHLORIDE HYPERTONIC 3% 15ML NEB SOL INH SCH ×3 (04:00→11:20)
[2022-07-06] MEDS: guaiFENesin 200 MG TAB PO SCH ×2 (05:08→12:49)
[2022-07-06] MEDS: LEVOTHYROXINE 100MCG TABLET (0.1MG) PO SCH (05:08)
[2022-07-06 05:25] LABS: HEMATOCRIT 34.4 % (36.0-47.0); HEMOGLOBIN 11.2 g/dl (12.0-15.5); MEAN CORPUSCULAR HEMOGLOBIN 29.8 pg (27.0-33.0); MEAN CORPUSCULAR HGB CONC 32.6 g/dl (32.0-36.5); MEAN CORPUSCULAR VOLUME 91.5 fl (80.0-96.0); PLATELET COUNT, AUTOMATED 253 10^3/uL (150-450); RED BLOOD COUNT 3.76 10^6/uL (4.00-5.40)
[2022-07-06 05:46] LABS: ATYPICAL LYMPH 1 % (0-5); LYMPHOCYTES 4 % (16-44); MONOCYTES 3 % (0-5); NEUTROPHILS 91 % (28-66); PLATELET ESTIMATE NORMAL (NORMAL)
[2022-07-06 05:51] LABS: ALBUMIN 2.9 G/DL (3.2-5.2); ALKALINE PHOSPHATASE 137 U/L (46-116); ALT/SGPT 63 U/L (7.0-40); AST/SGOT 46 U/L (<34); BILIRUBIN,TOTAL 0.3 MG/DL (0.3-1.2); BLOOD UREA NITROGEN 22 MG/DL (9-23); CALCIUM LEVEL 8.6 MG/DL (8.5-10.1); CARBON DIOXIDE LEVEL 27 MMOL/L (20-31); CHLORIDE LEVEL 103 MMOL/L (98-107); CREATININE FOR GFR 0.66 MG/DL (0.55-1.30); GLOMERULAR FILTRATION RATE > 60.0 (>51); GLUCOSE, FASTING 337 MG/DL (60-100); MAGNESIUM LEVEL 1.9 MG/DL (1.8-2.4); POTASSIUM SERUM 4.5 MMOL/L (3.5-5.1); SODIUM LEVEL 139 MMOL/L (136-145); TOTAL PROTEIN 6.5 G/DL (5.7-8.2)
[2022-07-06] MEDS: ADVAIR HFA 115/21MCG INHALER INH SCH (08:03)
[2022-07-06] MEDS: ENOXAPARIN 40MG/0.4ML SYRINGE (J1650 PER 10MG) SC SCH (09:06)
[2022-07-06] MEDS: FUROSEMIDE 20 MG TAB PO SCH (09:06)
[2022-07-06] MEDS: FAMOTIDINE 20 MG TAB PO SCH (09:06)
[2022-07-06] MEDS: atenoloL 25 MG TAB PO SCH (09:07)
[2022-07-06] MEDS: clonazePAM 1 MG TAB PO PRN (10:08)
[2022-07-06] MEDS ORDERED: LEVO1TAB40 PO (12:21)
[2022-07-06] MEDS ORDERED: ALBU8.5H INH (12:21)
[2022-07-06] MEDS ORDERED: ADVA115A INH (12:21)
[2022-07-06] MEDS ORDERED: PRED20TA PO (12:21)
[2022-07-06] MEDS ORDERED: GUAI20TA PO (12:21)
[2022-07-06] MEDS ORDERED: LevoFLOXacin 750 MG TABLET PO SCH (13:00)
== END 2022-07-06 15:49 | disposition home or self-care (01) | DRG 189 ==
LOC: M ED 10:46 → M ED INP 15:01 → ENRESERV 16:26 → M PCU 17:17
PROVIDERS: ADMIT Family Medicine; ATTEND Family Medicine
DX: J96.01 Acute respiratory failure with hypoxia (principal); J45.901 Unspecified asthma with (acute) exacerbation; J84.116 Cryptogenic organizing pneumonia; J82.81 Chronic eosinophilic pneumonia; E66.9 Obesity, unspecified; G47.33 Obstructive sleep apnea (adult) (pediatric); E78.5 Hyperlipidemia, unspecified; F32.A Depression, unspecified; F41.9 Anxiety disorder, unspecified; E03.9 Hypothyroidism, unspecified; F42.9 Obsessive-compulsive disorder, unspecified; Z79.890 Hormone replacement therapy; Z86.16 Personal history of COVID-19; Z79.899 Other long term (current) drug therapy; Z88.0 Allergy status to penicillin; Z88.1 Allergy status to other antibiotic agents; Z88.2 Allergy status to sulfonamides; Z88.6 Allergy status to analgesic agent; Z88.8 Allergy status to other drugs, medicaments and biological substances; Z91.199 Patient's noncompliance with other medical treatment and regimen due to unspecified reason

== ENCOUNTER → 2022-07-14 | Outpatient (CLI) | payer MEDICARE, OTHER ==
[~2022-07-14] MED LIST changes: +ADVA115A INH; +ALBU8.5H INH; +ATOR1TAB21 PO; +CLOZ100T5 PO; +GUAI20TA PO; +LEVO100T5 PO; +LEVO1TAB40 PO; +MIRT1TAB16 PO; +ROPI3TAB3 PO; +VITA200032 PO
[2022-07-14 16:31] LABS: BASO % 0.4 % (0.0-1.0); HEMATOCRIT 41.4 % (36.0-47.0); HEMOGLOBIN 13.9 g/dl (12.0-15.5); LYMPH # 2.7 10^3/uL (1.5-5.0); LYMPH % 26.4 % (24.0-44.0); MEAN CORPUSCULAR HGB CONC 33.6 g/dl (32.0-36.5); MEAN CORPUSCULAR VOLUME 89.4 fl (80.0-96.0); MONO # 0.6 10^3/uL (0.0-0.8); MONO % 5.7 % (2.0-8.0); NEUTROPHILS # 6.6 10^3/uL (1.5-8.5); NEUTROPHILS % 65.1 % (36.0-66.0); PLATELET COUNT, AUTOMATED 257 10^3/uL (150-450); RED BLOOD COUNT 4.63 10^6/uL (4.00-5.40); WHITE BLOOD COUNT 10.1 10^3/uL (4.0-10.0)
== END ==
LOC: M WUC 13:42
PROVIDERS: ATTEND Acupuncturist
DX: Z79.899 Other long term (current) drug therapy (principal)

== ENCOUNTER → 2022-08-03 | Outpatient (CLI) | payer MEDICARE, OTHER | LOC: M RAD 12:27 | PROVIDERS: ATTEND Internal Medicine Pulmonary Disease | DX: J98.11 Atelectasis (principal); K80.00 Calculus of gallbladder with acute cholecystitis without obstruction ==

== ENCOUNTER → 2022-08-10 | Outpatient (CLI) | payer MEDICARE, OTHER ==
[2022-08-10 17:09] LABS: BASO % 0.7 % (0.0-1.0); HEMATOCRIT 37.1 % (36.0-47.0); HEMOGLOBIN 12.4 g/dl (12.0-15.5); LYMPH # 1.6 10^3/uL (1.5-5.0); LYMPH % 28.4 % (24.0-44.0); MEAN CORPUSCULAR HEMOGLOBIN 30.7 pg (27.0-33.0); MEAN CORPUSCULAR HGB CONC 33.4 g/dl (32.0-36.5); MEAN CORPUSCULAR VOLUME 91.8 fl (80.0-96.0); MONO # 0.5 10^3/uL (0.0-0.8); NEUTROPHILS # 3.3 10^3/uL (1.5-8.5); NEUTROPHILS % 58.7 % (36.0-66.0); PLATELET COUNT, AUTOMATED 245 10^3/uL (150-450); RED BLOOD COUNT 4.04 10^6/uL (4.00-5.40); WHITE BLOOD COUNT 5.7 10^3/uL (4.0-10.0)
== END ==
LOC: M WUC 14:00
PROVIDERS: ATTEND Acupuncturist
DX: Z79.899 Other long term (current) drug therapy (principal)

== ENCOUNTER → 2022-08-16 | Outpatient (REF) | payer MEDICARE, OTHER ==
[2022-08-16 17:52] LABS: CHOLESTEROL RISK RATIO 2.79 (<5); HDL CHOLESTEROL 52.2 MG/DL (>40); NON-HDL-C 93.8 MG/DL
== END ==
LOC: M LAB REF 16:49
PROVIDERS: ATTEND Nurse Practitioner Family
DX: E78.5 Hyperlipidemia, unspecified (principal)

== ENCOUNTER → 2022-08-23 | Outpatient (REF) | payer MEDICARE, OTHER ==
[2022-08-23 17:18] LABS: BASO % 0.2 % (0.0-1.0); HEMATOCRIT 38.3 % (36.0-47.0); HEMOGLOBIN 12.7 g/dl (12.0-15.5); LYMPH # 1.2 10^3/uL (1.5-5.0); LYMPH % 24.4 % (24.0-44.0); MEAN CORPUSCULAR HEMOGLOBIN 29.7 pg (27.0-33.0); MEAN CORPUSCULAR HGB CONC 33.2 g/dl (32.0-36.5); MEAN CORPUSCULAR VOLUME 89.7 fl (80.0-96.0); MONO # 0.3 10^3/uL (0.0-0.8); MONO % 6.4 % (2.0-8.0); NEUTROPHILS # 3.2 10^3/uL (1.5-8.5); NEUTROPHILS % 65.9 % (36.0-66.0); PLATELET COUNT, AUTOMATED 229 10^3/uL (150-450); RED BLOOD COUNT 4.27 10^6/uL (4.00-5.40); WHITE BLOOD COUNT 4.8 10^3/uL (4.0-10.0)
[2022-08-23 17:20] LABS: ALBUMIN 3.6 G/DL (3.2-5.2); ALKALINE PHOSPHATASE 136 U/L (46-116); ALT/SGPT 17 U/L (7.0-40); AST/SGOT 28 U/L (<34); BILIRUBIN,TOTAL 0.6 MG/DL (0.3-1.2); BLOOD UREA NITROGEN 12 MG/DL (9-23); CALCIUM LEVEL 8.2 MG/DL (8.5-10.1); CARBON DIOXIDE LEVEL 25 MMOL/L (20-31); CHLORIDE LEVEL 108 MMOL/L (98-107); CREATININE FOR GFR 0.62 MG/DL (0.55-1.30); GLOMERULAR FILTRATION RATE > 60.0 (>51); GLUCOSE, FASTING 156 MG/DL (60-100); POTASSIUM SERUM 4.4 MMOL/L (3.5-5.1); SODIUM LEVEL 140 MMOL/L (136-145); TOTAL PROTEIN 6.7 G/DL (5.7-8.2)
[2022-08-23 17:33] LABS: THYROID STIMULATING HORMONE 0.778 uIU/ML (0.55-4.78)
== END ==
LOC: M LAB REF 16:19
PROVIDERS: ATTEND Nurse Practitioner Family
DX: Z00.00 Encounter for general adult medical examination without abnormal findings (principal); Z79.899 Other long term (current) drug therapy

== ENCOUNTER → 2022-08-23 | Outpatient (CLI) | payer MEDICARE, OTHER | LOC: M RAD 15:23 | PROVIDERS: ATTEND Nurse Practitioner Family | DX: J18.9 Pneumonia, unspecified organism (principal); R06.00 Dyspnea, unspecified; Z79.899 Other long term (current) drug therapy ==

== ENCOUNTER → 2022-08-25 | Outpatient (CLI) | payer MEDICARE, OTHER | LOC: M CARPUL 14:50 | PROVIDERS: ATTEND Internal Medicine Critical Care Medicine | DX: R06.00 Dyspnea, unspecified (principal); I51.7 Cardiomegaly ==

== ENCOUNTER → 2022-10-04 | Outpatient (CLI) | payer MEDICARE, OTHER ==
[2022-10-04 17:59] LABS: BASO % 0.2 % (0.0-1.0); HEMATOCRIT 37.3 % (36.0-47.0); HEMOGLOBIN 12.4 g/dl (12.0-15.5); LYMPH # 1.4 10^3/uL (1.5-5.0); LYMPH % 33.5 % (24.0-44.0); MEAN CORPUSCULAR HGB CONC 33.2 g/dl (32.0-36.5); MEAN CORPUSCULAR VOLUME 90.3 fl (80.0-96.0); MONO # 0.3 10^3/uL (0.0-0.8); MONO % 7.5 % (2.0-8.0); NEUTROPHILS # 2.4 10^3/uL (1.5-8.5); NEUTROPHILS % 57.6 % (36.0-66.0); PLATELET COUNT, AUTOMATED 225 10^3/uL (150-450); RED BLOOD COUNT 4.13 10^6/uL (4.00-5.40); WHITE BLOOD COUNT 4.2 10^3/uL (4.0-10.0)
== END ==
LOC: M WUC 11:46
PROVIDERS: ATTEND Acupuncturist
DX: Z79.899 Other long term (current) drug therapy (principal)

== ENCOUNTER → 2022-10-22 | Outpatient (CLI) | payer MEDICARE, OTHER ==
[~2022-10-22] MED LIST changes: +BARIUM SULFATE 700 MG TABLET (E-Z-DISK) As Ordered ONE; +E-Z-PAQUE 96% w/w SUSP 176GM BTL As Ordered ONE; +VARIBAR NECTAR 40% w/v 240ML SUSP BTL As Ordered ONE; +VARIBAR PUDDING 40% w/v 230ML TUBE As Ordered ONE
== END ==
LOC: M RAD 10:37
PROVIDERS: ATTEND Nurse Practitioner Family
DX: R13.10 Dysphagia, unspecified (principal)

== ENCOUNTER → 2022-11-01 | Outpatient (CLI) | payer MEDICARE, OTHER ==
[~2022-11-01] MED LIST changes: -BARIUM SULFATE 700 MG TABLET (E-Z-DISK) As Ordered ONE; -E-Z-PAQUE 96% w/w SUSP 176GM BTL As Ordered ONE; -VARIBAR NECTAR 40% w/v 240ML SUSP BTL As Ordered ONE; -VARIBAR PUDDING 40% w/v 230ML TUBE As Ordered ONE
[2022-11-01 14:21] LABS: BASO % 0.2 % (0.0-1.0); HEMATOCRIT 38.9 % (36.0-47.0); HEMOGLOBIN 12.7 g/dl (12.0-15.5); LYMPH # 1.2 10^3/uL (1.5-5.0); LYMPH % 27.3 % (24.0-44.0); MEAN CORPUSCULAR HEMOGLOBIN 29.5 pg (27.0-33.0); MEAN CORPUSCULAR HGB CONC 32.6 g/dl (32.0-36.5); MEAN CORPUSCULAR VOLUME 90.5 fl (80.0-96.0); MONO # 0.2 10^3/uL (0.0-0.8); NEUTROPHILS # 2.9 10^3/uL (1.5-8.5); NEUTROPHILS % 66.1 % (36.0-66.0); PLATELET COUNT, AUTOMATED 226 10^3/uL (150-450); WHITE BLOOD COUNT 4.4 10^3/uL (4.0-10.0)
== END ==
LOC: M WUC 10:08
PROVIDERS: ATTEND Acupuncturist
DX: Z79.899 Other long term (current) drug therapy (principal)

== ENCOUNTER → 2022-11-01 | Outpatient (CLI) | payer MEDICARE, OTHER ==
[~2022-11-01] MED LIST changes: +GLYC1TAB18 PO; +K-TA10TA PO; +PEPC40TA12 PO; +RA N1TAB PO; +ROPI4TAB21 PO
[2022-11-01 14:28] LABS: ERYTHROCYTE SEDIMENTATION RATE 25 mm/hr (0-30)
[2022-11-01 14:30] LABS: BASO % 0.4 % (0.0-1.0); HEMATOCRIT 38.6 % (36.0-47.0); HEMOGLOBIN 12.8 g/dl (12.0-15.5); LYMPH # 1.3 10^3/uL (1.5-5.0); MEAN CORPUSCULAR HGB CONC 33.2 g/dl (32.0-36.5); MEAN CORPUSCULAR VOLUME 90.4 fl (80.0-96.0); MONO # 0.3 10^3/uL (0.0-0.8); MONO % 5.6 % (2.0-8.0); NEUTROPHILS # 2.9 10^3/uL (1.5-8.5); NEUTROPHILS % 64.7 % (36.0-66.0); PLATELET COUNT, AUTOMATED 241 10^3/uL (150-450); RED BLOOD COUNT 4.27 10^6/uL (4.00-5.40); WHITE BLOOD COUNT 4.5 10^3/uL (4.0-10.0)
[2022-11-01 14:35] LABS: HEMOGLOBIN A1c 6.4 % (4.0-6.0)
[2022-11-01 14:48] LABS: ALBUMIN 3.6 G/DL (3.2-5.2); ALKALINE PHOSPHATASE 142 U/L (46-116); ALT/SGPT 27 U/L (7.0-40); AST/SGOT 19 U/L (<34); BILIRUBIN,TOTAL 0.5 MG/DL (0.3-1.2); BLOOD UREA NITROGEN 15 MG/DL (9-23); CALCIUM LEVEL 7.8 MG/DL (8.5-10.1); CARBON DIOXIDE LEVEL 27 MMOL/L (20-31); CHLORIDE LEVEL 105 MMOL/L (98-107); CREATININE FOR GFR 0.85 MG/DL (0.55-1.30); GLOMERULAR FILTRATION RATE > 60.0 (>51); GLUCOSE, FASTING 169 MG/DL (60-100); POTASSIUM SERUM 4.1 MMOL/L (3.5-5.1); RHEUMATOID FACTOR QUANT < 3.5 IU/ML (<14); SODIUM LEVEL 141 MMOL/L (136-145); TOTAL PROTEIN 6.7 G/DL (5.7-8.2)
[2022-11-01 14:53] LABS: FOLATE 12.64 NG/ML (>5.4); VITAMIN B12 LEVEL 359 PG/ML (211-911)
[2022-11-05 06:51] LABS: DRVV SCREEN 39.7 SEC
[2022-11-05 06:56] LABS: PTT LUPUS TYPE ANTICOAG SCREEN 1.1 (0-1.2)
== END ==
LOC: M WUC 10:11
PROVIDERS: ATTEND Psychiatry & Neurology Neurology
DX: R51.9 Headache, unspecified (principal); G37.9 Demyelinating disease of central nervous system, unspecified; Z79.899 Other long term (current) drug therapy

== ENCOUNTER 2022-11-16 11:03 | Day surgery (SDC) | payer MEDICARE, OTHER ==
[~2022-11-16] VITALS: Ht 167.6 cm; Wt 131.5 kg
[~2022-11-16 11:03] MED LIST changes: -K-TA10TA PO; +LIDOCAINE 2% 100MG/5ML SDV (FOR ANES.) As Ordered ONE; +NS 1,000 ML IV ONE; +POTA-164 PO; +propofoL 200 MG/20 ML VIAL As Ordered ONE
[2022-11-16] MEDS ORDERED: DOXY50CA51 PO (11:42)
[2022-11-16] MEDS ORDERED: fentaNYL 100 MCG/2 ML INJECTION As Ordered ONE (12:06)
[2022-11-16] MEDS ORDERED: propofoL 200 MG/20 ML VIAL As Ordered ONE (12:45)
[2022-11-16 12:56] VITALS: TEMP 97.7
[2022-11-16 13:25] VITALS: BP 139/101; O2SAT 94
== END 2022-11-16 13:32 | disposition home or self-care (01) ==
LOC: M OPP 11:03
PROVIDERS: ATTEND Internal Medicine Gastroenterology
DX: Z12.11 Encounter for screening for malignant neoplasm of colon (principal); D12.6 Benign neoplasm of colon, unspecified; K64.4 Residual hemorrhoidal skin tags; K64.8 Other hemorrhoids; K29.70 Gastritis, unspecified, without bleeding; K22.9 Disease of esophagus, unspecified; R13.10 Dysphagia, unspecified; Z79.51 Long term (current) use of inhaled steroids; Z79.84 Long term (current) use of oral hypoglycemic drugs; Z79.890 Hormone replacement therapy; Z79.899 Other long term (current) drug therapy; Z88.0 Allergy status to penicillin; Z88.1 Allergy status to other antibiotic agents; Z88.2 Allergy status to sulfonamides; Z88.6 Allergy status to analgesic agent
CPT/HCPCS: 43239; 45385; 88305; J3010

== ENCOUNTER → 2022-12-05 | Outpatient (CLI) | payer MEDICARE, OTHER ==
[~2022-12-05] MED LIST changes: +DOXY50CA51 PO; -LIDOCAINE 2% 100MG/5ML SDV (FOR ANES.) As Ordered ONE; -NS 1,000 ML IV ONE; +ROPI3TAB18 PO; -ROPI3TAB3 PO; -propofoL 200 MG/20 ML VIAL As Ordered ONE
[2022-12-05 10:57] LABS: BASO % 0.2 % (0.0-1.0); HEMATOCRIT 37.6 % (36.0-47.0); HEMOGLOBIN 12.9 g/dl (12.0-15.5); LYMPH # 1.3 10^3/uL (1.5-5.0); LYMPH % 32.2 % (24.0-44.0); MEAN CORPUSCULAR HEMOGLOBIN 30.3 pg (27.0-33.0); MEAN CORPUSCULAR HGB CONC 34.3 g/dl (32.0-36.5); MEAN CORPUSCULAR VOLUME 88.3 fl (80.0-96.0); MONO # 0.2 10^3/uL (0.0-0.8); MONO % 5.6 % (2.0-8.0); NEUTROPHILS # 2.5 10^3/uL (1.5-8.5); PLATELET COUNT, AUTOMATED 246 10^3/uL (150-450); RED BLOOD COUNT 4.26 10^6/uL (4.00-5.40); WHITE BLOOD COUNT 4.1 10^3/uL (4.0-10.0)
== END ==
LOC: M LAB 10:20
PROVIDERS: ATTEND Acupuncturist
DX: Z79.899 Other long term (current) drug therapy (principal)

== ENCOUNTER → 2022-12-22 | Outpatient (CLI) | payer MEDICARE, OTHER | LOC: M LAB 16:29 | PROVIDERS: ATTEND Nurse Practitioner Family | DX: R00.2 Palpitations (principal) ==

== ENCOUNTER → 2023-01-05 | Outpatient (CLI) | payer MEDICARE, OTHER ==
[2023-01-05 17:39] LABS: BASO % 0.2 % (0.0-1.0); EOS % 0.2 % (0.0-3.0); HEMATOCRIT 37.7 % (36.0-47.0); HEMOGLOBIN 12.5 g/dl (12.0-15.5); LYMPH # 1.4 10^3/uL (1.5-5.0); LYMPH % 24.4 % (24.0-44.0); MEAN CORPUSCULAR HEMOGLOBIN 29.4 pg (27.0-33.0); MEAN CORPUSCULAR HGB CONC 33.2 g/dl (32.0-36.5); MEAN CORPUSCULAR VOLUME 88.7 fl (80.0-96.0); MONO # 0.3 10^3/uL (0.0-0.8); MONO % 5.6 % (2.0-8.0); NEUTROPHILS # 3.8 10^3/uL (1.5-8.5); NEUTROPHILS % 68.5 % (36.0-66.0); PLATELET COUNT, AUTOMATED 239 10^3/uL (150-450); RED BLOOD COUNT 4.25 10^6/uL (4.00-5.40); WHITE BLOOD COUNT 5.6 10^3/uL (4.0-10.0)
== END ==
LOC: M LAB 17:15
PROVIDERS: ATTEND Acupuncturist
DX: Z79.899 Other long term (current) drug therapy (principal)

== ENCOUNTER → 2023-02-10 | Outpatient (CLI) | payer MEDICARE, OTHER ==
[2023-02-10 17:01] LABS: BASO % 0.2 % (0.0-1.0); EOS % 0.2 % (0.0-3.0); HEMATOCRIT 38.3 % (36.0-47.0); HEMOGLOBIN 12.6 g/dl (12.0-15.5); LYMPH # 1.2 10^3/uL (1.5-5.0); LYMPH % 26.6 % (24.0-44.0); MEAN CORPUSCULAR HEMOGLOBIN 29.2 pg (27.0-33.0); MEAN CORPUSCULAR HGB CONC 32.9 g/dl (32.0-36.5); MEAN CORPUSCULAR VOLUME 88.9 fl (80.0-96.0); MONO # 0.3 10^3/uL (0.0-0.8); MONO % 6.1 % (2.0-8.0); NEUTROPHILS # 2.9 10^3/uL (1.5-8.5); NEUTROPHILS % 64.4 % (36.0-66.0); PLATELET COUNT, AUTOMATED 218 10^3/uL (150-450); RED BLOOD COUNT 4.31 10^6/uL (4.00-5.40); WHITE BLOOD COUNT 4.4 10^3/uL (4.0-10.0)
== END ==
LOC: M LAB 16:21
PROVIDERS: ATTEND Acupuncturist
DX: Z79.899 Other long term (current) drug therapy (principal)

== ENCOUNTER → 2023-04-05 | Outpatient (CLI) | payer MEDICARE, OTHER ==
[2023-04-05 14:51] LABS: BASO % 0.2 % (0.0-1.0); EOS % 0.2 % (0.0-3.0); HEMATOCRIT 37.3 % (36.0-47.0); HEMOGLOBIN 12.6 g/dl (12.0-15.5); LYMPH # 1.3 10^3/uL (1.5-5.0); LYMPH % 22.6 % (24.0-44.0); MEAN CORPUSCULAR HEMOGLOBIN 29.8 pg (27.0-33.0); MEAN CORPUSCULAR HGB CONC 33.8 g/dl (32.0-36.5); MEAN CORPUSCULAR VOLUME 88.2 fl (80.0-96.0); MONO # 0.4 10^3/uL (0.0-0.8); MONO % 6.4 % (2.0-8.0); NEUTROPHILS % 68.7 % (36.0-66.0); PLATELET COUNT, AUTOMATED 260 10^3/uL (150-450); RED BLOOD COUNT 4.23 10^6/uL (4.00-5.40); WHITE BLOOD COUNT 5.8 10^3/uL (4.0-10.0)
== END ==
LOC: M LAB 14:15
PROVIDERS: ATTEND Acupuncturist
DX: Z79.899 Other long term (current) drug therapy (principal)

== ENCOUNTER → 2023-05-18 | Outpatient (REF) | payer MEDICARE, OTHER ==
[2023-05-18 16:58] LABS: BASO % 0.2 % (0.0-1.0); EOS % 0.2 % (0.0-3.0); HEMOGLOBIN 14.3 g/dl (12.0-15.5); LYMPH # 1.9 10^3/uL (1.5-5.0); LYMPH % 31.7 % (24.0-44.0); MEAN CORPUSCULAR HEMOGLOBIN 30.1 pg (27.0-33.0); MEAN CORPUSCULAR HGB CONC 33.3 g/dl (32.0-36.5); MEAN CORPUSCULAR VOLUME 90.5 fl (80.0-96.0); MONO # 0.3 10^3/uL (0.0-0.8); MONO % 5.8 % (2.0-8.0); NEUTROPHILS # 3.6 10^3/uL (1.5-8.5); NEUTROPHILS % 60.9 % (36.0-66.0); PLATELET COUNT, AUTOMATED 286 10^3/uL (150-450); RED BLOOD COUNT 4.75 10^6/uL (4.00-5.40); WHITE BLOOD COUNT 5.9 10^3/uL (4.0-10.0)
== END ==
LOC: M LABWUC 16:21
PROVIDERS: ATTEND Acupuncturist
DX: Z79.899 Other long term (current) drug therapy (principal)

== ENCOUNTER → 2023-06-01 | Outpatient (REF) | payer MEDICARE, OTHER ==
[2023-06-02 12:43] LABS: BASO % 0.1 % (0.0-1.0); EOS % 0.1 % (0.0-3.0); HEMATOCRIT 41.7 % (36.0-47.0); LYMPH # 1.5 10^3/uL (1.5-5.0); LYMPH % 20.1 % (24.0-44.0); MEAN CORPUSCULAR HEMOGLOBIN 29.9 pg (27.0-33.0); MEAN CORPUSCULAR HGB CONC 33.6 g/dl (32.0-36.5); MEAN CORPUSCULAR VOLUME 89.1 fl (80.0-96.0); MONO # 0.3 10^3/uL (0.0-0.8); MONO % 4.7 % (2.0-8.0); NEUTROPHILS # 5.4 10^3/uL (1.5-8.5); PLATELET COUNT, AUTOMATED 287 10^3/uL (150-450); RED BLOOD COUNT 4.68 10^6/uL (4.00-5.40); WHITE BLOOD COUNT 7.3 10^3/uL (4.0-10.0)
[2023-06-02 13:10] LABS: HEMOGLOBIN A1c 6.4 % (4.0-6.0)
[2023-06-02 13:17] LABS: ALKALINE PHOSPHATASE 137 U/L (46-116); ALT/SGPT 44 U/L (7.0-40); AST/SGOT 45 U/L (<34); BILIRUBIN,TOTAL 0.5 MG/DL (0.3-1.2); BLOOD UREA NITROGEN 13 MG/DL (9-23); CARBON DIOXIDE LEVEL 26 MMOL/L (20-31); CHLORIDE LEVEL 103 MMOL/L (98-107); CHOLESTEROL LEVEL 223 MG/DL (<200); CHOLESTEROL RISK RATIO 4.96 (<5); CREATININE FOR GFR 0.69 MG/DL (0.55-1.30); GLOMERULAR FILTRATION RATE > 60.0 (>51); GLUCOSE, FASTING 173 MG/DL (60-100); HDL CHOLESTEROL 44.9 MG/DL (>40); LDL CHOLESTEROL 137.7 MG/DL (<100); MAGNESIUM LEVEL 1.9 MG/DL (1.8-2.4); NON-HDL-C 178.1 MG/DL; POTASSIUM SERUM 5.1 MMOL/L (3.5-5.1); SODIUM LEVEL 137 MMOL/L (136-145); TOTAL PROTEIN 7.2 G/DL (5.7-8.2); TRIGLYCERIDES LEVEL 202 MG/DL (<150)
[2023-06-02 13:18] LABS: FREE T4 1.14 NG/DL (0.89-1.76); THYROID STIMULATING HORMONE 2.785 uIU/ML (0.55-4.78)
== END ==
LOC: M LAB REF 11:41
PROVIDERS: ATTEND Nurse Practitioner Family
DX: I50.9 Heart failure, unspecified (principal); E66.01 Morbid (severe) obesity due to excess calories; Z79.899 Other long term (current) drug therapy

== ENCOUNTER → 2023-06-01 | Outpatient (CLI) | payer MEDICARE, OTHER | LOC: M WHC 13:30 | PROVIDERS: ATTEND Obstetrics & Gynecology Female Pelvic Medicine and Reconstructive Surgery | DX: Z12.31 Encounter for screening mammogram for malignant neoplasm of breast (principal); R92.333 Mammographic heterogeneous density, bilateral breasts ==

== ENCOUNTER → 2023-06-23 | Outpatient (REF) | payer MEDICARE, OTHER ==
[2023-06-23 13:28] LABS: BASO % 0.1 % (0.0-1.0); EOS % 0.1 % (0.0-3.0); HEMATOCRIT 43.2 % (36.0-47.0); HEMOGLOBIN 14.4 g/dl (12.0-15.5); LYMPH # 2.7 10^3/uL (1.5-5.0); LYMPH % 33.3 % (24.0-44.0); MEAN CORPUSCULAR HEMOGLOBIN 30.2 pg (27.0-33.0); MEAN CORPUSCULAR HGB CONC 33.3 g/dl (32.0-36.5); MEAN CORPUSCULAR VOLUME 90.6 fl (80.0-96.0); MONO # 0.4 10^3/uL (0.0-0.8); MONO % 5.5 % (2.0-8.0); NEUTROPHILS # 4.8 10^3/uL (1.5-8.5); PLATELET COUNT, AUTOMATED 287 10^3/uL (150-450); RED BLOOD COUNT 4.77 10^6/uL (4.00-5.40)
== END ==
LOC: M LABWUC 12:26
PROVIDERS: ATTEND Acupuncturist
DX: Z51.81 Encounter for therapeutic drug level monitoring (principal); Z79.899 Other long term (current) drug therapy

== ENCOUNTER → 2023-06-23 | Outpatient (CLI) | payer MEDICARE, OTHER ==
[2023-06-23 13:33] LABS: THYROID STIMULATING HORMONE 2.605 uIU/ML (0.55-4.78)
[2023-06-23 13:35] LABS: FREE T4 1.04 NG/DL (0.89-1.76)
[2023-06-24 16:08] LABS: ALDOLASE 8.1 U/L (3.3-10.3); ANTINUCLEAR ANTIBODIES DIRECT Negative (Negative); VITAMIN D 1,25 DIHYDROXY 28.8 pg/mL (24.8-81.5)
== END ==
LOC: M WUC 09:27
PROVIDERS: ATTEND Internal Medicine Critical Care Medicine
DX: M62.81 Muscle weakness (generalized) (principal); Z79.899 Other long term (current) drug therapy; Z86.39 Personal history of other endocrine, nutritional and metabolic disease

== ENCOUNTER → 2023-07-27 | Outpatient (CLI) | payer MEDICARE, OTHER ==
[2023-07-27 16:25] LABS: BASO % 0.5 % (0.0-1.0); EOS % 0.2 % (0.0-3.0); HEMATOCRIT 41.4 % (36.0-47.0); HEMOGLOBIN 13.7 g/dl (12.0-15.5); LYMPH # 1.8 10^3/uL (1.5-5.0); LYMPH % 30.5 % (24.0-44.0); MEAN CORPUSCULAR HEMOGLOBIN 30.2 pg (27.0-33.0); MEAN CORPUSCULAR HGB CONC 33.1 g/dl (32.0-36.5); MEAN CORPUSCULAR VOLUME 91.2 fl (80.0-96.0); MONO # 0.3 10^3/uL (0.0-0.8); MONO % 4.8 % (2.0-8.0); NEUTROPHILS # 3.6 10^3/uL (1.5-8.5); NEUTROPHILS % 62.1 % (36.0-66.0); PLATELET COUNT, AUTOMATED 318 10^3/uL (150-450); RED BLOOD COUNT 4.54 10^6/uL (4.00-5.40); WHITE BLOOD COUNT 5.9 10^3/uL (4.0-10.0)
== END ==
LOC: M WUC 13:08
PROVIDERS: ATTEND Acupuncturist
DX: Z79.899 Other long term (current) drug therapy (principal)

== ENCOUNTER → 2023-08-10 | Outpatient (CLI) | payer MEDICARE, OTHER ==
[2023-08-10 17:46] LABS: HEMATOCRIT 39.8 % (36.0-47.0); HEMOGLOBIN 13.7 g/dl (12.0-15.5); MEAN CORPUSCULAR HEMOGLOBIN 32.1 pg (27.0-33.0); MEAN CORPUSCULAR HGB CONC 34.4 g/dl (32.0-36.5); MEAN CORPUSCULAR VOLUME 93.2 fl (80.0-96.0); PLATELET COUNT, AUTOMATED 183 10^3/uL (150-450); RED BLOOD COUNT 4.27 10^6/uL (4.00-5.40); WHITE BLOOD COUNT 5.8 10^3/uL (4.0-10.0)
[2023-08-10 18:40] LABS: ALBUMIN 3.7 G/DL (3.2-5.2); ALKALINE PHOSPHATASE 117 U/L (46-116); ALT/SGPT 32 U/L (7.0-40); AST/SGOT 28 U/L (<34); BILIRUBIN,TOTAL 0.4 MG/DL (0.3-1.2); BLOOD UREA NITROGEN 12 MG/DL (9-23); CALCIUM LEVEL 8.2 MG/DL (8.3-10.6); CARBON DIOXIDE LEVEL 27 MMOL/L (20-31); CHLORIDE LEVEL 105 MMOL/L (98-107); CREATININE FOR GFR 0.64 MG/DL (0.55-1.30); GLOMERULAR FILTRATION RATE > 60.0 (>45); GLUCOSE, FASTING 190 MG/DL (74-106); POTASSIUM SERUM 4.4 MMOL/L (3.5-5.1); SODIUM LEVEL 138 MMOL/L (136-145); THYROID STIMULATING HORMONE 0.988 uIU/ML (0.55-4.78); VITAMIN B12 LEVEL 388 PG/ML (211-911)
== END ==
LOC: M WUC 13:23
DX: Z01.89 Encounter for other specified special examinations (principal); R40.4 Transient alteration of awareness; G31.84 Mild cognitive impairment of uncertain or unknown etiology; R74.01 Elevation of levels of liver transaminase levels; E78.5 Hyperlipidemia, unspecified; E66.01 Morbid (severe) obesity due to excess calories; Z79.899 Other long term (current) drug therapy; Z11.3 Encounter for screening for infections with a predominantly sexual mode of transmission; Z72.89 Other problems related to lifestyle

== ENCOUNTER → 2023-08-10 | Outpatient (REF) | payer MEDICARE, OTHER ==
[2023-08-10 17:23] LABS: HEMOGLOBIN A1c 6.2 % (4.0-6.0)
[2023-08-10 17:40] LABS: ALBUMIN 3.5 G/DL (3.2-5.2); BILIRUBIN,DIRECT 0.1 MG/DL (<0.4); BILIRUBIN,TOTAL 0.4 MG/DL (0.3-1.2); CHOLESTEROL RISK RATIO 4.44 (<5); HDL CHOLESTEROL 37.1 MG/DL (>40); LDL CHOLESTEROL 86.9 MG/DL (<100); NON-HDL-C 127.9 MG/DL; TOTAL PROTEIN 6.6 G/DL (5.7-8.2)
== END ==
LOC: M LAB REF 16:22
PROVIDERS: ATTEND Nurse Practitioner Family
DX: R74.01 Elevation of levels of liver transaminase levels (principal); E78.5 Hyperlipidemia, unspecified; E66.01 Morbid (severe) obesity due to excess calories

== ENCOUNTER → 2023-09-10 | Outpatient (CLI) | payer MEDICARE, OTHER ==
[2023-09-10 15:17] LABS: BASO % 0.3 % (0.0-1.0); EOS % 0.1 % (0.0-3.0); HEMATOCRIT 38.5 % (36.0-47.0); HEMOGLOBIN 13.2 g/dl (12.0-15.5); LYMPH # 2.1 10^3/uL (1.5-5.0); LYMPH % 29.1 % (24.0-44.0); MEAN CORPUSCULAR HEMOGLOBIN 31.5 pg (27.0-33.0); MEAN CORPUSCULAR HGB CONC 34.3 g/dl (32.0-36.5); MEAN CORPUSCULAR VOLUME 91.9 fl (80.0-96.0); MONO # 0.3 10^3/uL (0.0-0.8); MONO % 4.8 % (2.0-8.0); NEUTROPHILS # 4.6 10^3/uL (1.5-8.5); PLATELET COUNT, AUTOMATED 271 10^3/uL (150-450); RED BLOOD COUNT 4.19 10^6/uL (4.00-5.40); WHITE BLOOD COUNT 7.1 10^3/uL (4.0-10.0)
== END ==
LOC: M LAB 14:26
PROVIDERS: ATTEND Acupuncturist
DX: Z79.899 Other long term (current) drug therapy (principal)

== ENCOUNTER → 2023-09-10 | Outpatient (CLI) | payer MEDICARE, OTHER ==
[2023-09-10 15:15] LABS: BASO % 0.3 % (0.0-1.0); EOS % 0.1 % (0.0-3.0); HEMATOCRIT 38.5 % (36.0-47.0); HEMOGLOBIN 13.2 g/dl (12.0-15.5); LYMPH # 1.9 10^3/uL (1.5-5.0); MEAN CORPUSCULAR HEMOGLOBIN 31.5 pg (27.0-33.0); MEAN CORPUSCULAR HGB CONC 34.3 g/dl (32.0-36.5); MEAN CORPUSCULAR VOLUME 91.9 fl (80.0-96.0); MONO # 0.4 10^3/uL (0.0-0.8); MONO % 5.4 % (2.0-8.0); NEUTROPHILS # 4.5 10^3/uL (1.5-8.5); NEUTROPHILS % 65.6 % (36.0-66.0); PLATELET COUNT, AUTOMATED 262 10^3/uL (150-450); RED BLOOD COUNT 4.19 10^6/uL (4.00-5.40); WHITE BLOOD COUNT 6.9 10^3/uL (4.0-10.0)
[2023-09-10 15:41] LABS: ALBUMIN 3.3 G/DL (3.2-5.2); ALKALINE PHOSPHATASE 119 U/L (46-116); ALT/SGPT 41 U/L (7.0-40); AST/SGOT 24 U/L (<34); BILIRUBIN,TOTAL 0.4 MG/DL (0.3-1.2); BLOOD UREA NITROGEN 12 MG/DL (9-23); CALCIUM LEVEL 8.8 MG/DL (8.3-10.6); CARBON DIOXIDE LEVEL 26 MMOL/L (20-31); CHLORIDE LEVEL 107 MMOL/L (98-107); CREATININE FOR GFR 0.71 MG/DL (0.55-1.30); GLOMERULAR FILTRATION RATE > 60.0 (>45); GLUCOSE, FASTING 178 MG/DL (74-106); POTASSIUM SERUM 4.1 MMOL/L (3.5-5.1); SODIUM LEVEL 140 MMOL/L (136-145); TOTAL PROTEIN 6.7 G/DL (5.7-8.2)
[2023-09-10 15:43] LABS: THYROID STIMULATING HORMONE 1.819 uIU/ML (0.55-4.78); VITAMIN B12 LEVEL 482 PG/ML (211-911)
== END ==
LOC: M LAB 14:28
PROVIDERS: ATTEND Nurse Practitioner
DX: R40.4 Transient alteration of awareness (principal); G31.84 Mild cognitive impairment of uncertain or unknown etiology; Z11.3 Encounter for screening for infections with a predominantly sexual mode of transmission; Z72.89 Other problems related to lifestyle; Z79.899 Other long term (current) drug therapy

== ENCOUNTER → 2023-09-12 | Outpatient (REF) | payer MEDICARE, OTHER ==
[2023-09-12 13:19] LABS: MAGNESIUM LEVEL 1.7 MG/DL (1.8-2.4)
[2023-09-12 13:21] LABS: PERCENT SATURATION 16.7 % (13.2-45.0)
== END ==
LOC: M LAB REF 11:28
PROVIDERS: ATTEND Nurse Practitioner Family
DX: E66.01 Morbid (severe) obesity due to excess calories (principal); Z86.39 Personal history of other endocrine, nutritional and metabolic disease

== ENCOUNTER → 2023-09-22 | Outpatient (CLI) | payer MEDICARE, OTHER | LOC: M PLARAD 14:52 | PROVIDERS: ATTEND Psychiatry & Neurology Neurology | DX: G31.84 Mild cognitive impairment of uncertain or unknown etiology (principal); R40.4 Transient alteration of awareness ==

== ENCOUNTER → 2023-11-01 | Outpatient (CLI) | payer MEDICARE, OTHER ==
[~2023-11-01] MED LIST changes: +CLOM1CAP4 PO; -CLOM50CA3 PO; +DOXY50CA35 PO; -DOXY50CA51 PO
[2023-11-01 12:51] LABS: BASO % 0.1 % (0.0-1.0); EOS # 0.1 10^3/uL (0.0-0.5); EOS % 0.9 % (0.0-3.0); HEMATOCRIT 40.4 % (36.0-47.0); HEMOGLOBIN 13.8 g/dl (12.0-15.5); LYMPH % 29.2 % (24.0-44.0); MEAN CORPUSCULAR HEMOGLOBIN 31.2 pg (27.0-33.0); MEAN CORPUSCULAR HGB CONC 34.2 g/dl (32.0-36.5); MEAN CORPUSCULAR VOLUME 91.2 fl (80.0-96.0); MONO # 0.4 10^3/uL (0.0-0.8); MONO % 5.2 % (2.0-8.0); NEUTROPHILS # 4.3 10^3/uL (1.5-8.5); PLATELET COUNT, AUTOMATED 300 10^3/uL (150-450); RED BLOOD COUNT 4.43 10^6/uL (4.00-5.40); WHITE BLOOD COUNT 6.7 10^3/uL (4.0-10.0)
[2023-11-01 12:58] LABS: IRON (FE) 64 UG/DL (50-170)
[2023-11-01 12:59] LABS: ALBUMIN 3.7 G/DL (3.2-5.2); ALKALINE PHOSPHATASE 102 U/L (46-116); ALT/SGPT 38 U/L (7.0-40); AST/SGOT 23 U/L (<34); BILIRUBIN,TOTAL 0.7 MG/DL (0.3-1.2); BLOOD UREA NITROGEN 12 MG/DL (9-23); CALCIUM LEVEL 9.2 MG/DL (8.3-10.6); CARBON DIOXIDE LEVEL 29 MMOL/L (20-31); CHLORIDE LEVEL 103 MMOL/L (98-107); CHOLESTEROL LEVEL 159 MG/DL (<200); CHOLESTEROL RISK RATIO 3.68 (<5); CREATININE FOR GFR 0.74 MG/DL (0.55-1.30); FERRITIN 56.8 NG/ML (7.3-270.7); GLOMERULAR FILTRATION RATE > 60.0 (>45); GLUCOSE, FASTING 117 MG/DL (74-106); HDL CHOLESTEROL 43.2 MG/DL (>40); LDL CHOLESTEROL 90.6 MG/DL (<100); MAGNESIUM LEVEL 1.8 MG/DL (1.8-2.4); NON-HDL-C 115.8 MG/DL; POTASSIUM SERUM 3.8 MMOL/L (3.5-5.1); SODIUM LEVEL 139 MMOL/L (136-145); THYROID STIMULATING HORMONE 2.386 uIU/ML (0.55-4.78); THYROXINE (T4) 8.9 UG/DL (4.5-10.9); TOTAL IRON BINDING CAPACITY 305 UG/DL (250-425); TOTAL PROTEIN 6.8 G/DL (5.7-8.2); TOTAL T3 127.9 NG/DL (60.0-181.0); TRIGLYCERIDES LEVEL 126 MG/DL (<150)
[2023-11-01 13:00] LABS: TOTAL 25(OH) VITAMIN D 44.8 NG/ML (20.0-100.0)
[2023-11-01 13:39] LABS: HEMOGLOBIN A1c 5.8 % (4.0-6.0)
== END ==
LOC: M WUC 09:28
PROVIDERS: ATTEND Acupuncturist
DX: Z79.899 Other long term (current) drug therapy (principal); E55.9 Vitamin D deficiency, unspecified; D50.9 Iron deficiency anemia, unspecified; R79.89 Other specified abnormal findings of blood chemistry
CPT/HCPCS: 36415; 80053; 80061; 82306; 82728; 83036; 83550; 83735; 84436; 84443; 84480; 85025; G0480

== ENCOUNTER → 2023-12-10 | Outpatient (CLI) | payer MEDICARE, OTHER ==
[2023-12-10 10:54] LABS: BASO % 0.2 % (0.0-1.0); EOS # 0.1 10^3/uL (0.0-0.5); EOS % 1.8 % (0.0-3.0); HEMOGLOBIN 12.9 g/dl (12.0-15.5); LYMPH # 1.8 10^3/uL (1.5-5.0); LYMPH % 29.9 % (24.0-44.0); MEAN CORPUSCULAR HEMOGLOBIN 31.2 pg (27.0-33.0); MEAN CORPUSCULAR HGB CONC 33.9 g/dl (32.0-36.5); MONO # 0.3 10^3/uL (0.0-0.8); NEUTROPHILS # 3.8 10^3/uL (1.5-8.5); NEUTROPHILS % 62.4 % (36.0-66.0); PLATELET COUNT, AUTOMATED 265 10^3/uL (150-450); RED BLOOD COUNT 4.13 10^6/uL (4.00-5.40)
== END ==
LOC: M LAB 10:20
PROVIDERS: ATTEND Acupuncturist
DX: Z79.899 Other long term (current) drug therapy (principal)

== ENCOUNTER → 2023-12-17 | Outpatient (CLI) | payer MEDICARE, OTHER ==
[2023-12-17 10:50] LABS: BASO % 0.4 % (0.0-1.0); EOS # 0.1 10^3/uL (0.0-0.5); EOS % 1.1 % (0.0-3.0); HEMATOCRIT 38.9 % (36.0-47.0); HEMOGLOBIN 13.1 g/dl (12.0-15.5); LYMPH # 2.1 10^3/uL (1.5-5.0); LYMPH % 29.1 % (24.0-44.0); MEAN CORPUSCULAR HEMOGLOBIN 30.8 pg (27.0-33.0); MEAN CORPUSCULAR HGB CONC 33.7 g/dl (32.0-36.5); MEAN CORPUSCULAR VOLUME 91.5 fl (80.0-96.0); MONO # 0.4 10^3/uL (0.0-0.8); NEUTROPHILS # 4.7 10^3/uL (1.5-8.5); NEUTROPHILS % 63.4 % (36.0-66.0); PLATELET COUNT, AUTOMATED 255 10^3/uL (150-450); RED BLOOD COUNT 4.25 10^6/uL (4.00-5.40); WHITE BLOOD COUNT 7.4 10^3/uL (4.0-10.0)
== END ==
LOC: M LAB 10:11
PROVIDERS: ATTEND Acupuncturist
DX: Z79.899 Other long term (current) drug therapy (principal)

== ENCOUNTER → 2023-12-27 | Outpatient (REF) | payer MEDICARE, OTHER ==
[2023-12-27 14:26] LABS: ALBUMIN 3.5 G/DL (3.2-5.2); ALKALINE PHOSPHATASE 115 U/L (46-116); ALT/SGPT 26 U/L (7.0-40); AST/SGOT 18 U/L (<34); BILIRUBIN,TOTAL 0.4 MG/DL (0.3-1.2); BLOOD UREA NITROGEN 15 MG/DL (9-23); CALCIUM LEVEL 8.9 MG/DL (8.3-10.6); CARBON DIOXIDE LEVEL 28 MMOL/L (20-31); CHLORIDE LEVEL 105 MMOL/L (98-107); CHOLESTEROL LEVEL 192 MG/DL (<200); CHOLESTEROL RISK RATIO 4.21 (<5); CREATININE FOR GFR 0.76 MG/DL (0.55-1.30); GLOMERULAR FILTRATION RATE > 60.0 (>45); GLUCOSE, FASTING 127 MG/DL (74-106); HDL CHOLESTEROL 45.5 MG/DL (>40); LDL CHOLESTEROL 110.9 MG/DL (<100); NON-HDL-C 146.5 MG/DL; POTASSIUM SERUM 4.5 MMOL/L (3.5-5.1); SODIUM LEVEL 140 MMOL/L (136-145); TOTAL PROTEIN 6.9 G/DL (5.7-8.2); TRIGLYCERIDES LEVEL 178 MG/DL (<150)
[2023-12-27 14:33] LABS: HEMOGLOBIN A1c 5.7 % (4.0-6.0)
[2023-12-28 15:24] LABS: ANA SCREEN, IFA POSITIVE (NEGATIVE)
== END ==
LOC: M LAB REF 13:35
PROVIDERS: ATTEND Nurse Practitioner Family
DX: E78.5 Hyperlipidemia, unspecified (principal); R73.03 Prediabetes; Z84.0 Family history of diseases of the skin and subcutaneous tissue

== ENCOUNTER → 2023-12-29 | Outpatient (REF) | payer MEDICARE, OTHER ==
[2023-12-29 16:48] LABS: BASO % 0.4 % (0.0-1.0); EOS # 0.1 10^3/uL (0.0-0.5); EOS % 0.6 % (0.0-3.0); HEMATOCRIT 42.5 % (36.0-47.0); HEMOGLOBIN 14.5 g/dl (12.0-15.5); LYMPH # 2.3 10^3/uL (1.5-5.0); LYMPH % 28.8 % (24.0-44.0); MEAN CORPUSCULAR HEMOGLOBIN 31.2 pg (27.0-33.0); MEAN CORPUSCULAR HGB CONC 34.1 g/dl (32.0-36.5); MEAN CORPUSCULAR VOLUME 91.4 fl (80.0-96.0); MONO # 0.4 10^3/uL (0.0-0.8); MONO % 5.2 % (2.0-8.0); NEUTROPHILS # 5.1 10^3/uL (1.5-8.5); NEUTROPHILS % 64.5 % (36.0-66.0); PLATELET COUNT, AUTOMATED 315 10^3/uL (150-450); RED BLOOD COUNT 4.65 10^6/uL (4.00-5.40); WHITE BLOOD COUNT 7.9 10^3/uL (4.0-10.0)
[2023-12-29 17:16] LABS: RHEUMATOID FACTOR QUANT < 3.5 IU/ML (<14)
[2023-12-29 17:17] LABS: ALBUMIN 4.1 G/DL (3.2-5.2); ALKALINE PHOSPHATASE 117 U/L (46-116); ALT/SGPT 32 U/L (7.0-40); AST/SGOT 23 U/L (<34); BILIRUBIN,TOTAL 0.5 MG/DL (0.3-1.2); BLOOD UREA NITROGEN 17 MG/DL (9-23); CALCIUM LEVEL 9.1 MG/DL (8.3-10.6); CARBON DIOXIDE LEVEL 25 MMOL/L (20-31); CHLORIDE LEVEL 103 MMOL/L (98-107); CREATININE FOR GFR 0.76 MG/DL (0.55-1.30); GLOMERULAR FILTRATION RATE > 60.0 (>45); GLUCOSE, FASTING 101 MG/DL (74-106); POTASSIUM SERUM 4.9 MMOL/L (3.5-5.1); SODIUM LEVEL 135 MMOL/L (136-145); TOTAL PROTEIN 7.5 G/DL (5.7-8.2)
[2023-12-29 17:23] LABS: ERYTHROCYTE SEDIMENTATION RATE 50 mm/hr (0-30)
[2024-01-02 11:27] LABS: SSA SJOGRENS A <1.0 NEG AI (<1.0 NEG); SSB SJOGRENS B <1.0 NEG AI (<1.0 NEG)
[2024-01-02 23:58] LABS: CYCLIC CITRULLINATED PEPTIDE < 16 UNITS (<20)
[2024-01-03 13:37] LABS: ANA SCREEN, IFA POSITIVE (NEGATIVE)
== END ==
LOC: M LAB REF 16:21
PROVIDERS: ATTEND Nurse Practitioner Family
DX: R76.8 Other specified abnormal immunological findings in serum (principal)

== ENCOUNTER → 2024-01-02 | Outpatient (CLI) | payer MEDICARE, OTHER | LOC: M WHC 12:44 | PROVIDERS: ATTEND Obstetrics & Gynecology Female Pelvic Medicine and Reconstructive Surgery | DX: Z13.820 Encounter for screening for osteoporosis (principal); Z79.51 Long term (current) use of inhaled steroids ==

== ENCOUNTER → 2024-03-01 | Outpatient (CLI) | payer MEDICARE, OTHER, MEDICAID ==
[~2024-03-01] MED LIST changes: -DOXY50CA35 PO; +DOXY50CA50 PO
== END ==
LOC: M PLAIMG 12:28
PROVIDERS: ATTEND Physician Assistant
DX: M47.26 Other spondylosis with radiculopathy, lumbar region (principal); M51.26 Other intervertebral disc displacement, lumbar region

== ENCOUNTER → 2024-03-07 | Outpatient (CLI) | payer MEDICARE, OTHER, MEDICAID ==
[2024-03-07 12:31] LABS: BASO % 0.5 % (0.0-1.0); EOS # 0.1 10^3/uL (0.0-0.5); EOS % 1.7 % (0.0-3.0); HEMOGLOBIN 14.1 g/dl (12.0-15.5); LYMPH # 1.9 10^3/uL (1.5-5.0); LYMPH % 33.3 % (24.0-44.0); MEAN CORPUSCULAR HEMOGLOBIN 31.7 pg (27.0-33.0); MEAN CORPUSCULAR HGB CONC 33.6 g/dl (32.0-36.5); MEAN CORPUSCULAR VOLUME 94.4 fl (80.0-96.0); MONO # 0.3 10^3/uL (0.0-0.8); MONO % 5.9 % (2.0-8.0); NEUTROPHILS # 3.4 10^3/uL (1.5-8.5); NEUTROPHILS % 57.7 % (36.0-66.0); PLATELET COUNT, AUTOMATED 276 10^3/uL (150-450); RED BLOOD COUNT 4.45 10^6/uL (4.00-5.40); WHITE BLOOD COUNT 5.8 10^3/uL (4.0-10.0)
== END ==
LOC: M WUC 10:16
PROVIDERS: ATTEND Acupuncturist
DX: Z79.899 Other long term (current) drug therapy (principal)

== ENCOUNTER → 2024-03-27 | Outpatient (CLI) | payer MEDICARE, OTHER, MEDICAID | LOC: M CARPUL 14:15 | PROVIDERS: ATTEND Internal Medicine Cardiovascular Disease | DX: R94.31 Abnormal electrocardiogram [ECG] [EKG] (principal); R06.02 Shortness of breath; I50.32 Chronic diastolic (congestive) heart failure ==

== ENCOUNTER → 2024-03-27 | Outpatient (CLI) | payer MEDICARE, OTHER, MEDICAID ==
[2024-03-27 13:06] LABS: BASO % 0.4 % (0.0-1.0); EOS # 0.1 10^3/uL (0.0-0.5); EOS % 1.9 % (0.0-3.0); HEMATOCRIT 39.1 % (36.0-47.0); HEMOGLOBIN 13.5 g/dl (12.0-15.5); LYMPH # 2.4 10^3/uL (1.5-5.0); LYMPH % 35.2 % (24.0-44.0); MEAN CORPUSCULAR HEMOGLOBIN 31.8 pg (27.0-33.0); MEAN CORPUSCULAR HGB CONC 34.5 g/dl (32.0-36.5); MONO # 0.4 10^3/uL (0.0-0.8); MONO % 5.9 % (2.0-8.0); NEUTROPHILS # 3.8 10^3/uL (1.5-8.5); PLATELET COUNT, AUTOMATED 253 10^3/uL (150-450); RED BLOOD COUNT 4.25 10^6/uL (4.00-5.40); WHITE BLOOD COUNT 6.7 10^3/uL (4.0-10.0)
[2024-03-27 13:29] LABS: FREE T4 1.12 NG/DL (0.89-1.76); THYROID STIMULATING HORMONE 1.818 uIU/ML (0.55-4.78)
[2024-03-27 13:30] LABS: FERRITIN 40.1 NG/ML (7.3-270.7)
[2024-03-27 13:32] LABS: FOLATE 17.34 NG/ML (>5.4); TOTAL 25(OH) VITAMIN D 29.8 NG/ML (20.0-100.0)
== END ==
LOC: M WUC 10:15
PROVIDERS: ATTEND Nurse Practitioner Family
DX: L60.3 Nail dystrophy (principal); Z79.899 Other long term (current) drug therapy

== ENCOUNTER → 2024-04-07 | Outpatient (CLI) | payer MEDICARE, OTHER, MEDICAID ==
[2024-04-07 11:41] LABS: BASO % 0.3 % (0.0-1.0); EOS # 0.1 10^3/uL (0.0-0.5); EOS % 1.6 % (0.0-3.0); HEMATOCRIT 40.5 % (36.0-47.0); HEMOGLOBIN 13.6 g/dl (12.0-15.5); LYMPH # 2.1 10^3/uL (1.5-5.0); LYMPH % 27.7 % (24.0-44.0); MEAN CORPUSCULAR HEMOGLOBIN 30.7 pg (27.0-33.0); MEAN CORPUSCULAR HGB CONC 33.6 g/dl (32.0-36.5); MEAN CORPUSCULAR VOLUME 91.4 fl (80.0-96.0); MONO # 0.5 10^3/uL (0.0-0.8); MONO % 6.3 % (2.0-8.0); NEUTROPHILS # 4.9 10^3/uL (1.5-8.5); NEUTROPHILS % 63.7 % (36.0-66.0); PLATELET COUNT, AUTOMATED 263 10^3/uL (150-450); RED BLOOD COUNT 4.43 10^6/uL (4.00-5.40); WHITE BLOOD COUNT 7.7 10^3/uL (4.0-10.0)
== END ==
LOC: M LAB 11:14
PROVIDERS: ATTEND Acupuncturist
DX: Z51.81 Encounter for therapeutic drug level monitoring (principal); Z79.899 Other long term (current) drug therapy

== ENCOUNTER → 2024-04-24 | Outpatient (CLI) | payer MEDICARE, OTHER, MEDICAID ==
[2024-04-24 18:27] LABS: BASO % 0.4 % (0.0-1.0); EOS # 0.3 10^3/uL (0.0-0.5); EOS % 4.5 % (0.0-3.0); HEMOGLOBIN 13.9 g/dl (12.0-15.5); LYMPH # 2.8 10^3/uL (1.5-5.0); MEAN CORPUSCULAR HEMOGLOBIN 31.4 pg (27.0-33.0); MEAN CORPUSCULAR HGB CONC 34.8 g/dl (32.0-36.5); MEAN CORPUSCULAR VOLUME 90.5 fl (80.0-96.0); MONO # 0.4 10^3/uL (0.0-0.8); MONO % 5.1 % (2.0-8.0); NEUTROPHILS # 3.9 10^3/uL (1.5-8.5); NEUTROPHILS % 51.8 % (36.0-66.0); PLATELET COUNT, AUTOMATED 281 10^3/uL (150-450); RED BLOOD COUNT 4.42 10^6/uL (4.00-5.40); WHITE BLOOD COUNT 7.5 10^3/uL (4.0-10.0)
[2024-04-24 18:57] LABS: TOTAL IRON BINDING CAPACITY 316 UG/DL (250-425)
[2024-04-24 18:58] LABS: IRON (FE) 98 UG/DL (50-170)
[2024-04-24 18:59] LABS: ALBUMIN 3.6 G/DL (3.2-5.2); ALKALINE PHOSPHATASE 116 U/L (35-104); ALT/SGPT 25 U/L (7.0-40); AST/SGOT 15 U/L (<34); BILIRUBIN,TOTAL 0.4 MG/DL (0.3-1.2); BLOOD UREA NITROGEN 13 MG/DL (9-23); CALCIUM LEVEL 9.4 MG/DL (8.3-10.6); CARBON DIOXIDE LEVEL 26 MMOL/L (20-31); CHLORIDE LEVEL 105 MMOL/L (98-107); CHOLESTEROL LEVEL 166 MG/DL (<200); CHOLESTEROL RISK RATIO 3.78 (<5); CREATININE FOR GFR 0.75 MG/DL (0.55-1.30); FERRITIN 62.7 NG/ML (7.3-270.7); GLOMERULAR FILTRATION RATE > 60.0 (>45); GLUCOSE, FASTING 94 MG/DL (74-106); HDL CHOLESTEROL 43.8 MG/DL (>40); LDL CHOLESTEROL 94.4 MG/DL (<100); MAGNESIUM LEVEL 1.8 MG/DL (1.8-2.4); NON-HDL-C 122.2 MG/DL; POTASSIUM SERUM 3.5 MMOL/L (3.5-5.1); SODIUM LEVEL 140 MMOL/L (136-145); THYROID STIMULATING HORMONE 0.917 uIU/ML (0.55-4.78); THYROXINE (T4) 7.4 UG/DL (4.5-10.9); TOTAL 25(OH) VITAMIN D 46.8 NG/ML (20.0-100.0); TOTAL PROTEIN 7.1 G/DL (5.7-8.2); TOTAL T3 95.8 NG/DL (60.0-181.0); TRIGLYCERIDES LEVEL 139 MG/DL (<150)
[2024-04-24 19:33] LABS: HEMOGLOBIN A1c 5.5 % (4.0-6.0)
[2024-04-29 10:06] LABS: CLOMIPRAMINE 186 ng/mL (70-200); CLOZAPINE 1 77 ng/mL (350-600); CLOZAPINE 2 45 ng/mL (Not Estab.); CLOZAPINE 3 122 ng/mL (.); NORCLOMIPRAMINE 244 ng/mL (150-300); TOTAL (CLO+NORCLO) 430 ng/mL (220-500)
== END ==
LOC: M WUC 14:12
PROVIDERS: ATTEND Acupuncturist
DX: E55.9 Vitamin D deficiency, unspecified (principal); Z79.899 Other long term (current) drug therapy; D50.9 Iron deficiency anemia, unspecified; R79.89 Other specified abnormal findings of blood chemistry
CPT/HCPCS: 36415; 80053; 80061; 80159; 82306; 82728; 83036; 83550; 83735; 84436; 84443; 84480; 85025; G0480

== ENCOUNTER → 2024-04-27 | Outpatient (CLI) | payer MEDICARE, OTHER, MEDICAID | LOC: M CARPUL 08:12 | PROVIDERS: ATTEND Internal Medicine Cardiovascular Disease | DX: I42.2 Other hypertrophic cardiomyopathy (principal); I27.20 Pulmonary hypertension, unspecified; I50.32 Chronic diastolic (congestive) heart failure ==

== ENCOUNTER → 2024-05-08 | Outpatient (CLI) | payer MEDICARE, OTHER, MEDICAID ==
[2024-05-08 11:56] LABS: BASO % 0.4 % (0.0-1.0); EOS # 0.4 10^3/uL (0.0-0.5); EOS % 6.8 % (0.0-3.0); HEMATOCRIT 37.9 % (36.0-47.0); LYMPH # 1.7 10^3/uL (1.5-5.0); LYMPH % 30.7 % (24.0-44.0); MEAN CORPUSCULAR HEMOGLOBIN 31.5 pg (27.0-33.0); MEAN CORPUSCULAR HGB CONC 34.3 g/dl (32.0-36.5); MEAN CORPUSCULAR VOLUME 91.8 fl (80.0-96.0); MONO # 0.2 10^3/uL (0.0-0.8); MONO % 4.1 % (2.0-8.0); NEUTROPHILS # 3.2 10^3/uL (1.5-8.5); NEUTROPHILS % 57.6 % (36.0-66.0); PLATELET COUNT, AUTOMATED 279 10^3/uL (150-450); RED BLOOD COUNT 4.13 10^6/uL (4.00-5.40); WHITE BLOOD COUNT 5.6 10^3/uL (4.0-10.0)
== END ==
LOC: M LAB 10:57
PROVIDERS: ATTEND Acupuncturist
DX: Z79.899 Other long term (current) drug therapy (principal)

== ENCOUNTER → 2024-06-10 | Outpatient (CLI) | payer MEDICARE, OTHER, MEDICAID ==
[2024-06-10 10:56] LABS: BASO % 0.5 % (0.0-1.0); EOS # 0.2 10^3/uL (0.0-0.5); EOS % 3.2 % (0.0-3.0); HEMATOCRIT 37.9 % (36.0-47.0); HEMOGLOBIN 12.9 g/dl (12.0-15.5); LYMPH # 2.5 10^3/uL (1.5-5.0); LYMPH % 38.1 % (24.0-44.0); MEAN CORPUSCULAR HEMOGLOBIN 31.2 pg (27.0-33.0); MEAN CORPUSCULAR VOLUME 91.5 fl (80.0-96.0); MONO # 0.4 10^3/uL (0.0-0.8); MONO % 6.3 % (2.0-8.0); NEUTROPHILS # 3.3 10^3/uL (1.5-8.5); NEUTROPHILS % 51.6 % (36.0-66.0); PLATELET COUNT, AUTOMATED 247 10^3/uL (150-450); RED BLOOD COUNT 4.14 10^6/uL (4.00-5.40); WHITE BLOOD COUNT 6.5 10^3/uL (4.0-10.0)
== END ==
LOC: M LAB 10:35
PROVIDERS: ATTEND Acupuncturist
DX: Z79.899 Other long term (current) drug therapy (principal)

== ENCOUNTER → 2024-06-15 | Outpatient (CLI) | payer MEDICARE, OTHER, MEDICAID | LOC: M WHC 11:15 | PROVIDERS: ATTEND Obstetrics & Gynecology Female Pelvic Medicine and Reconstructive Surgery | DX: Z12.31 Encounter for screening mammogram for malignant neoplasm of breast (principal); R92.323 Mammographic fibroglandular density, bilateral breasts ==

== ENCOUNTER → 2024-07-10 | Outpatient (REF) | payer MEDICARE, OTHER, MEDICAID ==
[2024-07-10 17:47] LABS: BASO % 0.3 % (0.0-1.0); EOS # 0.2 10^3/uL (0.0-0.5); EOS % 2.2 % (0.0-3.0); HEMATOCRIT 39.6 % (36.0-47.0); HEMOGLOBIN 13.6 g/dl (12.0-15.5); LYMPH # 2.2 10^3/uL (1.5-5.0); LYMPH % 23.8 % (24.0-44.0); MEAN CORPUSCULAR HEMOGLOBIN 32.8 pg (27.0-33.0); MEAN CORPUSCULAR HGB CONC 34.3 g/dl (32.0-36.5); MEAN CORPUSCULAR VOLUME 95.4 fl (80.0-96.0); MONO # 0.5 10^3/uL (0.0-0.8); MONO % 5.3 % (2.0-8.0); NEUTROPHILS # 6.3 10^3/uL (1.5-8.5); NEUTROPHILS % 67.8 % (36.0-66.0); PLATELET COUNT, AUTOMATED 267 10^3/uL (150-450); RED BLOOD COUNT 4.15 10^6/uL (4.00-5.40); WHITE BLOOD COUNT 9.3 10^3/uL (4.0-10.0)
== END ==
LOC: M LABWUC 16:20
PROVIDERS: ATTEND Acupuncturist
DX: Z79.899 Other long term (current) drug therapy (principal)

== ENCOUNTER → 2024-08-03 | Outpatient (CLI) | payer MEDICARE, OTHER, MEDICAID | LOC: M EKG 09:28 | PROVIDERS: ATTEND Registered Nurse | DX: R00.2 Palpitations (principal) ==

== ENCOUNTER → 2024-08-20 | Outpatient (REF) | payer MEDICARE, OTHER, MEDICAID ==
[2024-08-20 19:32] LABS: ALBUMIN 3.7 G/DL (3.2-5.2); ALKALINE PHOSPHATASE 105 U/L (35-104); ALT/SGPT 35 U/L (7.0-40); AST/SGOT 20 U/L (<34); BILIRUBIN,TOTAL 0.4 MG/DL (0.3-1.2); BLOOD UREA NITROGEN 13 MG/DL (9-23); CARBON DIOXIDE LEVEL 26 MMOL/L (20-31); CHLORIDE LEVEL 104 MMOL/L (98-107); CHOLESTEROL LEVEL 184 MG/DL (<200); CHOLESTEROL RISK RATIO 3.47 (<5); CREATININE FOR GFR 0.71 MG/DL (0.55-1.30); GLOMERULAR FILTRATION RATE > 60.0 (>45); GLUCOSE, FASTING 122 MG/DL (74-106); HDL CHOLESTEROL 52.9 MG/DL (>40); LDL CHOLESTEROL 92.3 MG/DL (<100); MAGNESIUM LEVEL 1.9 MG/DL (1.8-2.4); NON-HDL-C 131.1 MG/DL; POTASSIUM SERUM 4.5 MMOL/L (3.5-5.1); SODIUM LEVEL 138 MMOL/L (136-145); TOTAL PROTEIN 7.1 G/DL (5.7-8.2); TRIGLYCERIDES LEVEL 194 MG/DL (<150)
[2024-08-20 19:35] LABS: THYROID STIMULATING HORMONE 0.971 uIU/ML (0.55-4.78)
[2024-08-20 20:52] LABS: HEMOGLOBIN A1c 5.2 % (4.0-6.0)
== END ==
LOC: M LAB REF 18:21
PROVIDERS: ATTEND Nurse Practitioner Family
DX: E66.01 Morbid (severe) obesity due to excess calories (principal); Z79.899 Other long term (current) drug therapy

== ENCOUNTER → 2024-08-23 | Outpatient (CLI) | payer MEDICARE, OTHER, MEDICAID ==
[2024-08-23 18:11] LABS: ALBUMIN 3.9 G/DL (3.2-5.2); ALKALINE PHOSPHATASE 126 U/L (35-104); ALT/SGPT 35 U/L (7.0-40); AST/SGOT 18 U/L (<34); BASO % 0.2 % (0.0-1.0); BILIRUBIN,TOTAL 0.3 MG/DL (0.3-1.2); BLOOD UREA NITROGEN 16 MG/DL (9-23); CALCIUM LEVEL 9.2 MG/DL (8.3-10.6); CARBON DIOXIDE LEVEL 27 MMOL/L (20-31); CHLORIDE LEVEL 102 MMOL/L (98-107); CREATININE FOR GFR 0.69 MG/DL (0.55-1.30); EOS # 0.2 10^3/uL (0.0-0.5); EOS % 2.1 % (0.0-3.0); GLOMERULAR FILTRATION RATE > 60.0 (>45); GLUCOSE, FASTING 86 MG/DL (74-106); HEMATOCRIT 41.7 % (36.0-47.0); HEMOGLOBIN 14.5 g/dl (12.0-15.5); LYMPH # 2.4 10^3/uL (1.5-5.0); LYMPH % 27.1 % (24.0-44.0); MEAN CORPUSCULAR HEMOGLOBIN 31.9 pg (27.0-33.0); MEAN CORPUSCULAR HGB CONC 34.8 g/dl (32.0-36.5); MEAN CORPUSCULAR VOLUME 91.6 fl (80.0-96.0); MONO # 0.4 10^3/uL (0.0-0.8); MONO % 4.5 % (2.0-8.0); NEUTROPHILS # 5.7 10^3/uL (1.5-8.5); NEUTROPHILS % 65.5 % (36.0-66.0); PLATELET COUNT, AUTOMATED 307 10^3/uL (150-450); POTASSIUM SERUM 4.4 MMOL/L (3.5-5.1); RED BLOOD COUNT 4.55 10^6/uL (4.00-5.40); SODIUM LEVEL 137 MMOL/L (136-145); TOTAL PROTEIN 7.5 G/DL (5.7-8.2); WHITE BLOOD COUNT 8.7 10^3/uL (4.0-10.0)
== END ==
LOC: M WUC 14:49
PROVIDERS: ATTEND Acupuncturist
DX: Z79.899 Other long term (current) drug therapy (principal)
CPT/HCPCS: 36415; 80053; 80159; 85025; G0480

== ENCOUNTER → 2024-09-24 | Outpatient (CLI) | payer MEDICARE, OTHER, MEDICAID ==
[2024-09-24 18:35] LABS: BASO # 0.1 10^3/uL (0.0-0.2); BASO % 0.6 % (0.0-1.0); EOS # 0.2 10^3/uL (0.0-0.5); EOS % 2.5 % (0.0-3.0); HEMATOCRIT 40.6 % (36.0-47.0); LYMPH # 2.6 10^3/uL (1.5-5.0); LYMPH % 30.3 % (24.0-44.0); MEAN CORPUSCULAR HEMOGLOBIN 31.8 pg (27.0-33.0); MEAN CORPUSCULAR HGB CONC 34.5 g/dl (32.0-36.5); MEAN CORPUSCULAR VOLUME 92.3 fl (80.0-96.0); MONO # 0.5 10^3/uL (0.0-0.8); MONO % 6.1 % (2.0-8.0); NEUTROPHILS # 5.1 10^3/uL (1.5-8.5); NEUTROPHILS % 59.6 % (36.0-66.0); PLATELET COUNT, AUTOMATED 307 10^3/uL (150-450); WHITE BLOOD COUNT 8.5 10^3/uL (4.0-10.0)
== END ==
LOC: M WUC 13:50
PROVIDERS: ATTEND Acupuncturist
DX: Z51.81 Encounter for therapeutic drug level monitoring (principal); Z79.899 Other long term (current) drug therapy
CPT/HCPCS: 36415; 80159; 85025; G0480

== ENCOUNTER → 2024-10-18 | Outpatient (CLI) | payer MEDICARE, OTHER, MEDICAID ==
[2024-10-18 18:23] LABS: BASO % 0.4 % (0.0-1.0); EOS # 0.2 10^3/uL (0.0-0.5); EOS % 2.6 % (0.0-3.0); HEMATOCRIT 40.4 % (36.0-47.0); HEMOGLOBIN 13.9 g/dl (12.0-15.5); LYMPH # 2.2 10^3/uL (1.5-5.0); LYMPH % 28.5 % (24.0-44.0); MEAN CORPUSCULAR HEMOGLOBIN 32.1 pg (27.0-33.0); MEAN CORPUSCULAR HGB CONC 34.4 g/dl (32.0-36.5); MEAN CORPUSCULAR VOLUME 93.3 fl (80.0-96.0); MONO # 0.4 10^3/uL (0.0-0.8); MONO % 5.7 % (2.0-8.0); NEUTROPHILS # 4.7 10^3/uL (1.5-8.5); NEUTROPHILS % 62.1 % (36.0-66.0); PLATELET COUNT, AUTOMATED 272 10^3/uL (150-450); RED BLOOD COUNT 4.33 10^6/uL (4.00-5.40); WHITE BLOOD COUNT 7.6 10^3/uL (4.0-10.0)
[2024-10-18 18:37] LABS: ALBUMIN 3.8 G/DL (3.2-5.2); BILIRUBIN,TOTAL 0.4 MG/DL (0.3-1.2); CALCIUM LEVEL 8.8 MG/DL (8.3-10.6); CREATININE FOR GFR 0.76 MG/DL (0.55-1.30); GLOMERULAR FILTRATION RATE 89.1 (>45); POTASSIUM SERUM 4.2 MMOL/L (3.5-5.1); TOTAL PROTEIN 6.9 G/DL (5.7-8.2)
[2024-10-18 18:40] LABS: THYROID STIMULATING HORMONE 1.837 uIU/ML (0.55-4.78)
== END ==
LOC: M WUC 14:24
PROVIDERS: ATTEND Acupuncturist
DX: E55.9 Vitamin D deficiency, unspecified (principal); Z79.899 Other long term (current) drug therapy
CPT/HCPCS: 36415; 80053; 80159; 82306; 84443; 85025; G0480

== ENCOUNTER → 2025-01-05 | Outpatient (CLI) | payer MEDICARE, OTHER, MEDICAID ==
[2025-01-05 16:01] LABS: BASO # 0.0 10^3/uL (0.0-0.2); BASO % 0.5 % (0.0-1.0); EOS # 0.3 10^3/uL (0.0-0.5); EOS % 4.4 % (0.0-3.0); LYMPH # 2.2 10^3/uL (1.5-5.0); LYMPH % 36.7 % (24.0-44.0); MONO # 0.3 10^3/uL (0.0-0.8); MONO % 4.8 % (2.0-8.0); NEUTROPHILS # 3.2 10^3/uL (1.5-8.5); NEUTROPHILS % 53.1 % (36.0-66.0); PLATELET COUNT, AUTOMATED 256 10^3/uL (150-450)
[2025-01-05 16:41] LABS: IRON (FE) 88.0 UG/DL (50-170); PERCENT SATURATION 27.9 % (13.2-45.0)
[2025-01-05 16:42] LABS: ALT/SGPT 35.0 U/L (7.0-40); AST/SGOT 27.0 U/L (<34); CALCIUM LEVEL 9.1 MG/DL (8.3-10.6); CARBON DIOXIDE LEVEL 27.0 MMOL/L (20-31); CHLORIDE LEVEL 106.0 MMOL/L (98-107); CHOLESTEROL LEVEL 185.0 MG/DL (<200); CHOLESTEROL RISK RATIO 4.27 (<5); CREATININE FOR GFR 0.94 MG/DL (0.55-1.30); GLOMERULAR FILTRATION RATE 69.0 (>45); LDL CHOLESTEROL 101.5 MG/DL (<100); MAGNESIUM LEVEL 2.0 MG/DL (1.8-2.4); NON-HDL-C 141.7 MG/DL; POTASSIUM SERUM 4.1 MMOL/L (3.5-5.1); SODIUM LEVEL 141.0 MMOL/L (136-145); TRIGLYCERIDES LEVEL 201.0 MG/DL (<150)
[2025-01-05 16:43] LABS: THYROXINE (T4) 7.9 UG/DL (4.5-10.9); TOTAL 25(OH) VITAMIN D 69.8 NG/ML (20.0-100.0)
[2025-01-05 17:10] LABS: TOTAL T3 75.4 NG/DL (60.0-181.0)
== END ==
LOC: M LAB 14:53
PROVIDERS: ATTEND Acupuncturist
DX: Z79.899 Other long term (current) drug therapy (principal); E55.9 Vitamin D deficiency, unspecified; D50.9 Iron deficiency anemia, unspecified

== ENCOUNTER → 2025-01-05 | Outpatient (CLI) | payer MEDICARE, OTHER, MEDICAID ==
[2025-01-05 16:05] LABS: BASO # 0.0 10^3/uL (0.0-0.2); BASO % 0.3 % (0.0-1.0); EOS # 0.2 10^3/uL (0.0-0.5); EOS % 4.0 % (0.0-3.0); LYMPH # 2.1 10^3/uL (1.5-5.0); LYMPH % 35.6 % (24.0-44.0); MONO # 0.3 10^3/uL (0.0-0.8); MONO % 5.4 % (2.0-8.0); NEUTROPHILS # 3.2 10^3/uL (1.5-8.5); NEUTROPHILS % 54.4 % (36.0-66.0); PLATELET COUNT, AUTOMATED 252 10^3/uL (150-450)
[2025-01-05 16:40] LABS: ALT/SGPT 36.0 U/L (7.0-40); AST/SGOT 30.0 U/L (<34); CALCIUM LEVEL 9.0 MG/DL (8.3-10.6); CARBON DIOXIDE LEVEL 21.0 MMOL/L (20-31); CHLORIDE LEVEL 107.0 MMOL/L (98-107); CREATININE FOR GFR 0.91 MG/DL (0.55-1.30); GLOMERULAR FILTRATION RATE 71.8 (>45); MAGNESIUM LEVEL 1.9 MG/DL (1.8-2.4); POTASSIUM SERUM 4.3 MMOL/L (3.5-5.1); SODIUM LEVEL 141.0 MMOL/L (136-145)
== END ==
LOC: M LAB 14:55
PROVIDERS: ATTEND Registered Nurse
DX: I50.32 Chronic diastolic (congestive) heart failure (principal)

== ENCOUNTER → 2025-01-05 | Outpatient (CLI) | payer MEDICARE, OTHER, MEDICAID ==
[2025-01-05 16:03] LABS: BASO # 0.0 10^3/uL (0.0-0.2); BASO % 0.3 % (0.0-1.0); EOS # 0.2 10^3/uL (0.0-0.5); EOS % 4.0 % (0.0-3.0); LYMPH # 2.2 10^3/uL (1.5-5.0); LYMPH % 36.1 % (24.0-44.0); MONO # 0.3 10^3/uL (0.0-0.8); MONO % 5.3 % (2.0-8.0); NEUTROPHILS # 3.2 10^3/uL (1.5-8.5); NEUTROPHILS % 53.6 % (36.0-66.0); PLATELET COUNT, AUTOMATED 256 10^3/uL (150-450)
[2025-01-05 16:15] LABS: ESTIMATED AVERAGE GLUCOSE 114.0 MG/DL (60-110)
[2025-01-05 16:43] LABS: ALT/SGPT 36.0 U/L (7.0-40); AST/SGOT 28.0 U/L (<34); CALCIUM LEVEL 8.9 MG/DL (8.3-10.6); CARBON DIOXIDE LEVEL 24.0 MMOL/L (20-31); CHLORIDE LEVEL 105.0 MMOL/L (98-107); CPK CREATINE PHOSPHOKINASE 35.0 U/L (34-145); CREATININE FOR GFR 0.95 MG/DL (0.55-1.30); GLOMERULAR FILTRATION RATE 68.2 (>45); POTASSIUM SERUM 4.1 MMOL/L (3.5-5.1); SODIUM LEVEL 142.0 MMOL/L (136-145)
[2025-01-05 16:45] LABS: VITAMIN B12 LEVEL 421.0 PG/ML (211-911)
[2025-01-05 17:07] LABS: RHEUMATOID FACTOR QUANT 3.7 IU/ML (<14)
[2025-01-07 15:47] LABS: T P ELECTROPHORESIS SO 7.0 g/dL (6.1-8.1)
[2025-01-08 16:38] LABS: ANGIOTENSIN 1 CONVERTING ENZYM 34 U/L (9-67)
== END ==
LOC: M LAB 14:51
PROVIDERS: ATTEND Nurse Practitioner
DX: G25.79 Other drug induced movement disorders (principal); E55.9 Vitamin D deficiency, unspecified; D50.9 Iron deficiency anemia, unspecified; I50.32 Chronic diastolic (congestive) heart failure; Z79.899 Other long term (current) drug therapy; R73.09 Other abnormal glucose; G60.3 Idiopathic progressive neuropathy; R20.2 Paresthesia of skin; M54.50 Low back pain, unspecified; R40.4 Transient alteration of awareness; G31.84 Mild cognitive impairment of uncertain or unknown etiology
CPT/HCPCS: 36415; 80053; 80061; 80159; 82164; 82175; 82306; 82550; 82607; 82728; 82746; 83036; 83550; 83655; 83735; 83825; 83880; 84155; 84165; 84436; 84443; 84480; 85025; 86038; 86200; 86334; 86431; 86617; G0480

== ENCOUNTER → 2025-02-10 | Outpatient (CLI) | payer MEDICARE, OTHER, MEDICAID | LOC: M LAB 13:54 | PROVIDERS: ATTEND Acupuncturist | DX: Z51.81 Encounter for therapeutic drug level monitoring (principal); Z79.899 Other long term (current) drug therapy | CPT/HCPCS: 36415; 80159; G0480 ==

== ENCOUNTER → 2025-03-04 | Outpatient (CLI) | payer MEDICARE, OTHER, MEDICAID | LOC: M PLAIMG 13:48 | PROVIDERS: ATTEND Nurse Practitioner | DX: G90.09 Other idiopathic peripheral autonomic neuropathy (principal); R41.841 Cognitive communication deficit; G60.3 Idiopathic progressive neuropathy; R20.2 Paresthesia of skin; M54.50 Low back pain, unspecified; R40.4 Transient alteration of awareness; G31.84 Mild cognitive impairment of uncertain or unknown etiology; M47.817 Spondylosis without myelopathy or radiculopathy, lumbosacral region; M47.812 Spondylosis without myelopathy or radiculopathy, cervical region ==